=== PATIENT | female | born 1950 | race Caucasian/White ===

== ENCOUNTER 2017-02-23 10:50 | Inpatient (IN) | payer OTHER, MEDICAID, MEDICARE ==
--- NOTE | 2017-02-23 11:02 | ED Physician Chart ---
Chief Complaint/HPI - Patient Information Date Seen:: 02/23/17 Time Seen:: 10:51 Chief Complaint:: Hearing voices. History of Present Illness:: Brought in by ambulance with [place] [employer] officers. Pt has h/o schizophrenia. Pt states she has been hearing voices that tell her to kill herself. Pt has been put on 5150. Pt states she feels depressed. No H.I. or S. I. Pt has no specific bodily pain. Pt appears to be anxious and does not give consistent history. H & P are limited because pt is not fully cooperative. Allergies:: Haldol and geodon. Vitals:: see Nurse Note. Historian:: Patient, Other ([place] PD officer.) Family MD/PCP:: unknown LMP:: Postmenopausal Review:: Nurse's Note Reviewed Review of Systems - Review of Systems General/Constitutional: Other (Pt does not cooperate for ROS.) Past Medical History - Past Medical History Past Medical History: DM Family History: Other (Pt does not cooperate to provide reliable info on FHx.) Social History: Other (Pt does not cooperate to provide reliable info on SHx.) Surgical History: other (Pt does not cooperate to provide reliable info on Surgical Hx.) Psychiatricy History: Schizophrenia Medication: Reviewed Family Medical History - Family Member Mother History Unknown: Yes Physical Exam - Physical Examination General/Constitutional: Awake, Well-developed, well-nourished, Alert, No distress, Non-toxic appearing Other Gen/Cons comments:: Speaks clearly and breathes comfortably. Pt appears to be anxious initially, but pt is now calm and in no distress. Head: Atraumatic Eyes: Lids, conjuctiva normal, PERRL, EOMI Skin: Nl inspection, No rash, No skin lesions, No ecchymosis, Well hydrated, No lymphadenopathy ENMT: External ears, nose nl, Nasal exam nl, Oropharynx nl Neck: Nontender, Full ROM w/o pain, No JVD, No nuchal rigidity, No mass, No stridor Respiratory: Nl effort/Exclusion, Clear to Auscultation, No Wheeze/Rhonchi/Rales Cardio Vascular: RRR, No murmur, gallop, rubs GI: No tenderness/rebounding/guarding, No organomegaly, No hernia, Normal BS's, Nondistended, No mass/bruits, No McBurney tenderness Other GI comments:: Obese but soft. Extremities: No tenderness or effusion, Full ROM, normal strength in all extremities, No edema, Normal digits & nails Neuro/Psych: Alert/oriented (knows her name and that she is in hospital) Other Neuro/Psych comments:: spontaneous movements noticed in all 4 extremities. Pt does not cooperate for full neurological exam. Labs/Radiology/EKG Results - Lab Results Results: Laboratory Tests 02/23/17 02/23/17 02/23/17 11:20 11:20 11:20 WBC 11.9 H RBC 4.14 Hgb 11.3 L Hct 33.4 L MCV 80.7 L MCH 27.3 MCHC Differential 33.9 RDW 15.4 Plt Count 355 MPV 7.2 Neutrophils % 82.0 H Lymphocytes % 10.0 L Monocytes % 7.3 Eosinophils % 0.5 Basophils % 0.2 PT 9.8 INR 0.94 PTT (Actin FS) 23.9 L Sodium 132 L Potassium 4.1 Chloride 103 Carbon Dioxide 22.1 Anion Gap 11.0 BUN 17 Creatinine 0.7 Est GFR ( Amer) > 60.0 Est GFR (Non-Af Amer) > 60.0 BUN/Creatinine Ratio 24.3 Glucose 101 Calcium 9.2 Total Bilirubin 0.4 AST 14 ALT 16 Alkaline Phosphatase 75 Creatine Kinase 47 Troponin I Total Protein 6.5 Albumin 3.8 Globulin 2.7 Albumin/Globulin Ratio 1.4 Salicylates < 25.0 L Acetaminophen < 10.0 L Ethyl Alcohol < 10 02/23/17 11:20 WBC RBC Hgb Hct MCV MCH MCHC Differential RDW Plt Count MPV Neutrophils % Lymphocytes % Monocytes % Eosinophils % Basophils % PT INR PTT (Actin FS) Sodium Potassium Chloride Carbon Dioxide Anion Gap BUN Creatinine Est GFR ( Amer) Est GFR (Non-Af Amer) BUN/Creatinine Ratio Glucose Calcium Total Bilirubin AST ALT Alkaline Phosphatase Creatine Kinase Troponin I < 0.01 L Total Protein Albumin Globulin Albumin/Globulin Ratio Salicylates Acetaminophen Ethyl Alcohol - Radiology Results Results: PCR: Poor inspiration; otherwise, NAD. Official report is pending. - EKG Interpretations EKG Time:: 11:58 Rate & Rhythm: NSR with VR 99 Comments:: RBBB. No acute ischemic changes. ED Septic Shock - . Is Septic Shock (SBP<90, OR Lactate>4 mmol\L) present?: No Reassessment (Disposition) - Reassessment Reassessment:: 1545 Pt has been repeatedly evaluated. Pt became calm after Ativan was given earlier. Pt remains stable. Pt is medically stable. [facility] staff had contacted Dr. Estrada who accepted [facility] Pt's medical conditions are to be managed by in house physician Dr. Marshall, who will also follow on pending lab results. Reassessment Condition:: Improved - Diagnosis Diagnosis:: Schizophrenia with auditory hallucinations. Urinary tract infection. - Patient Disposition Admitted to:: [facility] Admitting Medical Physician:: Mark Marshall Admitting Psych Physician:: Moses Estrada Time:: 15:50 Condition at Disposition:: Stable, Improved ED Discharge Plan - Patient Disposition Admit/Discharge/Transfer: Other Care w/in this hosp Condition at Disposition: Stable
[2017-02-23 11:40] LABS: HEMOGLOBIN 11.3 gm/dL (11.7-16.1)
[2017-02-23 11:42] LABS: % BASOPHILS 0.2 % (0.0-2.0); MEAN CORPUSCULAR HGB CONC 33.9 pg (28.0-36.0); RED BLOOD COUNT 4.14 Mil/cmm (3.80-5.20)
[2017-02-23 11:44] LABS: INR 0.94 (0.5-1.4); PROTHROMBIN TIME (TEST) 9.8 SECONDS (9.5-11.5)
[2017-02-23 11:45] LABS: % EOSINOPHILS 0.5 % (0.0-5.0); % MONOCYTES 7.3 % (2.0-10.0); HEMATOCRIT 33.4 % (35.0-45.0); MEAN CELL VOLUME 80.7 fl (81-100); MEAN CORPUSCULAR HEMOGLOBIN 27.3 pg (27.0-31.0); MEAN PLATELET VOLUME 7.2 fl; NEUTROPHILE ABSOLUTE 9.7 Th/cmm (1.8-8.0); PLATELET COUNT 355 Th/cmm (150-400); RED CELL DISTRIBUTION WIDTH 15.4 % (11.5-20.0); WHITE BLOOD COUNT 11.9 Th/cmm (4.8-10.8)
[2017-02-23 11:48] LABS: ACETAMINOPHEN < 10.0 ug/mL (10.0-30.0); ALB/GLOB RATIO 1.4 (1.0-1.8); ALKALINE PHOSPHATASE 75 U/L (34-104); BILIRUBIN,TOTAL 0.4 mg/dL (0.3-1.0); BUN - UREA NITROGEN 17 mg/dL (7-25); BUN/CREATININE RATIO 24.3; CALCIUM SERUM 9.2 mg/dL (8.6-10.3); CARBON DIOXIDE 22.1 mEq/L (21.0-31.0); CHLORIDE 103 mEq/L (98-107); CREATININE - SERUM 0.7 mg/dL (0.6-1.2); GLUCOSE 101 mg/dL (70-105); POTASSIUM SERUM 4.1 mEq/L (3.5-5.1); SGOT 14 U/L (13-39); SGPT/ALT 16 U/L (7-52); SODIUM SERUM 132 mEq/L (136-145)
[2017-02-23 12:56] LABS: URINE COLOR YELLOW
[2017-02-23 12:57] LABS: URINE BILIRUBIN NEGATIVE (NEGATIVE); URINE BLOOD TRACE (NEGATIVE); URINE GLUCOSE (UA) NEGATIVE (NEGATIVE); URINE KETONE NEGATIVE (NEGATIVE); URINE PH 5.5; URINE PROTEIN TRACE mg/dL (NEGATIVE); URINE UROBILINOGEN 0.2 E.U./dL (0.2 - 1.0)
[2017-02-23 12:58] LABS: URINE RBC 0-2 /hpf (0-5)
[2017-02-23 12:59] LABS: URINE BACTERIA MANY /hpf (NONE SEEN); URINE EPITHELIAL CELLS OCCASIONAL /lpf (FEW)
[2017-02-23 13:16] LABS: AMPHETAMINE URINE NEGATIVE (NEGATIVE); BARBITURATES URINE NEGATIVE (NEGATIVE); METHADONE URINE NEGATIVE (NEGATIVE)
[2017-02-23] MEDS ORDERED: Sulfamethoxazole/TMP 800/160mg Tab PO ONE (13:40)
[2017-02-23] MEDS ORDERED: Sulfamethoxazole/TMP 800/160mg Tab ONE (13:54)
[2017-02-23] MEDS ORDERED: Magnesium Hydroxide (MOM) 30 mL UDC PO PRN ×2 (16:27→17:42)
[2017-02-23] MEDS ORDERED: Maalox 30 mL Cup PO PRN (16:27)
[2017-02-23 16:44] VITALS: BP 152/79
[2017-02-23] MEDS: Benztropine 1 MG TAB PO SCH (18:13)
[2017-02-23] MEDS ORDERED: Non-Formulary Item 1 EA (Trazodone Hcl [Trazodone Hcl] 200 MG) PO SCH (21:00)
[2017-02-23] MEDS: INSULIN ASPART SLIDING SCALE 100 UNITS/ML UNIT SUBQ SCH (21:00)
[2017-02-24] MEDS: INSULIN ASPART SLIDING SCALE 100 UNITS/ML UNIT SUBQ SCH ×4 (07:04→20:53)
[2017-02-24 08:00] LABS: ANION GAP 5.7 (7.0-16.0); CARBON DIOXIDE 25.4 mEq/L (21.0-31.0); POTASSIUM SERUM 4.1 mEq/L (3.5-5.1)
[2017-02-24] MEDS: Aspirin 81mg Chewable Tab PO SCH (08:18)
[2017-02-24] MEDS: Benztropine 1 MG TAB PO SCH ×2 (08:18→16:37)
[2017-02-24] MEDS: Multivitamin Tab PO SCH (08:18)
--- NOTE | 2017-02-24 08:26 | Diagnostic Imaging Report ---
CHEST X-RAY: AP view INDICATION: pain COMPARISON: None FINDINGS: Exam is limited due to body habitus. Mild Chronic lung changes are seen with areas of scarring. No focal consolidation or effusions. Heart size is at the upper limits of normal. Degenerative changes of the spine and shoulders are noted. IMPRESSION: Mild chronic lung changes with areas of scarring. No focal consolidation identified.
--- NOTE | 2017-02-24 13:09 | History & Physical ---
ADMIT DATE: 02/23/2017 PATIENT IDENTIFICATION: The patient is a 67-year-old female. CHIEF COMPLAINT: "I don't feel good." HISTORY OF PRESENT ILLNESS: A 67-year-old [place] female who has a substantial psychiatric and medical history, admitted by Dr. Estrada with legal status of 5150 after the patient was having suicidal thoughts to kill herself. The patient has now been admitted. PAST MEDICAL HISTORY: Remarkable for: 1. Psychotic disorder. 2. Diabetes. 3. Hyperlipidemia. 4. Hypertension. 5. DJD. MEDICATIONS: List has been reviewed and reconciled appropriately. ALLERGIES: THE PATIENT IS ALLERGIC TO GEODON AND HALDOL. SOCIAL HISTORY: The patient lives with her sister in [facility]. The patient does not smoke, does not drink. FAMILY MEDICAL HISTORY: Remarkable for hypertension and diabetes. REVIEW OF SYSTEMS: The patient stated that she cannot walk though the patient is able to get out of the bed without any difficulty. The patient currently denies any chest pain, shortness of breath, palpitation, dizziness, nausea, vomiting, diarrhea, dysuria, hematuria, hematochezia, melena. No history of any seizure or syncopal episode. No weight loss or weight gain. No history of any tingling, numbness. Obstetric and SERVICES MGR history, she is menopausal. She has 4 children. PHYSICAL EXAMINATION: GENERAL: The patient is alert, awake, lying in the bed without any acute distress. VITAL SIGNS: Temperature 97.8, pulse is 74, respiratory rate 18, blood pressure 134/70. SKIN: Warm to touch. HEENT: Normocephalic, atraumatic. Extraocular muscles are intact. Tongue was pink and coated. No oral lesion, no exudate. No sinus tenderness. External auditory canal and tympanic membranes are well visualized. Poor dentition noted. NECK: Supple, no JVD, no hepatojugular reflux. No lymphadenopathy, thyromegaly or carotid bruit. HEART: Both heart sounds are regular. Grade 2/6 systolic murmur noted. CHEST: Lung equal in expansion, no wheezing, no crackles. ABDOMEN: Soft. No guarding, no rigidity. Liver, spleen not palpable. No palpable mass. EXTREMITIES: No edema, no cyanosis, no clubbing. Peripheral pulses are +2. No calf tenderness noted. NEUROLOGIC: Alert, awake, oriented to time, place and person, 2-12 cranial nerves are intact. Power in upper and lower extremities, 5+. Sensation to touch is intact. Babinskis in both toes are going down. No cerebral sign. AVAILABLE DIAGNOSTIC DATA: Has been reviewed. CLINICAL IMPRESSION: 1. Diabetes. 2. Hypertension. 3. Hyperlipidemia. 4. Degenerative joint disease. 5. Psychotic disorder. 6. History of seizure disorder. 7. Fall risk. PLAN: 1. The patient will be resuming her home medicine as patient receiving. 2. Psych medication. 3. Psych followup. 4. Seizure medication. 5. Seizure precaution. 6. General nursing care. 7. The patient is medically stable to participate in activity per the [facility]. 8. Care plan has been reviewed and discussed with staff. 9. We will continue to follow this patient during her stay in the hospital. JOB# [id number]
[2017-02-25] MEDS: INSULIN ASPART SLIDING SCALE 100 UNITS/ML UNIT SUBQ SCH ×4 (06:43→20:43)
[2017-02-25] MEDS: Benztropine 1 MG TAB PO SCH ×2 (08:17→16:16)
[2017-02-25] MEDS: Multivitamin Tab PO SCH (08:17)
[2017-02-25] MEDS: Aspirin 81mg Chewable Tab PO SCH (08:17)
--- NOTE | 2017-02-25 13:00 | Psychosocial Evaluation ---
DATE OF SERVICE: 02/24/2017 IDENTIFYING DATA: The patient is a 67-year-old admitted on involuntary basis in view of her acute agitation and threat to kill herself. CHIEF COMPLAINT: "I don't know this anxiety is making me worse and the voices are becoming too much, I cannot deal with them." HISTORY OF PRESENT ILLNESS: This is one of multiple psychiatric hospitalizations for this patient who has been diagnosed to have schizoaffective disorder and was hospitalized on ____ in [facility] and [facility]. The patient is reported to have been recently hospitalized at [facility] and also at [facility] in [place]. The patient is reporting that the voices are becoming too much and she wants to end her life. The patient had a history of being on pain medications as well as on the benzodiazepines. The patient is insisting that she needs to have 1 mg twice a day of the Ativan, otherwise she is going to be having so much of anxiety. The patient is endorsing to command hallucinations, telling that she needs to run into the traffic. The patient is also stating that I should not be getting in touch with her sister because she feels that the sister is not of any help. Sleep and appetite prior to the hospitalization are reported to be poor. PAST PSYCHIATRIC HISTORY: Please refer to the above. MEDICAL HISTORY AND PHYSICAL EXAMINATION: Requested done by Dr. Hernandez. SUBSTANCE ABUSE HISTORY: None. PHYSICAL OR SEXUAL ABUSE HISTORY: None. LEGAL PROBLEMS: None at this time. STRENGTH AND ASSETS: The patient is motivated. MENTAL STATUS EXAMINATION: The patient is a 67-year-old, looking her stated age, superficially cooperative. Eye contact is poor. Mood is noted to be irritable. Affect is constricted. Insight and judgment at this time are noted to be very much impaired. Impulse control seems to be poor. Coping skills are also noted to be poor. The patient has been having difficult time to cope with the stress. The patient is currently on the Clozaril and is stating that it has been of some help. The patient is stating that SHE IS ALLERGIC TO HALDOL, ____ and ABILIFY. The patient has been taking almost up to 400 mg of the Clozaril and patient is on 300 mg of the trazodone at night time. Even with these medications, the patient is stating that she has been worried about the voices. The patient is not able to contract for safety. The patient is paranoid and responding to internal stimuli. The patient is alert and oriented x 3. Insight and judgment are very much impaired. Impulse control seems to be poor. DIAGNOSTIC IMPRESSION: Schizoaffective disorder. SECONDARY: None. MEDICAL DIAGNOSES: Diabetes mellitus, and as per Dr. Hernandez. IMMEDIATE TREATMENT PLAN: The patient is going to be observed on inpatient unit, provided with supportive psychotherapy. The patient is going to be closely monitored. Once stabilized, the patient is going to be discharged to [facility] to be followed up on an outpatient basis. ESTIMATED LENGTH OF STAY: 3-5 days. DISCHARGE CRITERIA: When she no longer a threat to self or others and be able to cope up with the stress. [facility]# [id number]
--- NOTE | 2017-02-25 18:52 | General Progress Note ---
Subjective - Review of Systems Subjective: PATIENT IS SEEN AND EXAMINED. FEELING OK. REMAIN AFEBRILE. ANXIOUS. DISCUSSED WITH STAFF RE; THEIR CONCERNS AND TREATMENT PLAN. Objective - Results Result Diagrams: 02/23/17 11:20 02/24/17 07:24 Recent Labs: Laboratory Last Values WBC 11.9 Th/cmm (4.8-10.8) H 02/23/17 11:20 RBC 4.14 Mil/cmm (3.80-5.20) 02/23/17 11:20 Hgb 11.3 gm/dL (11.7-16.1) L 02/23/17 11:20 Hct 33.4 % (35.0-45.0) L 02/23/17 11:20 MCV 80.7 fl (81-100) L 02/23/17 11:20 MCH 27.3 pg (27.0-31.0) 02/23/17 11:20 MCHC Differential 33.9 pg (28.0-36.0) 02/23/17 11:20 RDW 15.4 % (11.5-20.0) 02/23/17 11:20 Plt Count 355 Th/cmm (150-400) 02/23/17 11:20 MPV 7.2 fl 02/23/17 11:20 Neutrophils % 82.0 % (40.0-80.0) H 02/23/17 11:20 Lymphocytes % 10.0 % (20.0-50.0) L 02/23/17 11:20 Monocytes % 7.3 % (2.0-10.0) 02/23/17 11:20 Eosinophils % 0.5 % (0.0-5.0) 02/23/17 11:20 Basophils % 0.2 % (0.0-2.0) 02/23/17 11:20 PT 9.8 SECONDS (9.5-11.5) 02/23/17 11:20 INR 0.94 (0.5-1.4) 02/23/17 11:20 PTT (Actin FS) 23.9 SECONDS (26.0-38.0) L 02/23/17 11:20 Sodium 132 mEq/L (136-145) L 02/24/17 07:24 Potassium 4.1 mEq/L (3.5-5.1) 02/24/17 07:24 Chloride 105 mEq/L (98-107) 02/24/17 07:24 Carbon Dioxide 25.4 mEq/L (21.0-31.0) 02/24/17 07:24 Anion Gap 5.7 (7.0-16.0) L 02/24/17 07:24 BUN 17 mg/dL (7-25) 02/23/17 11:20 Creatinine 0.7 mg/dL (0.6-1.2) 02/23/17 11:20 Est GFR ( Amer) > 60.0 ml/min (>90) 02/23/17 11:20 Est GFR (Non-Af Amer) > 60.0 ml/min 02/23/17 11:20 BUN/Creatinine Ratio 24.3 02/23/17 11:20 Glucose 101 mg/dL (70-105) 02/23/17 11:20 POC Glucose 90 MG/DL (70 - 105) 02/25/17 16:46 Calcium 9.2 mg/dL (8.6-10.3) 02/23/17 11:20 Total Bilirubin 0.4 mg/dL (0.3-1.0) 02/23/17 11:20 AST 14 U/L (13-39) 02/23/17 11:20 ALT 16 U/L (7-52) 02/23/17 11:20 Alkaline Phosphatase 75 U/L (34-104) 02/23/17 11:20 Creatine Kinase 47 U/L (30-223) 02/23/17 11:20 Troponin I < 0.01 ng/mL (0.01-0.05) L 02/23/17 11:20 Total Protein 6.5 gm/dL (6.0-8.3) 02/23/17 11:20 Albumin 3.8 gm/dL (3.7-5.3) 02/23/17 11:20 Globulin 2.7 gm/dL 02/23/17 11:20 Albumin/Globulin Ratio 1.4 (1.0-1.8) 02/23/17 11:20 Triglycerides 271 mg/dL (<150) H 02/24/17 07:24 Cholesterol 202 mg/dL (<200) H 02/24/17 07:24 LDL Cholesterol Direct 136 mg/dL (75-193) 02/24/17 07:24 HDL Cholesterol 43 mg/dL (23-92) 02/24/17 07:24 TSH 0.19 uIU/ml (0.34-5.60) L 02/23/17 11:20 Urine Source CLEAN C 02/23/17 12:20 Urine Color YELLOW 02/23/17 12:20 Urine Clarity TURBID (CLEAR) H 02/23/17 12:20 Urine pH 5.5 02/23/17 12:20 Ur Specific Omer 1.015 (1.005-1.030) 02/23/17 12:20 Urine Protein TRACE mg/dL (NEGATIVE) 02/23/17 12:20 Urine Glucose (UA) NEGATIVE mg/dL (NEGATIVE) 02/23/17 12:20 Urine Ketones NEGATIVE mg/dL (NEGATIVE) 02/23/17 12:20 Urine Blood TRACE (NEGATIVE) 02/23/17 12:20 Urine Nitrate POSITIVE (NEGATIVE) H 02/23/17 12:20 Urine Bilirubin NEGATIVE (NEGATIVE) 02/23/17 12:20 Urine Urobilinogen 0.2 E.U./dL (0.2 - 1.0) 02/23/17 12:20 Ur Leukocyte Esterase NEGATIVE (NEGATIVE) 02/23/17 12:20 Urine RBC 0-2 /hpf (0-5) 02/23/17 12:20 Urine WBC 2-5 /hpf (0-5) 02/23/17 12:20 Ur Epithelial Cells OCCASIONAL /lpf (FEW) 02/23/17 12:20 Urine Bacteria MANY /hpf (NONE SEEN) 02/23/17 12:20 Salicylates < 25.0 mg/L (30.0-100.0) L 02/23/17 11:20 Urine Opiates Screen NEGATIVE (NEGATIVE) 02/23/17 12:20 Urine Methadone Screen NEGATIVE (NEGATIVE) 02/23/17 12:20 Acetaminophen < 10.0 ug/mL (10.0-30.0) L 02/23/17 11:20 Ur Barbiturates Screen NEGATIVE (NEGATIVE) 02/23/17 12:20 Ur Tricyclics Screen POSITIVE (NEGATIVE) H 02/23/17 12:20 Ur Phencyclidine Scrn NEGATIVE (NEGATIVE) 02/23/17 12:20 Amphetamines Screen NEGATIVE (NEGATIVE) 02/23/17 12:20 U Methamphetamines Scrn NEGATIVE (NEGATIVE) 02/23/17 12:20 U Benzodiazepines Scrn POSITIVE (NEGATIVE) H 02/23/17 12:20 U Cocaine Metab Screen NEGATIVE (NEGATIVE) 02/23/17 12:20 U Cannabinoids Screen NEGATIVE (NEGATIVE) 02/23/17 12:20 Ethyl Alcohol < 10 mg/dL (0-10) 02/23/17 11:20 RPR NONREACTIVE (NONREACTIVE) 02/24/17 07:24 - Physical Exam Vitals and I&O: Vital Signs Temp 98.2 F 02/25/17 15:44 Pulse 98 02/25/17 15:44 Resp 20 02/25/17 15:44 BP 144/84 02/25/17 15:44 Pulse Ox 100 02/25/17 15:44 Intake & Output 02/24/17 02/25/17 02/25/17 18:59 06:59 18:59 Intake Total 1800 1800 Balance 1800 1800 Weight (lbs) 73.482 kg Intake: Oral 1800 1800 Other: # Voids 4 2 4 # Bowel Movements 0 0 Active Medications: Current Medications Acetaminophen (Tylenol) 650 mg PO Q4HR PRN PRN Reason: pain/fever Stop: 04/24/17 16:26 Last Admin: 02/25/17 09:34 Dose: 650 mg Al Hydrox/Mg Hydrox/Simethicone (Maalox) 30 ml PO Q4HR PRN PRN Reason: GI DISTRESS Stop: 04/24/17 16:26 Aspirin (Aspirin Chewable) 81 mg PO DAILY GEMA Stop: 04/25/17 08:59 Last Admin: 02/25/17 08:17 Dose: 81 mg Benztropine Mesylate (Cogentin) 1 mg PO BID GEMA Stop: 04/24/17 16:59 Last Admin: 02/25/17 16:16 Dose: 1 mg Clozapine (Clozaril) 100 mg PO DAILY GEMA Stop: 04/25/17 08:59 Last Admin: 02/25/17 08:17 Dose: 100 mg Clozapine (Clozaril) 300 mg PO HS GEMA Stop: 04/24/17 20:59 Last Admin: 02/24/17 20:52 Dose: 300 mg Hydroxyzine Pamoate (Vistaril) 25 mg PO BID GEMA PRN Reason: Protocol Stop: 04/24/17 16:59 Last Admin: 02/25/17 16:16 Dose: 25 mg Insulin Aspart (Novolog Insulin Sliding Scale) 1 units SUBQ ACHS GEMA PRN Reason: Protocol Stop: 04/24/17 20:59 Last Admin: 02/25/17 16:54 Dose: Not Given Lorazepam (Ativan) 0.5 mg PO Q6HR PRN; Protocol PRN Reason: Anxiety Stop: 04/24/17 17:40 Last Admin: 02/25/17 16:16 Dose: 0.5 mg Magnesium Hydroxide (Milk Of Magnesia) 30 ml PO DAILY PRN PRN Reason: Constipation Stop: 04/24/17 17:41 Metformin HCl (Glucophage) 500 mg PO BID GEMA Stop: 04/24/17 16:59 Last Admin: 02/25/17 16:16 Dose: 500 mg Multivitamins/Vitamin C (Theragran) 1 tab PO DAILY GEMA Stop: 04/25/17 08:59 Last Admin: 02/25/17 08:17 Dose: 1 tab Trazodone HCl (Desyrel) 200 mg PO HS GEMA Stop: 04/24/17 20:59 Last Admin: 02/24/17 20:52 Dose: 200 mg Zolpidem Tartrate (Ambien) 5 mg PO HS PRN PRN Reason: Insomnia Stop: 04/24/17 16:26 General: Alert, Oriented x3, Cooperative HEENT: Atraumatic, PERRLA, EOMI, Mucous membr. moist/pink Neck: Supple, +2 carotid pulse wo bruit Cardiovascular: Regular rate, Normal S1, Normal S2 Lungs: Clear to auscultation Abdomen: Bowel sounds, Soft Extremities: Other (no edema,diffuse DJD changes.) Neurological: Normal gait, Strength at 5/5 X4 ext, Normal tone Assessment/Plan - Problem List Patient Problems: All Active Problems Diabetes (Acute) E11.9 History of seizure (Acute) Z87.898 Psychosis (Acute) F29 - Assessment Assessment: DIABETES. HTN SEIZURE HYPERLIPEDEMIA DJD PSYCH DISORDER FALL RISK DEBILITY - Plan Plan: MONITOR GLUCOSE AND VITALS MONITOR LAB SEIZURE MEDS SEIZURE PRECAUTIONS PSYCH MEDS PSYCH FOLLOW UP GENERAL NURSING CARE FALL PRECAUTIONS MEDICATION MANAGEMENT SYMPTOMS CONTROL DISCUSSED WITH STAFF. Nutritional Asmnt/Malnutr-PDOC - Dietary Evaluation Malnutrition Findings (Please click <Entered> for more info): Nutritional Asmnt/Malnutrition Start: 02/25/17 14: 20 Text: Status: Complete Freq: Document 02/25/17 14:20 GSUN (Rec: 02/25/17 14:36 [id number]) Nutritional Asmnt/Malnutrition Patient General Information Nutritional Screening Moderate Risk Screening Diagnosis 5150, schizoaffective disorder Pertinent Medical Hx/Surgical Hx DM, hyperlipidemia, HTN, DJD Subjective Information 67 year old female from home. Pt was awake and pleasant, however limited interview due to pt apepared to be focused on something else. RD explained CCHO diet while at facility, pt stated "yes, I drink juice when my sugar is low." Pt reported UBW 168lb. Pt denied GI problems. Pt stated she is crippled, when lunch arrived, observed pt sitting up by herself without difficulties, chewing/ swallowing without difficulties. Avg PO intake is 75%, meeting nutritional needs. Pt stated "I love food. " Current Diet Order/ Nutrition Support [id number] Pertinent Medications Maalox, Novolog, MOM, Glucophage, Theragran Pertinent Labs 02/23: Reviewed. 02/24: triglyceride 271H, cholesterol 202H Nutritional Hx/Data Height 1.63 m Height (Calculated Centimeters) 162.6 Current Weight (lbs) 73.482 kg Weight (Calculated Kilograms) 73.5 Weight (Calculated Grams) 93885.0 Usual body Weight (lbs) 168 [place]elly Body Weight 120 Weight Status Overweight GI Symptoms Food Allergies No Skin Integrity/Comment: Serjio 19. Skin intact. Current %PO Good (75-100%) Estimated Nutritional Goals Calories/Kcals/Kg IBW 120lb/54.5kg Kcals Calculated 5637-6990 (25-30kcal/kg) Protein g/kg: IBW Protein Calculated 55g (1g/kg) Fluid: ml 1363-1635ml (1ml/kcal) Nutritional Problem 1. Problem Problem Altered nutrition related laboratoyr values related to Etiology DM aeb Signs/Symptoms: H&P: DM, on DM medications, POC glucose 136H Intervention/Recommendation Comments 1. Continue on [id number] diet. Avg PO intake is adequate. 2. Recommend cardiac diet on top of [id number]. Pt with elevated triglycerides 271H and cholesterol 202H. Expected Outcomes/Goals Expected Outcomes/Goals 1. PO intake to meet at least 75% of estimated nutritional needs.
[2017-02-26 01:12] LABS: HEP B CORE IGM Negative (Negative); HEP C ANTIBODY <0.1 s/co ratio (0.0-0.9)
[2017-02-26] MEDS: INSULIN ASPART SLIDING SCALE 100 UNITS/ML UNIT SUBQ SCH ×4 (06:52→20:10)
[2017-02-26] MEDS: Multivitamin Tab PO SCH (09:03)
[2017-02-26] MEDS: Benztropine 1 MG TAB PO SCH ×2 (09:03→16:36)
[2017-02-26] MEDS: Aspirin 81mg Chewable Tab PO SCH (09:03)
--- NOTE | 2017-02-26 19:39 | Progress Notes ---
DATE: 02/25/2017 TIME PATIENT SEEN: 5:30 p.m. SUBJECTIVE: Staff was spoken to. The patient is interviewed. Mood is noted to be irritable. Affect is constricted. The patient is threatening to harm self. The patient is not able to contract for safety. The patient is trying to throw herself onto the floor. The patient needs to be medicated. The patient's coping skills are noted to be extremely poor. The patient has been asking for more and more of the Ativan. The patient is currently on 100 mg of the Clozaril in the morning and 300 mg at bedtime. No side effects to the medications are noted. ASSESSMENT: The patient is still grossly psychotic and impulsive. PLAN: To continue the patient with the supportive therapy and follow up. JOB# [id number]
--- NOTE | 2017-02-27 05:54 | Progress Notes ---
DATE: 02/26/2017 TIME PATIENT SEEN: 1:00 p.m. SUBJECTIVE: Staff was spoken to. The patient is interviewed. Mood is noted to be irritable. Affect is constricted. The patient continues to be irritable and angry, has paranoid delusions and is stating that the sister is abusing, she does not want me to get in touch with the sister. The patient has been self abusive. The patient is still insisting and hurting herself. The patient is not able to contract for safety. ASSESSMENT: The patient is still psychotic and not ready to be discharged to a lower level of care in view of her threats to harm self. PLAN: To continue the patient with the supportive therapy and follow up. [facility]# [id number]
[2017-02-27] MEDS: INSULIN ASPART SLIDING SCALE 100 UNITS/ML UNIT SUBQ SCH ×4 (06:32→21:46)
[2017-02-27] MEDS: Multivitamin Tab PO SCH (09:42)
[2017-02-27] MEDS: Aspirin 81mg Chewable Tab PO SCH (09:42)
[2017-02-27] MEDS: Benztropine 1 MG TAB PO SCH ×2 (09:42→17:17)
--- NOTE | 2017-02-27 13:46 | General Progress Note ---
Subjective - Review of Systems Subjective: PATIENT IS SEEN AND EXAMINED. FEELING OK. REMAIN AFEBRILE. ANXIOUS. DISCUSSED WITH STAFF RE; THEIR CONCERNS AND TREATMENT PLAN. Objective - Results Result Diagrams: 02/23/17 11:20 02/24/17 07:24 Recent Labs: Laboratory Last Values WBC 11.9 Th/cmm (4.8-10.8) H 02/23/17 11:20 RBC 4.14 Mil/cmm (3.80-5.20) 02/23/17 11:20 Hgb 11.3 gm/dL (11.7-16.1) L 02/23/17 11:20 Hct 33.4 % (35.0-45.0) L 02/23/17 11:20 MCV 80.7 fl (81-100) L 02/23/17 11:20 MCH 27.3 pg (27.0-31.0) 02/23/17 11:20 MCHC Differential 33.9 pg (28.0-36.0) 02/23/17 11:20 RDW 15.4 % (11.5-20.0) 02/23/17 11:20 Plt Count 355 Th/cmm (150-400) 02/23/17 11:20 MPV 7.2 fl 02/23/17 11:20 Neutrophils % 82.0 % (40.0-80.0) H 02/23/17 11:20 Lymphocytes % 10.0 % (20.0-50.0) L 02/23/17 11:20 Monocytes % 7.3 % (2.0-10.0) 02/23/17 11:20 Eosinophils % 0.5 % (0.0-5.0) 02/23/17 11:20 Basophils % 0.2 % (0.0-2.0) 02/23/17 11:20 PT 9.8 SECONDS (9.5-11.5) 02/23/17 11:20 INR 0.94 (0.5-1.4) 02/23/17 11:20 PTT (Actin FS) 23.9 SECONDS (26.0-38.0) L 02/23/17 11:20 Sodium 132 mEq/L (136-145) L 02/24/17 07:24 Potassium 4.1 mEq/L (3.5-5.1) 02/24/17 07:24 Chloride 105 mEq/L (98-107) 02/24/17 07:24 Carbon Dioxide 25.4 mEq/L (21.0-31.0) 02/24/17 07:24 Anion Gap 5.7 (7.0-16.0) L 02/24/17 07:24 BUN 17 mg/dL (7-25) 02/23/17 11:20 Creatinine 0.7 mg/dL (0.6-1.2) 02/23/17 11:20 Est GFR ( Amer) > 60.0 ml/min (>90) 02/23/17 11:20 Est GFR (Non-Af Amer) > 60.0 ml/min 02/23/17 11:20 BUN/Creatinine Ratio 24.3 02/23/17 11:20 Glucose 101 mg/dL (70-105) 02/23/17 11:20 POC Glucose 108 MG/DL (70 - 105) H 02/27/17 12:06 Calcium 9.2 mg/dL (8.6-10.3) 02/23/17 11:20 Total Bilirubin 0.4 mg/dL (0.3-1.0) 02/23/17 11:20 AST 14 U/L (13-39) 02/23/17 11:20 ALT 16 U/L (7-52) 02/23/17 11:20 Alkaline Phosphatase 75 U/L (34-104) 02/23/17 11:20 Creatine Kinase 47 U/L (30-223) 02/23/17 11:20 Troponin I < 0.01 ng/mL (0.01-0.05) L 02/23/17 11:20 Total Protein 6.5 gm/dL (6.0-8.3) 02/23/17 11:20 Albumin 3.8 gm/dL (3.7-5.3) 02/23/17 11:20 Globulin 2.7 gm/dL 02/23/17 11:20 Albumin/Globulin Ratio 1.4 (1.0-1.8) 02/23/17 11:20 Triglycerides 271 mg/dL (<150) H 02/24/17 07:24 Cholesterol 202 mg/dL (<200) H 02/24/17 07:24 LDL Cholesterol Direct 136 mg/dL (75-193) 02/24/17 07:24 HDL Cholesterol 43 mg/dL (23-92) 02/24/17 07:24 TSH 0.19 uIU/ml (0.34-5.60) L 02/23/17 11:20 Urine Source CLEAN C 02/23/17 12:20 Urine Color YELLOW 02/23/17 12:20 Urine Clarity TURBID (CLEAR) H 02/23/17 12:20 Urine pH 5.5 02/23/17 12:20 Ur Specific [place] 1.015 (1.005-1.030) 02/23/17 12:20 Urine Protein TRACE mg/dL (NEGATIVE) 02/23/17 12:20 Urine Glucose (UA) NEGATIVE mg/dL (NEGATIVE) 02/23/17 12:20 Urine Ketones NEGATIVE mg/dL (NEGATIVE) 02/23/17 12:20 Urine Blood TRACE (NEGATIVE) 02/23/17 12:20 Urine Nitrate POSITIVE (NEGATIVE) H 02/23/17 12:20 Urine Bilirubin NEGATIVE (NEGATIVE) 02/23/17 12:20 Urine Urobilinogen 0.2 E.U./dL (0.2 - 1.0) 02/23/17 12:20 Ur Leukocyte Esterase NEGATIVE (NEGATIVE) 02/23/17 12:20 Urine RBC 0-2 /hpf (0-5) 02/23/17 12:20 Urine WBC 2-5 /hpf (0-5) 02/23/17 12:20 Ur Epithelial Cells OCCASIONAL /lpf (FEW) 02/23/17 12:20 Urine Bacteria MANY /hpf (NONE SEEN) 02/23/17 12:20 Salicylates < 25.0 mg/L (30.0-100.0) L 02/23/17 11:20 Urine Opiates Screen NEGATIVE (NEGATIVE) 02/23/17 12:20 Urine Methadone Screen NEGATIVE (NEGATIVE) 02/23/17 12:20 Acetaminophen < 10.0 ug/mL (10.0-30.0) L 02/23/17 11:20 Ur Barbiturates Screen NEGATIVE (NEGATIVE) 02/23/17 12:20 Ur Tricyclics Screen POSITIVE (NEGATIVE) H 02/23/17 12:20 Ur Phencyclidine Scrn NEGATIVE (NEGATIVE) 02/23/17 12:20 Amphetamines Screen NEGATIVE (NEGATIVE) 02/23/17 12:20 U Methamphetamines Scrn NEGATIVE (NEGATIVE) 02/23/17 12:20 U Benzodiazepines Scrn POSITIVE (NEGATIVE) H 02/23/17 12:20 U Cocaine Metab Screen NEGATIVE (NEGATIVE) 02/23/17 12:20 U Cannabinoids Screen NEGATIVE (NEGATIVE) 02/23/17 12:20 Ethyl Alcohol < 10 mg/dL (0-10) 02/23/17 11:20 RPR NONREACTIVE (NONREACTIVE) 02/24/17 07:24 Hepatitis A IgM Ab Negative (Negative) 02/24/17 07:24 Hep Bs Antigen Negative (Negative) 02/24/17 07:24 Hep B Core IgM Ab Negative (Negative) 02/24/17 07:24 Hepatitis C Antibody <0.1 s/co ratio (0.0-0.9) 02/24/17 07:24 - Physical Exam Vitals and I&O: Vital Signs Temp 97.4 F 02/26/17 15:17 Pulse 94 02/26/17 20:00 Resp 19 02/26/17 20:00 BP 103/56 02/26/17 15:17 Pulse Ox 98 02/26/17 15:17 Intake & Output 02/26/17 02/27/17 02/27/17 18:59 06:59 18:59 Intake Total 1999 Balance 1999 Intake: Oral 1999 Other: # Voids 5 # Bowel Movements 1 Active Medications: Current Medications Acetaminophen (Tylenol) 650 mg PO Q4HR PRN PRN Reason: pain/fever Stop: 04/24/17 16:26 Last Admin: 02/25/17 09:34 Dose: 650 mg Al Hydrox/Mg Hydrox/Simethicone (Maalox) 30 ml PO Q4HR PRN PRN Reason: GI DISTRESS Stop: 04/24/17 16:26 Aspirin (Aspirin Chewable) 81 mg PO DAILY GEMA Stop: 04/25/17 08:59 Last Admin: 02/27/17 09:42 Dose: 81 mg Benztropine Mesylate (Cogentin) 1 mg PO BID GEAM Stop: 04/24/17 16:59 Last Admin: 02/27/17 09:42 Dose: 1 mg Clozapine (Clozaril) 100 mg PO DAILY GEMA Stop: 04/25/17 08:59 Last Admin: 02/27/17 09:42 Dose: 100 mg Clozapine (Clozaril) 300 mg PO HS GEMA Stop: 04/24/17 20:59 Last Admin: 02/26/17 20:09 Dose: 300 mg Hydroxyzine Pamoate (Vistaril) 25 mg PO BID GEMA PRN Reason: Protocol Stop: 04/24/17 16:59 Last Admin: 02/27/17 09:42 Dose: 25 mg Insulin Aspart (Novolog Insulin Sliding Scale) 1 units SUBQ ACHS GEMA PRN Reason: Protocol Stop: 04/24/17 20:59 Last Admin: 02/27/17 12:30 Dose: Not Given Lorazepam (Ativan) 0.5 mg PO Q6HR PRN; Protocol PRN Reason: Anxiety Stop: 04/24/17 17:40 Last Admin: 02/26/17 01:19 Dose: 0.5 mg Magnesium Hydroxide (Milk Of Magnesia) 30 ml PO DAILY PRN PRN Reason: Constipation Stop: 04/24/17 17:41 Metformin HCl (Glucophage) 500 mg PO BID GEMA Stop: 04/24/17 16:59 Last Admin: 02/27/17 09:42 Dose: 500 mg Multivitamins/Vitamin C (Theragran) 1 tab PO DAILY GEMA Stop: 04/25/17 08:59 Last Admin: 02/27/17 09:42 Dose: 1 tab Trazodone HCl (Desyrel) 200 mg PO HS GEMA Stop: 04/24/17 20:59 Last Admin: 02/26/17 20:08 Dose: 200 mg Zolpidem Tartrate (Ambien) 5 mg PO HS PRN PRN Reason: Insomnia Stop: 04/24/17 16:26 Last Admin: 02/26/17 01:19 Dose: 5 mg General: Alert, Cooperative HEENT: Atraumatic, PERRLA, EOMI Neck: Supple, JVD, Thyromegaly Cardiovascular: Regular rate, Normal S1, Normal S2 Lungs: Clear to auscultation Abdomen: Bowel sounds, Soft, Tender Extremities: Clubbing Assessment/Plan - Problem List Patient Problems: All Active Problems Diabetes (Acute) E11.9 History of seizure (Acute) Z87.898 Psychosis (Acute) F29 - Assessment Assessment: DIABETES. HTN SEIZURE HYPERLIPEDEMIA DJD PSYCH DISORDER FALL RISK DEBILITY - Plan Plan: MONITOR GLUCOSE AND VITALS MONITOR LAB SEIZURE MEDS SEIZURE PRECAUTIONS PSYCH MEDS PSYCH FOLLOW UP GENERAL NURSING CARE FALL PRECAUTIONS MEDICATION MANAGEMENT SYMPTOMS CONTROL DISCUSSED WITH STAFF. Nutritional Asmnt/Malnutr-PDOC - Dietary Evaluation Malnutrition Findings (Please click <Entered> for more info): Nutritional Asmnt/Malnutrition Start: 02/25/17 14: 20 Text: Status: Complete Freq: Document 02/25/17 14:20 GSUN (Rec: 02/25/17 14:36 GSUN [email or web address]) Nutritional Asmnt/Malnutrition Patient General Information Nutritional Screening Moderate Risk Screening Diagnosis 5150, schizoaffective disorder Pertinent Medical Hx/Surgical Hx DM, hyperlipidemia, HTN, DJD Subjective Information 67 year old female from home. Pt was awake and pleasant, however limited interview due to pt apepared to be focused on something else. RD explained [facility] diet while at facility, pt stated "yes, I drink juice when my sugar is low." Pt reported UBW 168lb. Pt denied GI problems. Pt stated she is crippled, when lunch arrived, observed pt sitting up by herself without difficulties, chewing/ swallowing without difficulties. Avg PO intake is 75%, meeting nutritional needs. Pt stated "I love food. " Current Diet Order/ Nutrition Support [id number] Pertinent Medications Maalox, Novolog, MOM, Glucophage, Theragran Pertinent Labs 02/23: Reviewed. 02/24: triglyceride 271H, cholesterol 202H Nutritional Hx/Data Height 1.63 m Height (Calculated Centimeters) 162.6 Current Weight (lbs) 73.482 kg Weight (Calculated Kilograms) 73.5 Weight (Calculated Grams) 87189.0 Usual body Weight (lbs) 168 [place] Body Weight 120 Weight Status Overweight GI Symptoms Food Allergies No Skin Integrity/Comment: Serjio 19. Skin intact. Current %PO Good (75-100%) Estimated Nutritional Goals Calories/Kcals/Kg IBW 120lb/54.5kg Kcals Calculated 2824-8148 (25-30kcal/kg) Protein g/kg: IBW Protein Calculated 55g (1g/kg) Fluid: ml 1363-1635ml (1ml/kcal) Nutritional Problem 1. Problem Problem Altered nutrition related laboratoyr values related to Etiology DM aeb Signs/Symptoms: H&P: DM, on DM medications, POC glucose 136H Intervention/Recommendation Comments 1. Continue on [id number] diet. Avg PO intake is adequate. 2. Recommend cardiac diet on top of [id number]. Pt with elevated triglycerides 271H and cholesterol 202H. Expected Outcomes/Goals Expected Outcomes/Goals 1. PO intake to meet at least 75% of estimated nutritional needs.
--- NOTE | 2017-02-28 03:48 | Progress Notes ---
DATE: 02/27/2017 PSYCHIATRIC PROGRESS NOTE TIME PATIENT SEEN: 11:15 a.m. SUBJECTIVE: Staff was spoken to. The patient is interviewed. Mood is noted to be irritable. Affect is constricted. The patient is stating that I should not contact her sister, the patient's sister; however, has been calling and stating that she can have the patient back whenever she is stable. The patient at this time is very impulsive, screaming and yelling and states that she need the medications, more so the Ativan, Klonopin and Xanax. The patient is currently on Clozaril and is able to tolerate the medication. The patient is actively responding to internal stimuli. PLAN: To encourage the patient to verbalize the concerns rather than to act out. If the patient continues to be like this plan is to increase the dose on the Clozaril gradually. JOB# [id number]
[2017-02-28] MEDS: INSULIN ASPART SLIDING SCALE 100 UNITS/ML UNIT SUBQ SCH ×4 (06:37→20:30)
[2017-02-28] MEDS: Aspirin 81mg Chewable Tab PO SCH (08:50)
[2017-02-28] MEDS: Multivitamin Tab PO SCH (08:50)
[2017-02-28] MEDS: Benztropine 1 MG TAB PO SCH ×2 (08:50→16:44)
[2017-02-28] MEDS ORDERED: Haloperidol Lactate 5 mg/mL 1mL Vial IM ONE (10:55)
[2017-02-28] MEDS ORDERED: Haloperidol Lactate 5 mg/mL 1mL Vial ONE (10:56)
--- NOTE | 2017-03-01 02:36 | Progress Notes ---
DATE: 02/28/2017 TIME PATIENT SEEN: 9:45 a.m. SUBJECTIVE: Staff was spoken to. The patient is interviewed. Mood is irritable. Affect is constricted. The patient's coping skills are noted to be very poor. The patient is screaming and yelling. The patient is stating that she is sick, she does not want anything to do with her sister and she wants to hurt herself. The patient has been throwing a temper tantrum and hitting her head. The patient has to be given a dose of Emergency dose of Zyprexa and Benadryl to contain her behavior, the patient has been pushing for more and more of the benzodiazepines. The patient is not ready to be discharged to a lower level of care yet. JOB# [id number]
[2017-03-01] MEDS: INSULIN ASPART SLIDING SCALE 100 UNITS/ML UNIT SUBQ SCH ×4 (06:41→20:49)
[2017-03-01] MEDS: Aspirin 81mg Chewable Tab PO SCH (08:46)
[2017-03-01] MEDS: Benztropine 1 MG TAB PO SCH ×2 (08:47→17:06)
[2017-03-01] MEDS: Multivitamin Tab PO SCH (09:00)
--- NOTE | 2017-03-02 01:23 | Progress Notes ---
DATE: 03/01/2017 PSYCHIATRIC PROGRESS NOTE TIME PATIENT SEEN: 10:15 a.m. SUBJECTIVE: Staff was spoken to. The patient is interviewed. Mood is noted to be irritable. Affect is constricted. Insight and judgment are noted to be impaired. Impulse control is noted to be poor. Coping skills are noted to be very poor. The patient is screaming and yelling. The patient at this time is hard to be redirected. No side effects to the medications are noted. The patient is throwing herself whenever we are trying to come up with a plan with the discharge and the patient is insisting that I should not be contacting her sister. The patient has been having difficult time to comply with the treatment. The patient is currently on Clozaril, but we are getting a message that the patient has not been enrolled into the registry and hence the patient is going to be placed on Zyprexa until the Clozaril issue can be resolved. The patient at this time is grossly psychotic and is having a difficult time to comply with the treatment. The patient is not ready to be discharged because of the psychosis and grave disability. JOB# [id number]
[2017-03-02] MEDS: INSULIN ASPART SLIDING SCALE 100 UNITS/ML UNIT SUBQ SCH ×4 (06:59→20:59)
[2017-03-02] MEDS: Multivitamin Tab PO SCH (09:50)
[2017-03-02] MEDS: Aspirin 81mg Chewable Tab PO SCH (09:51)
[2017-03-02] MEDS: Benztropine 1 MG TAB PO SCH ×2 (09:51→16:06)
--- NOTE | 2017-03-03 02:17 | Progress Notes ---
DATE: 03/02/2017 TIME PATIENT SEEN: 08:15 a.m. SUBJECTIVE: Staff was spoken to. The patient is interviewed. Mood is noted to be irritable. Affect is constricted. The patient is still insisting that she is not getting her medications. The patient is still focused on her Ativan. Whenever she does not get her way, she screams, yells and throws a fit. The patient is informed that possibly she is going to be discharged tomorrow and she does not like it. She does not want to be there with her sister and the patient has no place to return to. ASSESSMENT: The patient is still psychotic. PLAN: To continue the patient with Clozaril and follow the patient up. JOB# [id number]
[2017-03-03] MEDS: INSULIN ASPART SLIDING SCALE 100 UNITS/ML UNIT SUBQ SCH ×2 (06:41→12:32)
[2017-03-03 08:53] LABS: % BASOPHILS 0.4 % (0.0-2.0); % EOSINOPHILS 1.3 % (0.0-5.0); % LYMPHOCYTES 17.2 % (20.0-50.0); % MONOCYTES 7.7 % (2.0-10.0); % NEUTROPHILS 73.4 % (40.0-80.0); HEMATOCRIT 34.1 % (35.0-45.0); HEMOGLOBIN 11.5 gm/dL (11.7-16.1); MEAN CELL VOLUME 81.3 fl (81-100); MEAN CORPUSCULAR HEMOGLOBIN 27.5 pg (27.0-31.0); MEAN CORPUSCULAR HGB CONC 33.8 pg (28.0-36.0); MEAN PLATELET VOLUME 6.5 fl; NEUTROPHILE ABSOLUTE 8.2 Th/cmm (1.8-8.0); RED CELL DISTRIBUTION WIDTH 14.7 % (11.5-20.0)
[2017-03-03 08:56] LABS: PLATELET COUNT 459 Th/cmm (150-400)
[2017-03-03] MEDS: Aspirin 81mg Chewable Tab PO SCH (08:56)
[2017-03-03] MEDS: Benztropine 1 MG TAB PO SCH (08:56)
[2017-03-03] MEDS: Multivitamin Tab PO SCH (08:56)
--- NOTE | 2017-03-04 06:20 | Progress Notes ---
DATE: 03/03/2017 PSYCHIATRIC PROGRESS NOTE TIME PATIENT SEEN: . SUBJECTIVE: Staff was spoken to. The patient is interviewed. Mood is noted to be anxious. Affect is appropriate. The patient has paranoid delusions, but denies any command hallucinations. The patient is not throwing herself onto the floor today. The patient has been made very clear that she needs to be discharged and can be followed up on an outpatient basis. The patient is willing to go to her sister. ASSESSMENT: The patient is still psychotic. PLAN: To continue the patient with supportive therapy and follow the patient up on an outpatient basis. JOB# [id number]
== END 2017-03-03 15:15 | disposition home or self-care (01) | DRG 885 ==
LOC: ER 10:50 → EDBD 15:16 → GERO 15:16
PROVIDERS: ADMIT Psychiatry & Neurology Psychiatry; ATTEND Psychiatry & Neurology Psychiatry
PROC: GZHZZZZ Group Psychotherapy (ICD-10-PCS; principal; 2017-02-23)
DX: F25.9 Schizoaffective disorder, unspecified (principal); E11.9 Type 2 diabetes mellitus without complications; N39.0 Urinary tract infection, site not specified; F29 Unspecified psychosis not due to a substance or known physiological condition; E78.5 Hyperlipidemia, unspecified; M19.90 Unspecified osteoarthritis, unspecified site; Z88.8 Allergy status to other drugs, medicaments and biological substances; Z91.81 History of falling
CPT/HCPCS: 36415-UA; 71010-TC; 80051-TC; 80053-TC; 80061-TC; 80074-90; 80320-TC; 80329-TC; 81001-TC; 82550-TC; 82948-90; 84443-TC; 84484-TC; 85025-TC; 85610-TC; 86592-TC; 93005; A4216; G0410; J1200; J1630; J1815; J2060; Q0177; Z7610

== ENCOUNTER 2017-06-27 18:43 | Inpatient (IN) | payer MEDICARE, MEDICAID ==
[2017-06-27 19:21] LABS: % BASOPHILS 0.8 % (0.0-2.0); % EOSINOPHILS 1.1 % (0.0-5.0); % LYMPHOCYTES 22.4 % (20.0-50.0); % MONOCYTES 7.8 % (2.0-10.0); % NEUTROPHILS 67.9 % (40.0-80.0); HEMATOCRIT 35.1 % (35.0-45.0); HEMOGLOBIN 11.6 gm/dL (11.7-16.1); MEAN CELL VOLUME 80.4 fl (81-100); MEAN CORPUSCULAR HEMOGLOBIN 26.5 pg (27.0-31.0); MEAN CORPUSCULAR HGB CONC 32.9 pg (28.0-36.0); MEAN PLATELET VOLUME 6.8 fl; NEUTROPHILE ABSOLUTE 7.9 Th/cmm (1.8-8.0); PLATELET COUNT 408 Th/cmm (150-400); RED BLOOD COUNT 4.36 Mil/cmm (3.80-5.20); RED CELL DISTRIBUTION WIDTH 14.4 % (11.5-20.0)
[2017-06-27 19:23] LABS: WHITE BLOOD COUNT 11.6 Th/cmm (4.8-10.8)
[2017-06-27] MEDS ORDERED: Haloperidol Lactate 5 mg/mL 1mL Vial IVP ONE (19:35)
[2017-06-27 19:40] LABS: ALB/GLOB RATIO 1.2 (1.0-1.8); ALKALINE PHOSPHATASE 80 U/L (34-104); ANION GAP 10.7 (7.0-16.0); BILIRUBIN,TOTAL 0.4 mg/dL (0.3-1.0); BUN - UREA NITROGEN 12 mg/dL (7-25); CALCIUM SERUM 9.4 mg/dL (8.6-10.3); CARBON DIOXIDE 22.3 mEq/L (21.0-31.0); CHLORIDE 102 mEq/L (98-107); CREATININE - SERUM 0.6 mg/dL (0.6-1.2); GLUCOSE 162 mg/dL (70-105); SGOT 13 U/L (13-39); SGPT/ALT 11 U/L (7-52); SODIUM SERUM 132 mEq/L (136-145)
[2017-06-27] MEDS ORDERED: Haloperidol Lactate 5 mg/mL 1mL Vial ONE (19:43)
[2017-06-27] MEDS ORDERED: Potassium Chloride Elixir 20 mEq /15 mL UDC PO ONE ×2 (19:46→23:41)
[2017-06-27] MEDS ORDERED: Potassium Chloride Elixir 20 mEq /15 mL UDC ONE (19:48)
[2017-06-27 20:05] LABS: INR 0.96 (0.5-1.4)
--- NOTE | 2017-06-27 21:18 | ED Physician Chart ---
Chief Complaint/HPI - Patient Information Date Seen:: 06/20/17 Time Seen:: 19:40 Chief Complaint:: SUICIDAL IDEATION Allergies:: Allergies Allergy/AdvReac Type Severity Reaction Status Date / Time haloperidol [From Haldol] Allergy Verified 03/18/17 12:55 ziprasidone [From Geodon] Allergy Verified 03/18/17 12:55 Vitals:: Vital Signs - 8 hr 06/27/17 06/27/17 19:26 20:29 Temp 99.0 F HR 111 86 RR 18 21 BP 137/73 122/76 O2 Sat % 96 96 Historian:: Patient, Medical Records Review:: Nurse's Note Reviewed, Old Chart Reviewed Review of Systems - Review of Systems General/Constitutional: No fever, No chills, No weight loss, No weakness, No diaphoresis, No edema, No loss of appetite, Other (THE PATIENT IS NOT COOPERATIVE TO GIVE A REVIEW OF SYSTEMS.) Skin: No skin lesions, No rash, No bruising Head: No headache, No light-headedness Eyes: No loss of vision, No pain, No diplopia ENT: No earache, No nasal drainage, No sore throat, No tinnitus Neck: No neck pain, No swelling, No thyromegaly, No stiffness, No mass noted Cardio Vascular: No chest pain, No palpitations, No PND, No orthopnea, No edema Pulmonary: No SOB, No cough, No sputum, No wheezing GI: No nausea, No vomiting, No diarrhea, No pain, No melena, No hematochezia, No constipation, No hematemesis G/U: No dysuria, No frequency, No hematuria Musculoskeletal: No bone or joint pain, No back pain, No muscle pain Endocrine: No polyuria, No polydipsia Psychiatric: No prior psych history, No depression, No anxiety, No suicidal ideation Hematopoietic: No bruising, No lymphadenopathy Allergic/Immuno: No urticaria, No angioedema Neurological: No syncope, No focal symptoms, No weakness, No paresthesia, No headache, No seizure, No dizziness, No confusion, No vertigo Past Medical History - Past Medical History Obtainable: Yes Past Medical History: Thyroid disorder, Dementia Family History: None Social History: Non Smoker, No Alcohol, No Drug Use, Care Facility Surgical History: None Psychiatricy History: Schizophrenia, Bipolar Family Medical History - Family Member Mother History Unknown: Yes Physical Exam - Physical Examination General/Constitutional: Awake, Well-developed, well-nourished, Alert, No distress, GCS 15, Non-toxic appearing, Ambulatory Other Gen/Cons comments:: COMBATIVE AND UNCOOPERATIVE SCREAMING THAT SHE WANTS TO . Head: Atraumatic Eyes: Lids, conjuctiva normal, PERRL, EOMI Skin: Nl inspection, No rash, No skin lesions, No ecchymosis, Well hydrated, No lymphadenopathy ENMT: External ears, nose nl, Nasal exam nl, Lips, teeth, gums nl Neck: Nontender, Full ROM w/o pain, No JVD, No nuchal rigidity, No bruit, No mass, No stridor Respiratory: Nl effort/Exclusion, Clear to Auscultation, No Wheeze/Rhonchi/Rales Cardio Vascular: RRR, No murmur, gallop, rubs, NL S1 S2 GI: No tenderness/rebounding/guarding, No organomegaly, No hernia, Normal BS's, Nondistended, No mass/bruits, No McBurney tenderness : No CVA tenderness Extremities: No tenderness or effusion, Full ROM, normal strength in all extremities, No edema, Normal digits & nails Neuro/Psych: Alert/oriented, DTR's symmetric, Normal sensory exam, Normal motor strength, Judgement/insight normal, Mood normal, Normal gait, No focal deficits Misc: normal gait, Normal back, No paraspinal tenderness Labs/Radiology/EKG Results - Lab Results Results: Laboratory Tests 06/27/17 06/27/17 06/27/17 19:12 19:12 19:12 WBC 11.6 H D RBC 4.36 Hgb 11.6 L Hct 35.1 MCV 80.4 L MCH 26.5 L MCHC Differential 32.9 RDW 14.4 Plt Count 408 H MPV 6.8 Neutrophils % 67.9 Lymphocytes % 22.4 Monocytes % 7.8 Eosinophils % 1.1 Basophils % 0.8 PT 10.0 INR 0.96 Sodium 132 L Potassium 3.0 L Chloride 102 Carbon Dioxide 22.3 Anion Gap 10.7 BUN 12 Creatinine 0.6 Est GFR ( Amer) > 60.0 Est GFR (Non-Af Amer) > 60.0 BUN/Creatinine Ratio 20.0 Glucose 162 H Calcium 9.4 Total Bilirubin 0.4 AST 13 ALT 11 Alkaline Phosphatase 80 Troponin I Total Protein 6.8 Albumin 3.7 Globulin 3.1 Albumin/Globulin Ratio 1.2 TSH 06/27/17 06/27/17 19:12 19:12 WBC RBC Hgb Hct MCV MCH MCHC Differential RDW Plt Count MPV Neutrophils % Lymphocytes % Monocytes % Eosinophils % Basophils % PT INR Sodium Potassium Chloride Carbon Dioxide Anion Gap BUN Creatinine Est GFR ( Amer) Est GFR (Non-Af Amer) BUN/Creatinine Ratio Glucose Calcium Total Bilirubin AST ALT Alkaline Phosphatase Troponin I < 0.01 L Total Protein Albumin Globulin Albumin/Globulin Ratio TSH 0.07 L - Radiology Results Results: CHEST X-RAY = NAD - EKG Interpretations EKG Time:: 19:05 Rate & Rhythm: RATE =104 SINUS [place]: LEFT AXIS Assessment - Assessment General Assessment: THE PATIENT WAS GIVEN IV ATIVAN,HALDOL AND SOLUMEDROL WHICH CONTROL BEHAVIOR. ELECTROLYTE IMBALANCE LOW TSH SUICIDAL IDEATION ED Septic Shock - . Is Septic Shock (SBP<90, OR Lactate>4 mmol\L) present?: No - <6hrs of presentation: Vital Signs: Vital Signs - 8 hr 06/27/17 06/27/17 19:26 20:29 Temp 99.0 F HR 111 86 RR 18 21 BP 137/73 122/76 O2 Sat % 96 96 Reassessment (Disposition) - Reassessment Reassessment Condition:: Improved - Diagnosis Diagnosis:: SUICIDAL IDEATION ELECTROLYTE IMBALANCE LOW TSH - Patient Disposition Discharge/Transfer:: Acute Care w/in this hosp Admitting Medical Physician:: Katerine Quinn Condition at Disposition:: Improved ED Discharge Plan - Patient Disposition Admit/Discharge/Transfer: Acute Care w/in this hosp Condition at Disposition: Improved
[2017-06-27] MEDS ORDERED: cefTRIAXone 1 GM in Sodium Chloride 0.9% 50 ML IV ONE (23:41)
[2017-06-27 23:53] VITALS: BP 131/78
[2017-06-28] MEDS: Sodium Chloride 0.9% 1,000 ML IV SCH ×2 (00:47→14:37)
[2017-06-28 07:29] LABS: % BASOPHILS 0.2 % (0.0-2.0); % EOSINOPHILS 0.1 % (0.0-5.0); % LYMPHOCYTES 9.8 % (20.0-50.0); % MONOCYTES 2.1 % (2.0-10.0); % NEUTROPHILS 87.8 % (40.0-80.0); HEMATOCRIT 35.7 % (35.0-45.0); HEMOGLOBIN 11.8 gm/dL (11.7-16.1); MEAN CELL VOLUME 79.6 fl (81-100); MEAN CORPUSCULAR HEMOGLOBIN 26.3 pg (27.0-31.0); MEAN PLATELET VOLUME 7.9 fl; NEUTROPHILE ABSOLUTE 9.9 Th/cmm (1.8-8.0); PLATELET COUNT 419 Th/cmm (150-400); RED BLOOD COUNT 4.48 Mil/cmm (3.80-5.20); RED CELL DISTRIBUTION WIDTH 14.6 % (11.5-20.0); WHITE BLOOD COUNT 11.2 Th/cmm (4.8-10.8)
[2017-06-28 07:45] LABS: ANION GAP 9.9 (7.0-16.0); BUN - UREA NITROGEN 11 mg/dL (7-25); CALCIUM SERUM 9.8 mg/dL (8.6-10.3); CARBON DIOXIDE 23.9 mEq/L (21.0-31.0); CHLORIDE 102 mEq/L (98-107); CHOLESTEROL 226 mg/dL (<200); CREATININE - SERUM 0.5 mg/dL (0.6-1.2); GLUCOSE 209 mg/dL (70-105); POTASSIUM SERUM 3.8 mEq/L (3.5-5.1); SODIUM SERUM 132 mEq/L (136-145); TRIGLYCERIDES 96 mg/dL (<150)
[2017-06-28 08:46] LABS: URINE BILIRUBIN NEGATIVE (NEGATIVE); URINE BLOOD SMALL (NEGATIVE); URINE GLUCOSE (UA) >=1000 mg/dL (NEGATIVE); URINE KETONE NEGATIVE (NEGATIVE); URINE PH 6.5 (4.6 - 8.0); URINE PROTEIN NEGATIVE (NEGATIVE); URINE UROBILINOGEN 0.2 E.U./dL (0.2 - 1.0)
[2017-06-28 08:53] LABS: URINE BACTERIA OCCASIONAL /hpf (NONE SEEN); URINE COLOR YELLOW; URINE EPITHELIAL CELLS MODERATE /lpf (FEW); URINE WBC 0-2 /hpf (0-5)
--- NOTE | 2017-06-28 08:54 | Diagnostic Imaging Report ---
Portable chest x-ray Time: 1925 History: Congestion Allowing for portable technique the heart size is normal. No focal pulmonary parenchymal processes. No hilar or mediastinal abnormalities. Impression: No acute abnormalities.
[2017-06-28] MEDS ORDERED: Non-Formulary Item 1 EA (Cranberry Fruit Concentrate [Cranberry] 450 MG) PO SCH (09:00)
--- NOTE | 2017-06-28 13:08 | Consultation ---
DATE OF CONSULTATION: 06/28/2017 AGE: 67. SEX: Female. PHYSICIAN: Dr. Quinn. COOK COLD MEAT: Dr. Meneses. TYPE OF THE REPORT: Psychiatric consult. REASON FOR THE CONSULT: "I hear voices ." HISTORY OF PRESENT ILLNESS: The patient has history of schizophrenia. The patient said that she has been hearing voices telling her to kill herself and the patient has been bothered by the voices. She has been feeling hopeless and helpless. The patient also has been interacting minimally with peers and with others. The patient has been taking Clozaril and Ativan. She said that she has not been taking the medications and the voices have been bothering her and she has been more agitated and more irritable. The patient is living in [facility]. The patient said that she has 4 children. She has been very disturbed with the voices . PAST PSYCHIATRIC HISTORY: The patient has history of multiple psychiatric hospitalizations for treatment of what seems to be schizophrenia. PAST MEDICAL HISTORY: As per Dr. Quinn. SOCIAL HISTORY: The patient lives in [facility]. No known alcohol or drug use. MENTAL STATUS EXAM: The patient appears older than her stated age. Anxious. Agitated. Irritable mood. Thought process is circumstantial with flight of ideas. The patient is alert and oriented to time, place, person, and situation. Intact immediate, recent and remote memories. Fair insight and judgment. ASSESSMENT: PRIMARY DIAGNOSIS: Chronic paranoid schizophrenia with acute exacerbation. TREATMENT PLAN: We will restart the Clozaril and Ativan p.r.n. Also, the patient to admit to Geropsych Unit, when medically stable. Thanks to Dr. Quinn and we will follow up with you. JOB# [id number]
[2017-06-28] MEDS: cefTRIAXone 1 GM in 0.9% NS 50 ML IV SCH (21:08)
--- NOTE | 2017-06-28 23:23 | Admit Criteria Form ---
Admit Criteria Forms - Admit Criteria Diagnosis: PSYCHIATRIC DISORDERS (Place 'X' for any and all applicable criteria): Ongoing inpatient care may be needed for 1 or more of the following(1)(2)(3)(4)( 6)(7)(8): [X ]I. Danger to self or others not manageable at lower level of care. [ ]II. Grave disability (eg, inability to perform self care necessary at lower level of care) [ ]III. Agitation or inappropriate behavior interfering with care for primary condition (eg, attempting to discontinue lines or drains prematurely, unable to cooperate with respiratory care) [ ]IV. Severe disability or disorder indicated by ALL of the following: [ ]a) Severe behavioral health disorder-related symptoms or condition indicated by 1 or more of the following: [ ]i) Severe problem with cognition, memory, judgment, or impulse control [ ]ii) Severe clinical manifestations (eg, hallucinations, delusions, other acute psychotic symptoms, sammy, extreme agitation or anxiety) [ ]b) Patient management at lower level of care is not feasible until acute intervention or modification is initiated. Extended stay beyond goal length of stay for the primary condition may be needed until ALLof the following are present(1)(2)(3)(4)7)98)(23): [ ]a) Danger to self or others is absent or manageable at lower level of care [ ]b) Behavior crisis management, including physical or chemical restraints, is required and is not available at a lower level of care. [ ]c) Behavioral symptoms (e.g., agitation, somnolence, inappropriate behavior) are present, and are not manageable at a lower level of care. [ ]d) Patient cannot understand follow-up treatment and crisis plan. [ ]e) Provider and supports are sufficiently available at lower level of care. [ ]f) Patient can participate (e.g., verify absence of plan for harm) and is in needed of monitoring. The original [facility] content created by [facility] has been revised. The portions of the content which have been revised are identified through the use of italic text or in bold, and [facility] has neither reviewed nor approved the modified material. All other unmodified content is copyright [facility]. Please see references footnoted in the original [facility] edition 2017 Admit Criteria Met?: Yes
[2017-06-29] MEDS: Sodium Chloride 0.9% 1,000 ML IV SCH ×3 (04:14→16:19)
--- NOTE | 2017-06-29 11:32 | Progress Notes ---
DATE: 06/29/2017 SUBJECTIVE: The patient is screaming and yelling "help me the voices are bad." The patient is still complaining of increased hallucinations and of loud voices. The patient said that the voices are bothering her and that the voices are loud. She also is still very anxious and very tense and shaky. The patient also is fearful. The patient is already taking Clozaril at a dose of 300 mg every day, but she is still actively hallucinating and actively psychotic and looks like Clozaril is not helping her enough with her psychosis. ASSESSMENT: The patient is still severely psychotic. TREATMENT PLAN: We will add Seroquel in a dose of 100 mg twice a day. Also, we will continue working on her psychosis. Also, the patient is a candidate for Geropsych when bed is available in order to monitor and adjust her medications. At the same time, we will continue working on her irritability and we will continue to follow up. JOB# [id number]
[2017-06-29] MEDS ORDERED: VTE Chemical Prophylaxis Screen/Admission MC PRN (13:46)
--- NOTE | 2017-06-29 15:59 | History & Physical ---
ADMIT DATE: 06/29/2017 IDENTIFICATION: The patient is very well known to me. The patient is from [facility] as well as from the ____. This patient known to have underlying psychosis. Apparently, she was very confused and hearing voices, and the patient was sent to the Emergency Room for Geropsychiatric consultation, seen here in consultation and the patient was found to have medical issues including electrolyte imbalance, so this patient was admitted initially to the medical castillo. The patient is taking Clozaril and Ativan and the patient has a history of multiple psychiatric problem and the patient has suicidal ideation. REVIEW OF SYSTEMS: Essentially was negative. PAST MEDICAL HISTORY: As enumerated above, history of thyroid disorder, history of dementia, history of schizophrenia, bipolar. PHYSICAL EXAMINATION: HEAD: Normal. ENT: Normal. NECK: Supple, ____. LUNGS: Clear. CARDIOVASCULAR SYSTEM: S1, S2 heard. ABDOMEN: Soft. Bowel sounds are heard. CENTRAL NERVOUS SYSTEM: Grossly normal. DIAGNOSES: Electrolyte imbalance, thyroid disorder, history of suicidal ideation, history of underlying bipolar and schizophrenia. PLAN: I will admit the patient and will have Dr. Tena see the patient and we will also have professor of environmental studies see the patient. JOB# [id number]
--- NOTE | 2017-06-29 16:14 | Infectious Disease Prog Note ---
Infectious Disease Subjective - Review of Systems Service Date: 06/29/17 Subjective: cc uti depression hpi- pt on 1:1 observation ros no fevr o/e vss chaest claer abd soft ext no edema dx uti plan rocephin Infectious Disease Objective - Results Result Diagrams: 06/28/17 06:14 06/28/17 06:14 Recent Labs: Laboratory Last Values WBC 11.2 Th/cmm (4.8-10.8) H 06/28/17 06:14 RBC 4.48 Mil/cmm (3.80-5.20) 06/28/17 06:14 Hgb 11.8 gm/dL (11.7-16.1) 06/28/17 06:14 Hct 35.7 % (35.0-45.0) 06/28/17 06:14 MCV 79.6 fl (81-100) L 06/28/17 06:14 MCH 26.3 pg (27.0-31.0) L 06/28/17 06:14 MCHC Differential 33.0 pg (28.0-36.0) 06/28/17 06:14 RDW 14.6 % (11.5-20.0) 06/28/17 06:14 Plt Count 419 Th/cmm (150-400) H 06/28/17 06:14 MPV 7.9 fl 06/28/17 06:14 Neutrophils % 87.8 % (40.0-80.0) H 06/28/17 06:14 Lymphocytes % 9.8 % (20.0-50.0) L 06/28/17 06:14 Monocytes % 2.1 % (2.0-10.0) 06/28/17 06:14 Eosinophils % 0.1 % (0.0-5.0) 06/28/17 06:14 Basophils % 0.2 % (0.0-2.0) 06/28/17 06:14 PT 10.0 SECONDS (9.5-11.5) 06/27/17 19:12 INR 0.96 (0.5-1.4) 06/27/17 19:12 Sodium 132 mEq/L (136-145) L 06/28/17 06:14 Potassium 3.8 mEq/L (3.5-5.1) 06/28/17 06:14 Chloride 102 mEq/L (98-107) 06/28/17 06:14 Carbon Dioxide 23.9 mEq/L (21.0-31.0) 06/28/17 06:14 Anion Gap 9.9 (7.0-16.0) 06/28/17 06:14 BUN 11 mg/dL (7-25) 06/28/17 06:14 Creatinine 0.5 mg/dL (0.6-1.2) L 06/28/17 06:14 Est GFR ( Amer) > 60.0 ml/min (>90) 06/28/17 06:14 Est GFR (Non-Af Amer) > 60.0 ml/min 06/28/17 06:14 BUN/Creatinine Ratio 22.0 06/28/17 06:14 Glucose 209 mg/dL (70-105) H 06/28/17 06:14 Hemoglobin A1c % 5.8 % (4.0-6.0) 06/28/17 07:48 Calcium 9.8 mg/dL (8.6-10.3) 06/28/17 06:14 Total Bilirubin 0.4 mg/dL (0.3-1.0) 06/27/17 19:12 AST 13 U/L (13-39) 06/27/17 19:12 ALT 11 U/L (7-52) 06/27/17 19:12 Alkaline Phosphatase 80 U/L (34-104) 06/27/17 19:12 Troponin I < 0.01 ng/mL (0.01-0.05) L 06/27/17 19:12 Total Protein 6.8 gm/dL (6.0-8.3) 06/27/17 19:12 Albumin 3.7 gm/dL (3.7-5.3) 06/27/17 19:12 Globulin 3.1 gm/dL 06/27/17 19:12 Albumin/Globulin Ratio 1.2 (1.0-1.8) 06/27/17 19:12 Triglycerides 96 mg/dL (<150) 06/28/17 06:14 Cholesterol 226 mg/dL (<200) H 06/28/17 06:14 LDL Cholesterol Direct 181 mg/dL (75-193) 06/28/17 06:14 HDL Cholesterol 45 mg/dL (23-92) 06/28/17 06:14 TSH 0.08 uIU/ml (0.34-5.60) L 06/28/17 06:14 Urine Source CLEAN C 06/28/17 08:33 Urine Color YELLOW 06/28/17 08:33 Urine Clarity SLIGHT CLOUDY (CLEAR) 06/28/17 08:33 Urine pH 6.5 (4.6 - 8.0) 06/28/17 08:33 Ur Specific [place] 1.015 (1.005-1.030) 06/28/17 08:33 Urine Protein NEGATIVE mg/dL (NEGATIVE) 06/28/17 08:33 Urine Glucose (UA) >=1000 mg/dL (NEGATIVE) H 06/28/17 08:33 Urine Ketones NEGATIVE mg/dL (NEGATIVE) 06/28/17 08:33 Urine Blood SMALL (NEGATIVE) H 06/28/17 08:33 Urine Nitrate NEGATIVE (NEGATIVE) 06/28/17 08:33 Urine Bilirubin NEGATIVE (NEGATIVE) 06/28/17 08:33 Urine Urobilinogen 0.2 E.U./dL (0.2 - 1.0) 06/28/17 08:33 Ur Leukocyte Esterase NEGATIVE (NEGATIVE) 06/28/17 08:33 Urine RBC 5-10 /hpf (0-5) H 06/28/17 08:33 Urine WBC 0-2 /hpf (0-5) 06/28/17 08:33 Ur Epithelial Cells MODERATE /lpf (FEW) 06/28/17 08:33 Urine Bacteria OCCASIONAL /hpf (NONE SEEN) 06/28/17 08:33 RPR NONREACTIVE (NONREACTIVE) 06/27/17 19:12 - Physical Exam Vitals and I&O: Vital Signs Temp 98.2 F 06/29/17 12:00 Pulse 102 06/29/17 12:00 Resp 18 06/29/17 12:00 BP 107/56 06/29/17 12:00 Pulse Ox 96 06/29/17 12:00 Intake & Output 06/28/17 06/29/17 06/29/17 18:59 06:59 18:59 Intake Total 1000 1050 278.333 Balance 1000 1050 278.333 Weight (lbs) 73.437 kg 73.028 kg Intake: Intake, IV Amount 1000 1050 278.333 Sodium Chloride 0.9% 1, 1000 1000 278.333 000 ml @ 100 mls/hr IV . Q10H GEMA Rx#:[id number] cefTRIAXone 1 gm In 50 Sodium Chloride 0.9% 50 ml @ 100 mls/hr IV Q24HR GEMA Rx#:[id number] Other: # Voids 1 Active Medications: Current Medications Clonazepam (Klonopin) 1 mg PO BID GEMA PRN Reason: Protocol Stop: 08/28/17 16:59 Clozapine (Clozaril) 300 mg PO HS GEMA PRN Reason: Protocol Stop: 08/27/17 20:59 Last Admin: 06/28/17 21:12 Dose: 300 mg Sodium Chloride (Nacl 0.9%) 1,000 mls @ 100 mls/hr IV .Q10H GEMA Stop: 08/26/17 23:40 Last Admin: 06/29/17 07:01 Dose: 100 mls/hr Ceftriaxone Sodium 1 gm/ (Sodium Chloride) 50 mls @ 100 mls/hr IV Q24HR GEMA Stop: 08/27/17 20:59 Last Infusion: 06/29/17 02:34 Dose: Infused Lorazepam (Ativan) 1 mg PO Q4HR PRN; Protocol PRN Reason: Anxiety Stop: 08/27/17 12:12 Last Admin: 06/29/17 15:06 Dose: 1 mg Miscellaneous (Vte Chemical Prophylaxis Screen/ Admission) 1 ea MC PRN PRN PRN Reason: PROTOCOL Stop: 08/28/17 13:45 Mupirocin (Bactroban Oint) 1 appl NS BID GEMA Stop: 07/04/17 09:01 Quetiapine Fumarate (Seroquel) 100 mg PO BID GEMA PRN Reason: Protocol Stop: 08/28/17 16:59 Zolpidem Tartrate (Ambien) 5 mg PO HS GEMA Stop: 08/27/17 20:59 Last Admin: 06/28/17 21:10 Dose: 5 mg - Procedures Procedures: Procedures Procedure Code Date GROUP PSYCHOTHERAPY GZHZZZZ 02/23/17 Infectious Disease Assmt/Plan - Problem List Patient Problems: All Active Problems ELEVATED WBC WITH AGITATION (Acute) Diabetes (Acute) E11.9 History of seizure (Acute) Z87.898 Psychosis (Acute) F29 Nutritional Asmnt/Malnutr-PDOC - Dietary Evaluation Malnutrition Findings (Please click <Entered> for more info): Nutritional Asmnt/Malnutrition Start: 06/28/17 11: 37 Text: Status: Complete Freq: Document 06/28/17 11:37 MARTINA (Rec: 06/28/17 11:41 MARTINA ANAND- FNS1) Nutritional Asmnt/Malnutrition Patient General Information Nutritional Screening High Risk Screening Diagnosis suicidal ideation Pertinent Medical Hx/Surgical Hx schizophrenia, bipolar, thyroid d/o, dementia Subjective Information Pt sitting up in bed at time of visit and very confused to answer RD questions Current Diet Order/ Nutrition Support Low sodium Patient / S.O Can't verbalize diet edu Pertinent Medications NS @100ml/hr (2400ml/day) Pertinent Labs Na 132, K 3.8, Cl 102, CO2 23. 9, BUN 11, Cr 0.5, Ca 9.8 Nutritional Hx/Data Height 1.63 m Height (Calculated Centimeters) 162.6 Current Weight (lbs) 71.214 kg Weight (Calculated Kilograms) 71.2 Weight (Calculated Grams) 83113.0 Recent Weight Change No Weight Status Overweight GI Symptoms GI Symptoms None Food Allergies No Cultural/Ethnic/Gnosticism Belief unknown Usual diet at home unknown Skin Integrity/Comment: meron score 20 Current %PO Good (75-100%) Estimated Nutritional Goals BEE in Kcals: Using Current wt Calories/Kcals/Kg 25-30kcals/kg Kcals Calculated 1775-2130kcals/day Protein: Using Current wt Protein g/kg+/kg Protein Calculated 71g/kg Fluid: ml 1775-2130ml/day (1ml/kcal) Nutritional Problem 1. Problem Problem No nutrition diagnosis at this time. Intervention/Recommendation Comments Recommend continuing Mechanical soft chopped diet. Expected Outcomes/Goals Expected Outcomes/Goals PO intake >75%
--- NOTE | 2017-06-29 19:56 | Consultation ---
DATE OF CONSULTATION: 06/28/2017 PRIMARY PHYSICIAN: Kai Barclay M.D. HISTORY OF PRESENT ILLNESS: This 67-year-old female was brought to the Emergency Room with complaint of depression and suicidal ideation. The patient's workup shows UTI. Infectious consultation was called. The patient started Rocephin, discussed with the staff. Also psychiatric consultation with Dr. Meneses was called. The patient complains of generalized body aches and increased frequency of the urine. UA has rbc's. Urine culture was ordered. The patient has been ____ for last two days. PAST MEDICAL HISTORY: Type 2 diabetes, depression. SOCIAL HISTORY: Nonsmoker. ALLERGIES: HALDOL and GEODON. REVIEW OF SYSTEMS: A 14-point review of systems negative except above. PHYSICAL EXAMINATION: GENERAL: The patient is alert, awake, well-nourished female. VITAL SIGNS: Temperature 99, pulse 111, respirations 18, and blood pressure 137/73. HEENT: Mild pallor, no icterus or plaque. NECK: Supple. LUNGS: Breath sounds bilateral vesicular. CARDIOVASCULAR: S1, S2. ABDOMEN: Soft. Bowel sounds present. EXTREMITIES: No thyroid. No cervical lymph nodes. UA shows 5-10 rbc's. Chest x-ray reviewed, clear lung owens. White count is 11,000, hemoglobin is 11 grams, and platelets 408,000. Potassium is low 3. DIAGNOSES: Urinary tract infection. Rocephin, hypokalemia supplement, RPR pending, also MRSA screening ordered. Rest of the care as ordered in CPOE. Also, the patient was put on 1:[address] Quinn for this consultation. JOB# [id number]
[2017-06-29] MEDS: cefTRIAXone 1 GM in 0.9% NS 50 ML IV SCH (21:18)
[2017-06-30] MEDS: Sodium Chloride 0.9% 1,000 ML IV SCH (06:22)
[2017-06-30] MEDS: INSULIN ASPART SLIDING SCALE 100 UNITS/ML UNIT SUBQ SCH ×2 (07:06→11:13)
[2017-06-30 07:15] LABS: % BASOPHILS 0.2 % (0.0-2.0); % EOSINOPHILS 2.6 % (0.0-5.0); % LYMPHOCYTES 35.7 % (20.0-50.0); % MONOCYTES 9.3 % (2.0-10.0); % NEUTROPHILS 52.2 % (40.0-80.0); HEMATOCRIT 36.9 % (35.0-45.0); HEMOGLOBIN 12.3 gm/dL (11.7-16.1); MEAN CELL VOLUME 80.2 fl (81-100); MEAN CORPUSCULAR HEMOGLOBIN 26.6 pg (27.0-31.0); MEAN CORPUSCULAR HGB CONC 33.2 pg (28.0-36.0); MEAN PLATELET VOLUME 7.3 fl; NEUTROPHILE ABSOLUTE 5.8 Th/cmm (1.8-8.0); PLATELET COUNT 412 Th/cmm (150-400); RED BLOOD COUNT 4.61 Mil/cmm (3.80-5.20); RED CELL DISTRIBUTION WIDTH 14.9 % (11.5-20.0); WHITE BLOOD COUNT 11.1 Th/cmm (4.8-10.8)
[2017-06-30 07:29] LABS: ALB/GLOB RATIO 1.1 (1.0-1.8); ALKALINE PHOSPHATASE 70 U/L (34-104); ANION GAP 7.5 (7.0-16.0); BILIRUBIN,TOTAL 0.3 mg/dL (0.3-1.0); BUN - UREA NITROGEN 15 mg/dL (7-25); CALCIUM SERUM 9.2 mg/dL (8.6-10.3); CARBON DIOXIDE 26.7 mEq/L (21.0-31.0); CHLORIDE 107 mEq/L (98-107); CREATININE - SERUM 0.6 mg/dL (0.6-1.2); GLUCOSE 90 mg/dL (70-105); POTASSIUM SERUM 4.2 mEq/L (3.5-5.1); SGOT 8 U/L (13-39); SGPT/ALT 9 U/L (7-52); SODIUM SERUM 137 mEq/L (136-145)
--- NOTE | 2017-06-30 12:14 | Diagnostic Imaging Report ---
Thyroid ultrasound HISTORY: Thyroid nodules Prior exams are not available for comparison. The right lobe of the thyroid gland measures 4.7 x 2.0 x 2.0 cm. An approximate 2.7 x 2.0 x 2.1 cm heterogeneous solid nodule is noted in the mid/lower pole the right lobe. A smaller (0.9 cm) heterogeneous nodule is noted in the upper pole of the right lobe. The left lobe of thyroid gland measures 3.2 x 1.2 x 1.0 cm. There is an approximate 1.4 x 0.8 x 0.9 cm heterogeneous solid nodule in the lower pole. Additional subcentimeter nodules are noted in the mid and upper pole. IMPRESSION: 1. Multiple bilateral predominantly solid thyroid nodules. The multiplicity suggests changes associated with a multinodular goiter. As a minimum, a follow-up ultrasound exam in 4 months recommended for monitoring. It should be noted that the histology of an individual thyroid nodule cannot be definitely determined sonographically.
--- NOTE | 2017-06-30 12:55 | Diagnostic Imaging Report ---
Bilateral lower extremity Doppler venous ultrasound exam HISTORY: Pain/swelling Sonographic sector images were obtained through the deep venous systems of both legs. Associated Doppler data was obtained. The exam demonstrates patency of the common femoral, superficial femoral, popliteal, and posterior tibial veins bilaterally. Specifically, no thrombus is seen. There are normal compressibility and augmentation responses. IMPRESSION: Negative exam for deep vein thrombophlebitis.
--- NOTE | 2017-06-30 12:56 | Diagnostic Imaging Report ---
Bilateral lower extremity Doppler arterial ultrasound exam HISTORY: Pain, peripheral vascular disease Sonographic sector images were obtained through the arterial systems of both legs. Associated Doppler data was obtained. The exam of the right leg demonstrates triphasic waveforms of the common femoral, superficial femoral, popliteal, anterior tibial, posterior tibial, and dorsalis pedis arteries. Mild focal plaque is noted within the distal portion of the right superficial femoral artery. Maintenance of normal velocities throughout the arterial system. The ankle-brachial index is normal (1.12). The exam of the left leg demonstrates triphasic waveforms throughout the arterial system. Mild focal plaque noted within the distal superficial femoral artery. Velocities are normal. The left ankle-brachial index is normal (1.01). IMPRESSION: 1. Evidence of mild atherosclerotic changes within the distal superficial femoral arteries bilaterally. No significant narrowing or stenosis.
[2017-06-30 15:46] LABS: T4 TOTAL 8.65 ug/dl (6.09-12.23)
[2017-06-30 15:53] LABS: T3 (TRIIDOTHYRONNE) 0.78 ng/mL (0.87-1.78)
--- NOTE | 2017-06-30 16:34 | Infectious Disease Prog Note ---
Infectious Disease Subjective - Review of Systems Service Date: 06/30/17 Subjective: cc uti depression hpi- pt on 1:1 observation schedule for geropsyche transfer d/w pmd ros no fevr o/e vss felice claer abd soft ext no edema dx uti plan rocephin Infectious Disease Objective - Results Result Diagrams: 06/30/17 06:35 06/30/17 06:35 Recent Labs: Laboratory Last Values WBC 11.1 Th/cmm (4.8-10.8) H 06/30/17 06:35 RBC 4.61 Mil/cmm (3.80-5.20) 06/30/17 06:35 Hgb 12.3 gm/dL (11.7-16.1) 06/30/17 06:35 Hct 36.9 % (35.0-45.0) 06/30/17 06:35 MCV 80.2 fl (81-100) L 06/30/17 06:35 MCH 26.6 pg (27.0-31.0) L 06/30/17 06:35 MCHC Differential 33.2 pg (28.0-36.0) 06/30/17 06:35 RDW 14.9 % (11.5-20.0) 06/30/17 06:35 Plt Count 412 Th/cmm (150-400) H 06/30/17 06:35 MPV 7.3 fl 06/30/17 06:35 Neutrophils % 52.2 % (40.0-80.0) 06/30/17 06:35 Lymphocytes % 35.7 % (20.0-50.0) 06/30/17 06:35 Monocytes % 9.3 % (2.0-10.0) 06/30/17 06:35 Eosinophils % 2.6 % (0.0-5.0) 06/30/17 06:35 Basophils % 0.2 % (0.0-2.0) 06/30/17 06:35 ESR 19 mm/hr (0-30) 06/30/17 06:35 PT 10.0 SECONDS (9.5-11.5) 06/27/17 19:12 INR 0.96 (0.5-1.4) 06/27/17 19:12 Sodium 137 mEq/L (136-145) 06/30/17 06:35 Potassium 4.2 mEq/L (3.5-5.1) 06/30/17 06:35 Chloride 107 mEq/L (98-107) 06/30/17 06:35 Carbon Dioxide 26.7 mEq/L (21.0-31.0) 06/30/17 06:35 Anion Gap 7.5 (7.0-16.0) 06/30/17 06:35 BUN 15 mg/dL (7-25) 06/30/17 06:35 Creatinine 0.6 mg/dL (0.6-1.2) 06/30/17 06:35 Est GFR ( Amer) > 60.0 ml/min (>90) 06/30/17 06:35 Est GFR (Non-Af Amer) > 60.0 ml/min 06/30/17 06:35 BUN/Creatinine Ratio 25.0 06/30/17 06:35 Glucose 90 mg/dL (70-105) 06/30/17 06:35 POC Glucose 87 MG/DL (70 - 105) 06/30/17 06:20 Hemoglobin A1c % 5.8 % (4.0-6.0) 06/28/17 07:48 Calcium 9.2 mg/dL (8.6-10.3) 06/30/17 06:35 Total Bilirubin 0.3 mg/dL (0.3-1.0) 06/30/17 06:35 AST 8 U/L (13-39) L 06/30/17 06:35 ALT 9 U/L (7-52) 06/30/17 06:35 Alkaline Phosphatase 70 U/L (34-104) 06/30/17 06:35 Creatine Kinase 31 U/L (30-223) 06/29/17 14:54 Troponin I < 0.01 ng/mL (0.01-0.05) L 06/27/17 19:12 Total Protein 6.2 gm/dL (6.0-8.3) 06/30/17 06:35 Albumin 3.3 gm/dL (3.7-5.3) L 06/30/17 06:35 Globulin 2.9 gm/dL 06/30/17 06:35 Albumin/Globulin Ratio 1.1 (1.0-1.8) 06/30/17 06:35 Triglycerides 96 mg/dL (<150) 06/28/17 06:14 Cholesterol 226 mg/dL (<200) H 06/28/17 06:14 LDL Cholesterol Direct 181 mg/dL (75-193) 06/28/17 06:14 HDL Cholesterol 45 mg/dL (23-92) 06/28/17 06:14 Thyroxine (T4) 8.65 ug/dl (6.09-12.23) 06/29/17 14:54 Reverse T3 0.78 ng/mL (0.87-1.78) L 06/29/17 14:54 TSH 0.08 uIU/ml (0.34-5.60) L 06/28/17 06:14 Urine Source CLEAN C 06/28/17 08:33 Urine Color YELLOW 06/28/17 08:33 Urine Clarity SLIGHT CLOUDY (CLEAR) 06/28/17 08:33 Urine pH 6.5 (4.6 - 8.0) 06/28/17 08:33 Ur Specific [place] 1.015 (1.005-1.030) 06/28/17 08:33 Urine Protein NEGATIVE mg/dL (NEGATIVE) 06/28/17 08:33 Urine Glucose (UA) >=1000 mg/dL (NEGATIVE) H 06/28/17 08:33 Urine Ketones NEGATIVE mg/dL (NEGATIVE) 06/28/17 08:33 Urine Blood SMALL (NEGATIVE) H 06/28/17 08:33 Urine Nitrate NEGATIVE (NEGATIVE) 06/28/17 08:33 Urine Bilirubin NEGATIVE (NEGATIVE) 06/28/17 08:33 Urine Urobilinogen 0.2 E.U./dL (0.2 - 1.0) 06/28/17 08:33 Ur Leukocyte Esterase NEGATIVE (NEGATIVE) 06/28/17 08:33 Urine RBC 5-10 /hpf (0-5) H 06/28/17 08:33 Urine WBC 0-2 /hpf (0-5) 06/28/17 08:33 Ur Epithelial Cells MODERATE /lpf (FEW) 06/28/17 08:33 Urine Bacteria OCCASIONAL /hpf (NONE SEEN) 06/28/17 08:33 RPR NONREACTIVE (NONREACTIVE) 06/27/17 19:12 - Physical Exam Vitals and I&O: Vital Signs Temp 98.1 F 06/30/17 14:16 Pulse 75 06/30/17 14:16 Resp 18 06/30/17 14:16 BP 125/71 06/30/17 14:16 Pulse Ox 98 06/30/17 14:16 Intake & Output 06/29/17 06/30/17 06/30/17 18:59 06:59 18:59 Intake Total 6801.907 3374 Balance 8788.841 1311 Weight (lbs) 73.028 kg 72.665 kg Intake: Intake, IV Amount 3668.642 6822 Sodium Chloride 0.9% 1, 8572.471 4501 000 ml @ 100 mls/hr IV . Q10H GEMA Rx#:[id number] cefTRIAXone 1 gm In 50 Sodium Chloride 0.9% 50 ml @ 100 mls/hr IV Q24HR GEMA Rx#:[id number] Oral 100 - Procedures Procedures: Procedures Procedure Code Date GROUP PSYCHOTHERAPY GZHZZZZ 02/23/17 Infectious Disease Assmt/Plan - Problem List Patient Problems: All Active Problems Diabetes (Acute) E11.9 ELEVATED WBC WITH AGITATION (Acute) History of seizure (Acute) Z87.898 Psychosis (Acute) F29 Nutritional Asmnt/Malnutr-PDOC - Dietary Evaluation Malnutrition Findings (Please click <Entered> for more info): Nutritional Asmnt/Malnutrition Start: 06/28/17 11: 37 Text: Status: Complete Freq: Document 06/28/17 11:37 MARTINA (Rec: 06/28/17 11:41 MARTINA ANAND- FNS1) Nutritional Asmnt/Malnutrition Patient General Information Nutritional Screening High Risk Screening Diagnosis suicidal ideation Pertinent Medical Hx/Surgical Hx schizophrenia, bipolar, thyroid d/o, dementia Subjective Information Pt sitting up in bed at time of visit and very confused to answer RD questions Current Diet Order/ Nutrition Support Low sodium Patient / S.O Can't verbalize diet edu Pertinent Medications NS @100ml/hr (2400ml/day) Pertinent Labs Na 132, K 3.8, Cl 102, CO2 23. 9, BUN 11, Cr 0.5, Ca 9.8 Nutritional Hx/Data Height 1.63 m Height (Calculated Centimeters) 162.6 Current Weight (lbs) 71.214 kg Weight (Calculated Kilograms) 71.2 Weight (Calculated Grams) 71006.0 Recent Weight Change No Weight Status Overweight GI Symptoms GI Symptoms None Food Allergies No Cultural/Ethnic/Islam Belief unknown Usual diet at home unknown Skin Integrity/Comment: meron score 20 Current %PO Good (75-100%) Estimated Nutritional Goals BEE in Kcals: Using Current wt Calories/Kcals/Kg 25-30kcals/kg Kcals Calculated 1775-2130kcals/day Protein: Using Current wt Protein g/kg+/kg Protein Calculated 71g/kg Fluid: ml 1775-2130ml/day (1ml/kcal) Nutritional Problem 1. Problem Problem No nutrition diagnosis at this time. Intervention/Recommendation Comments Recommend continuing Mechanical soft chopped diet. Expected Outcomes/Goals Expected Outcomes/Goals PO intake >75%
--- NOTE | 2017-06-30 21:09 | Progress Notes ---
DATE: 06/30/2017 HISTORY OF PRESENT ILLNESS: This is a 67-year-old female with history of schizophrenia, hearing voices, still with psychological distress, turmoil. Staff noted she remains irritable, violent, aggressive, still symptomatic and not safe for a lower level of care at this time. PAST PSYCHIATRIC HISTORY: Multiple admissions. SOCIAL HISTORY: Noted. MENTAL STATUS EXAMINATION: Stated age, anxious, irritable, restless, still experiencing psychotic symptoms, not shravan for safety. PROVISIONAL DIAGNOSIS: Schizophrenia. RECOMMENDATIONS AND PLAN: Continue medications as set forth by Dr. Meneses. We will transfer her to Geropsych Unit. We are currently pending a bed today. JOB# [id number]
[2017-07-01 02:15] LABS: T3 FREE 2.7 pg/mL (2.0-4.4); T4 FREE 1.35 ng/dL (0.82-1.77)
[2017-07-01 15:11] LABS: CORTISOL AM 13.5 ug/dL (6.2-19.4)
== END 2017-06-30 15:42 | DRG 871 ==
LOC: ER 18:43 → MSI 21:20
PROVIDERS: ADMIT Internal Medicine; ATTEND Internal Medicine
DX: A41.9 Sepsis, unspecified organism (principal); G93.41 Metabolic encephalopathy; R45.851 Suicidal ideations; F03.90 Unspecified dementia, unspecified severity, without behavioral disturbance, psychotic disturbance, mood disturbance, and anxiety; E87.8 Other disorders of electrolyte and fluid balance, not elsewhere classified; N39.0 Urinary tract infection, site not specified; F20.0 Paranoid schizophrenia; F31.9 Bipolar disorder, unspecified; E87.6 Hypokalemia; E11.9 Type 2 diabetes mellitus without complications; E07.9 Disorder of thyroid, unspecified; Z88.8 Allergy status to other drugs, medicaments and biological substances; R65.11 Systemic inflammatory response syndrome (SIRS) of non-infectious origin with acute organ dysfunction
CPT/HCPCS: 36415-UA; 71010-TC; 76536-TC; 80048-TC; 80053-TC; 80061-TC; 81001-TC; 82533-90; 82550-TC; 82948-90; 83036-90; 84146-90; 84436-TC; 84439-90; 84443-TC; 84479-90; 84479-TC; 84484-TC; 85025-TC; 85610-TC; 85652-TC; 86376-90; 86592-TC; 87070; 87086-90; 93005; 93925-TC; 93970-TC-50; 96374; 96375; J0696; J1630; J1815; J2060; J2930; J7030; Z7610

== ENCOUNTER 2017-06-30 15:43 | Inpatient (IN) | payer MEDICARE, MEDICAID ==
[2017-06-30 17:08] VITALS: BP 108/70
[2017-06-30] MEDS: INSULIN ASPART SLIDING SCALE 100 UNITS/ML UNIT SUBQ SCH (20:33)
[2017-07-01] MEDS: INSULIN ASPART SLIDING SCALE 100 UNITS/ML UNIT SUBQ SCH ×4 (06:31→20:51)
--- NOTE | 2017-07-01 11:32 | History & Physical ---
ADMIT DATE: 06/30/2017 IDENTIFYING INFORMATION: The patient is a 67-year-old female. CHIEF COMPLAINT: "I feel shitty." HISTORY OF PRESENT ILLNESS: The patient was transferred from the medical floor to the service of Dr. Meneses. She was admitted on a voluntary basis on the 02/24/2017. She threatened to kill herself. She said that her anxiety is getting worse, becoming too much. She has multiple prior hospitalizations. When I talked to her, she said that the voices tell her to eat her shit. The patient has a history of being hospitalized at [facility] before, also [facility] in [place]. She feels paranoid towards her sister. Her sleep and appetite is poor. PAST PSYCHIATRIC HISTORY: Multiple prior admissions to different facilities. MEDICATIONS: Prior to admission are Clozaril 300 mg at bedtime and she is also on Seroquel 100 mg twice a day. MEDICAL HISTORY: As per Dr. Hernandez. ALLERGIES: The patient is allergic to GEODON and HALDOL. FAMILY AND SOCIAL HISTORY: The patient has no legal problem. No history of abuse, otherwise, noncontributory. MENTAL STATUS EXAMINATION: The patient is appropriately dressed, not very well groomed. She was in bed. She kept saying I am shitty, I am hearing voices telling me to eat my shit. She denies that the voices to harm herself, but she feels like she does not to live anymore. She denies any intent to harm anyone. She has not been sleeping or eating well, unable to participate in a meaningful conversation and tell me more information about her family. She kept telling me I feel shitty. Her long- and short-term memory is intact. She denies any specific plan to harm herself today. Her insight and judgment is impaired. IMPRESSION: AXIS I: Schizoaffective disorder. MEDICAL DIAGNOSES: Diabetes mellitus. Her assets, she wants to get help; negative, poor coping skills. INITIAL TREATMENT PLAN: I will be increasing the Seroquel to 150 mg twice a day. Continue with the Clozaril 300. We will do group therapy, milieu therapy and individual therapy. ESTIMATED LENGTH OF STAY: 3-7 days. DISCHARGE CRITERIA: Decreasing psychosis, agitation and no longer suicidal after discharge to outpatient treatment. JOB# [id number]
--- NOTE | 2017-07-01 12:09 | History and Physical ---
History of Present Illness - HPI Chief Complaint: agitation HPI: THIS IS A 67 YEAR OLD FEMALE WHO IS A HALF-WAY RESIDENT WHO IS ADMITTED TO THE GEROPSYCH UNIT DUE TO INCREASE IN AGITATION IN THE HALF-WAY. PATIENT HAS A PAST MEDICAL HISTORY OF SEIZURE, DEMENTIA, AND HYPERLIPIDEMIA Vital Signs: Last Vital Signs Temp 98.3 F 07/01/17 06:50 Pulse 95 07/01/17 06:50 Resp 19 07/01/17 06:50 BP 107/73 07/01/17 06:50 Pulse Ox 98 07/01/17 06:50 Past Medical History Cardiovascular: Report: No Pertinent Hx Pulmonary: Report: No Pertinent Hx INTERNET SECURITY SPECIALIST: Report: No Pertinent Hx GI: Report: No Pertinent Hx Psych: Report: Depression, Psychosis Musculoskeletal: Report: No Pertinent Hx Rheumatologic: Report: No pertinent Hx Infectious Disease: Report: No Pertinent Hx Renal/: Report: No Pertinent Hx Endocrine: Report: No Pertinent Hx Dermatology: Report: No Pertinent Hx - Past Surgical History Past Surgical History: No pertinent Hx Family Medical History - Family Member Mother History Unknown: Yes Ethnicity: Unknown Social History Smoke: No Alcohol: None Drugs: None Lives: Retirement - Medications Home Medications: Home Medication Medication Instructions Recorded Type Cranberry Fruit Concentrate 450 mg PO DAILY 06/27/17 History [Cranberry] Lorazepam [Ativan] 0.5 mg PO Q6H PRN 06/27/17 History Zolpidem Tartrate [Ambien] 5 mg PO HS 06/27/17 History cloZAPine [Clozaril] 300 mg PO HS 06/27/17 History Insulin Aspart Sliding Scale 0 units SUBQ ACHS unit 06/30/17 Rx [NovoLOG INSULIN SLIDING SCALE] Lorazepam [Ativan] 1 mg PO Q4HR PRN tab 06/30/17 Rx Mupirocin Oint [Mupirocin*] 1 appl NS BID appl 06/30/17 Rx QUEtiapine Fumarate [SEROquel] 100 mg PO BID tab 06/30/17 Rx Zolpidem Tartrate [Ambien] 5 mg PO HS tab 06/30/17 Rx clonazePAM [klonoPIN] 1 mg PO BID tab 06/30/17 Rx - Allergies Allergies/Adverse Reactions: Allergies Allergy/AdvReac Type Severity Reaction Status Date / Time haloperidol [From Haldol] Allergy Verified 03/18/17 12:55 ziprasidone [From Geodon] Allergy Verified 03/18/17 12:55 Review of Systems - Review of Systems Constitutional: Denies: Fever Eyes: Denies: No Significant ENT: Report: No Significant Respiratory: Report: No Significant Cardiovascular: Report: No Significant Gastrointestinal: Report: No Significant Genitourinary: Report: No Significant Musculoskeletal: Report: No Significant Neurological: Report: No Significant Physical Exam - Physical Exam HEENT: Report: Ears Nose Throat within normal limits Neck: Report: Within normal limits Cardiovascular Systems: Report: +s1/s2 noted, Regular, Rate and Rhythm Respiratory: Report: Breath Sounds are within normal limits Abdomen: Report: Non-tender to palpation Back: Report: Inspection of back is within normal limits. Extremities: Report: Non-tender to palpation. Skin: Report: Color of skin is within normal limits Neuro/Psych: Report: Mood affect is within normal limits - Lab Results All Lab Results last 24 hours: Laboratory Last Values POC Glucose 107 MG/DL (70 - 105) H 06/30/17 20:23 Laboratory Results - last 24 hr 06/30/17 20:23 POC Glucose 107 H - Assessment Assessment: psychosis dementia agitation seizure hyperlipidemia - Plan Plan: seizure precautions low fat diet continue current tx
[2017-07-02] MEDS: INSULIN ASPART SLIDING SCALE 100 UNITS/ML UNIT SUBQ SCH ×4 (06:53→20:00)
--- NOTE | 2017-07-02 14:47 | General Progress Note ---
Subjective - Review of Systems Events since last encounter: patient still agitated irritable , confused Objective - Results Recent Labs: Laboratory Last Values POC Glucose 82 MG/DL (70 - 105) 07/02/17 12:06 - Physical Exam Vitals and I&O: Vital Signs Temp 98.3 F 07/02/17 05:24 Pulse 82 07/02/17 05:24 Resp 20 07/02/17 05:24 BP 101/51 07/02/17 05:24 Pulse Ox 93 07/02/17 05:24 Intake & Output 07/01/17 07/02/17 07/02/17 18:59 06:59 18:59 Intake Total 2200 120 Balance 2200 120 Weight (lbs) 72.847 kg Intake: Oral 2200 120 Other: # Voids 4 2 # Bowel Movements 0 0 Active Medications: Current Medications Clonazepam (Klonopin) 1 mg PO BID GEMA PRN Reason: Protocol Stop: 08/30/17 08:59 Last Admin: 07/02/17 09:21 Dose: 1 mg Clozapine (Clozaril) 300 mg PO HS GEMA PRN Reason: Protocol Stop: 08/29/17 20:59 Last Admin: 07/01/17 20:51 Dose: 300 mg Insulin Aspart (Novolog Insulin Sliding Scale) 3 - 12 units SUBQ ACHS GEMA PRN Reason: Protocol Stop: 08/29/17 20:59 Last Admin: 07/02/17 12:29 Dose: Not Given Lorazepam (Ativan) 1 mg PO Q4HR PRN; Protocol PRN Reason: Anxiety Stop: 08/29/17 17:14 Last Admin: 07/02/17 12:28 Dose: 1 mg Mupirocin (Bactroban Oint) 1 appl NS BID GEMA Stop: 07/05/17 08:59 Last Admin: 07/01/17 16:57 Dose: Not Given Quetiapine Fumarate (Seroquel) 150 mg PO BID GEMA PRN Reason: Protocol Stop: 08/30/17 10:59 Last Admin: 07/02/17 09:21 Dose: 150 mg Zolpidem Tartrate (Ambien) 5 mg PO HS GEMA Stop: 08/29/17 20:59 Last Admin: 07/01/17 20:51 Dose: 5 mg General: No acute distress HEENT: Atraumatic Neck: no Thyromegaly Cardiovascular: Regular rate, Normal S1, Normal S2 - Procedures Procedures: Procedures Procedure Code Date GROUP PSYCHOTHERAPY GZHZZZZ 02/23/17 Assessment/Plan - Problem List Patient Problems: All Active Problems Diabetes (Acute) E11.9 ELEVATED WBC WITH AGITATION (Acute) History of seizure (Acute) Z87.898 Psychosis (Acute) F29 - Assessment Assessment: psychosis dementia agitation seizure hyperlipidemia - Plan Plan: seizure precautions low fat diet continue current tx Nutritional Asmnt/Malnutr-PDOC - Dietary Evaluation Malnutrition Findings (Please click <Entered> for more info): Nutritional Asmnt/Malnutrition Start: 07/02/17 11: 43 Text: Status: Complete Freq: Document 07/02/17 11:43 GSUN (Rec: 07/02/17 11:56 GSUN [id number]) Nutritional Asmnt/Malnutrition Patient General Information Nutritional Screening Moderate Risk Screening Diagnosis Schizoaffective disorder Pertinent Medical Hx/Surgical Hx Seizure, dementia, hyperlipidemia, depression, psychosis, DM Subjective Information 67 year old female from SNF. Pt was awake but very anxious during visit, able to answer basic questions. Pt kept saying she can not drink or eat because the voices will kill her. RD explained importance of nutrition and assured pt that nursing staff will be around during meal time to provide safe environment. Pt appeared more calm and asked about lunch. Observed empty milk carton at bedside. Avg PO intake 100% of meals yesterday. ACT ENGLISH TUTOR stated pt has good appetite. Pt is not suitable for DM education at this time. No muscle fat wasting noted. Current Diet Order/ Nutrition Support [id number] Pertinent Medications Novolog, Seroquel Pertinent Labs POC glucose 107-146 since adm Nutritional Hx/Data Height 1.63 m Height (Calculated Centimeters) 162.6 Current Weight (lbs) 72.847 kg Weight (Calculated Kilograms) 72.8 Weight (Calculated Grams) 58301.9 [place] Body Weight 120 Weight Status Overweight GI Symptoms Food Allergies No Skin Integrity/Comment: Serjio 17. Skin intact. Current %PO Good (75-100%) Estimated Nutritional Goals Calories/Kcals/Kg IBW 120lb/54.5kg Kcals Calculated 1363-1635kcal (26-30kcal/kg) Protein Calculated 55g (1g/kg) Fluid: ml 1363-1635ml (1ml/kcal) Nutritional Problem 1. Problem Problem Altered nutrition related laboratory values related to Etiology DM aeb Signs/Symptoms: H&P, elevated glucose, pt is on Novolog Intervention/Recommendation Comments 1. Continue with current diet order. Avg PO intake is adequate. 2. Nursing staff to provide supervision during meals and reassure pt of a safe meal environment. Pt mentioned the voice will kill her if pt eats /drinks. Expected Outcomes/Goals Expected Outcomes/Goals 1. PO intake continue to meet at least 75% of estimated nutritional needs.
--- NOTE | 2017-07-03 05:21 | Progress Notes ---
DATE: 07/02/2017 SUBJECTIVE: Chart reviewed and the patient interviewed. Also discussed the patient's condition with the staff and reviewed records and labs. The patient is still actively hallucinating and actively psychotic. The patient is complaining of "the voices are too loud and very bad." She is still complaining of hallucinations and irritability. The patient also is still suspicious and is still paranoid. Otherwise, the patient is compliant with taking medications, and the patient denies any side effects of medications n.p.o. ASSESSMENT: The patient is still psychotic. TREATMENT PLAN: Continue monitoring her behavior and her condition closely. Also, continue working on adjusting psychotropic medications and follow up. JOB# [id number]
[2017-07-03] MEDS: INSULIN ASPART SLIDING SCALE 100 UNITS/ML UNIT SUBQ SCH ×4 (06:45→21:01)
--- NOTE | 2017-07-03 10:29 | General Progress Note ---
Subjective - Review of Systems Events since last encounter: patient chart reviewed no significant change Objective - Results Recent Labs: Laboratory Last Values POC Glucose 112 MG/DL (70 - 105) H 07/03/17 05:58 - Physical Exam Vitals and I&O: Vital Signs Temp 97.8 F 07/03/17 07:01 Pulse 75 07/03/17 07:01 Resp 18 07/03/17 07:01 BP 109/70 07/03/17 07:01 Pulse Ox 96 07/03/17 07:01 Intake & Output 07/02/17 07/03/17 07/03/17 18:59 06:59 18:59 Intake Total 900 120 Balance 900 120 Weight (lbs) 72.847 kg Intake: Oral 900 120 Other: # Voids 3 3 # Bowel Movements 0 Active Medications: Current Medications Clonazepam (Klonopin) 1 mg PO BID GEMA PRN Reason: Protocol Stop: 08/30/17 08:59 Last Admin: 07/03/17 08:19 Dose: 1 mg Clozapine (Clozaril) 300 mg PO HS GEMA PRN Reason: Protocol Stop: 08/29/17 20:59 Last Admin: 07/02/17 20:00 Dose: 300 mg Insulin Aspart (Novolog Insulin Sliding Scale) 3 - 12 units SUBQ ACHS GEMA PRN Reason: Protocol Stop: 08/29/17 20:59 Last Admin: 07/03/17 06:45 Dose: Not Given Lorazepam (Ativan) 1 mg PO Q4HR PRN; Protocol PRN Reason: Anxiety Stop: 08/29/17 17:14 Last Admin: 07/03/17 08:19 Dose: 1 mg Mupirocin (Bactroban Oint) 1 appl NS BID GEMA Stop: 07/05/17 08:59 Last Admin: 07/03/17 08:19 Dose: 1 appl Quetiapine Fumarate (Seroquel) 150 mg PO BID GEMA PRN Reason: Protocol Stop: 08/30/17 10:59 Last Admin: 07/03/17 08:19 Dose: 150 mg Zolpidem Tartrate (Ambien) 5 mg PO HS GEMA Stop: 08/29/17 20:59 Last Admin: 07/02/17 20:00 Dose: 5 mg General: No acute distress HEENT: Atraumatic Neck: no Thyromegaly Cardiovascular: Regular rate, Normal S1, Normal S2 - Procedures Procedures: Procedures Procedure Code Date GROUP PSYCHOTHERAPY GZHZZZZ 02/23/17 Assessment/Plan - Problem List Patient Problems: All Active Problems Diabetes (Acute) E11.9 ELEVATED WBC WITH AGITATION (Acute) History of seizure (Acute) Z87.898 Psychosis (Acute) F29 - Assessment Assessment: psychosis dementia agitation seizure hyperlipidemia - Plan Plan: seizure precautions low fat diet continue current tx Nutritional Asmnt/Malnutr-PDOC - Dietary Evaluation Malnutrition Findings (Please click <Entered> for more info): Nutritional Asmnt/Malnutrition Start: 07/02/17 11: 43 Text: Status: Complete Freq: Document 07/02/17 11:43 GSUN (Rec: 07/02/17 11:56 GSUN [id number]) Nutritional Asmnt/Malnutrition Patient General Information Nutritional Screening Moderate Risk Screening Diagnosis Schizoaffective disorder Pertinent Medical Hx/Surgical Hx Seizure, dementia, hyperlipidemia, depression, psychosis, DM Subjective Information 67 year old female from SNF. Pt was awake but very anxious during visit, able to answer basic questions. Pt kept saying she can not drink or eat because the voices will kill her. RD explained importance of nutrition and assured pt that nursing staff will be around during meal time to provide safe environment. Pt appeared more calm and asked about lunch. Observed empty milk carton at bedside. Avg PO intake 100% of meals yesterday. FILM PRINTER stated pt has good appetite. Pt is not suitable for DM education at this time. No muscle fat wasting noted. Current Diet Order/ Nutrition Support [id number] Pertinent Medications Novolog, Seroquel Pertinent Labs POC glucose 107-146 since adm Nutritional Hx/Data Height 1.63 m Height (Calculated Centimeters) 162.6 Current Weight (lbs) 72.847 kg Weight (Calculated Kilograms) 72.8 Weight (Calculated Grams) 02027.9 [place] Body Weight 120 Weight Status Overweight GI Symptoms Food Allergies No Skin Integrity/Comment: Serjio 17. Skin intact. Current %PO Good (75-100%) Estimated Nutritional Goals Calories/Kcals/Kg IBW 120lb/54.5kg Kcals Calculated 1363-1635kcal (26-30kcal/kg) Protein Calculated 55g (1g/kg) Fluid: ml 1363-1635ml (1ml/kcal) Nutritional Problem 1. Problem Problem Altered nutrition related laboratory values related to Etiology DM aeb Signs/Symptoms: H&P, elevated glucose, pt is on Novolog Intervention/Recommendation Comments 1. Continue with current diet order. Avg PO intake is adequate. 2. Nursing staff to provide supervision during meals and reassure pt of a safe meal environment. Pt mentioned the voice will kill her if pt eats /drinks. Expected Outcomes/Goals Expected Outcomes/Goals 1. PO intake continue to meet at least 75% of estimated nutritional needs.
--- NOTE | 2017-07-04 07:39 | Progress Notes ---
DATE: 07/03/2017 Case was discussed with staff of the patient, reviewed records. This is a well-known case to me. I have seen her before covering for Dr. Meneses. The patient continues to report feeling depressed, wanting to harm herself. No specific plan. Hear voices at times telling her to harm herself, but she denies that she has any plan to harm herself at this point. She is in the group room, participating. She has been compliant with the medication with no side effects. No sedation, no nausea. I will be increasing her Seroquel dose to 175 mg twice a day and so far no side effects, no sedation, no nausea, no extrapyramidal symptoms. She is also on Clozaril 300 mg at bedtime, clonazepam, and we will continue to work with the patient in group therapy, milieu therapy, and adjust medications as needed. JOB# [id number]
--- NOTE | 2017-07-04 13:20 | General Progress Note ---
Subjective - Review of Systems Events since last encounter: patient continues to feel depressed no other complaints Objective - Results Recent Labs: Laboratory Last Values POC Glucose 87 MG/DL (70 - 105) 07/03/17 16:38 - Physical Exam Vitals and I&O: Vital Signs Temp 98.2 F 07/03/17 14:00 Pulse 91 07/03/17 14:00 Resp 20 07/03/17 14:00 BP 105/65 07/03/17 14:00 Pulse Ox 97 07/03/17 14:00 Intake & Output 07/03/17 07/04/17 07/04/17 18:59 06:59 18:59 Intake Total 1120 Balance 1120 Intake: Oral 1120 Other: # Voids 4 # Bowel Movements 1 Active Medications: Current Medications Clonazepam (Klonopin) 1 mg PO BID GEMA PRN Reason: Protocol Stop: 08/30/17 08:59 Last Admin: 07/04/17 09:19 Dose: 1 mg Clozapine (Clozaril) 300 mg PO HS GEMA PRN Reason: Protocol Stop: 08/29/17 20:59 Last Admin: 07/03/17 20:59 Dose: 300 mg Insulin Aspart (Novolog Insulin Sliding Scale) 3 - 12 units SUBQ ACHS GEMA PRN Reason: Protocol Stop: 08/29/17 20:59 Last Admin: 07/03/17 21:01 Dose: Not Given Lorazepam (Ativan) 1 mg PO Q4HR PRN; Protocol PRN Reason: Anxiety Stop: 08/29/17 17:14 Last Admin: 07/03/17 16:50 Dose: 1 mg Mupirocin (Bactroban Oint) 1 appl NS BID GEMA Stop: 07/05/17 08:59 Last Admin: 07/03/17 16:50 Dose: 1 appl Quetiapine Fumarate (Seroquel) 200 mg PO BID GEMA Stop: 09/02/17 12:23 Zolpidem Tartrate (Ambien) 5 mg PO HS GEMA Stop: 08/29/17 20:59 Last Admin: 07/03/17 20:59 Dose: 5 mg General: No acute distress HEENT: Atraumatic Neck: no Thyromegaly Cardiovascular: Regular rate, Normal S1, Normal S2 - Procedures Procedures: Procedures Procedure Code Date GROUP PSYCHOTHERAPY GZHZZZZ 02/23/17 Assessment/Plan - Problem List Patient Problems: All Active Problems Diabetes (Acute) E11.9 ELEVATED WBC WITH AGITATION (Acute) History of seizure (Acute) Z87.898 Psychosis (Acute) F29 - Assessment Assessment: psychosis dementia agitation seizure hyperlipidemia - Plan Plan: seizure precautions low fat diet continue current tx Nutritional Asmnt/Malnutr-PDOC - Dietary Evaluation Malnutrition Findings (Please click <Entered> for more info): Nutritional Asmnt/Malnutrition Start: 07/02/17 11: 43 Text: Status: Complete Freq: Document 07/02/17 11:43 GSUN (Rec: 07/02/17 11:56 GSUN [id number]) Nutritional Asmnt/Malnutrition Patient General Information Nutritional Screening Moderate Risk Screening Diagnosis Schizoaffective disorder Pertinent Medical Hx/Surgical Hx Seizure, dementia, hyperlipidemia, depression, psychosis, DM Subjective Information 67 year old female from SNF. Pt was awake but very anxious during visit, able to answer basic questions. Pt kept saying she can not drink or eat because the voices will kill her. RD explained importance of nutrition and assured pt that nursing staff will be around during meal time to provide safe environment. Pt appeared more calm and asked about lunch. Observed empty milk carton at bedside. Avg PO intake 100% of meals yesterday. INSTALLERS MECHANICAL stated pt has good appetite. Pt is not suitable for DM education at this time. No muscle fat wasting noted. Current Diet Order/ Nutrition Support [id number] Pertinent Medications Novolog, Seroquel Pertinent Labs POC glucose 107-146 since adm Nutritional Hx/Data Height 1.63 m Height (Calculated Centimeters) 162.6 Current Weight (lbs) 72.847 kg Weight (Calculated Kilograms) 72.8 Weight (Calculated Grams) 79551.9 [place] Body Weight 120 Weight Status Overweight GI Symptoms Food Allergies No Skin Integrity/Comment: Serjio 17. Skin intact. Current %PO Good (75-100%) Estimated Nutritional Goals Calories/Kcals/Kg IBW 120lb/54.5kg Kcals Calculated 1363-1635kcal (26-30kcal/kg) Protein Calculated 55g (1g/kg) Fluid: ml 1363-1635ml (1ml/kcal) Nutritional Problem 1. Problem Problem Altered nutrition related laboratory values related to Etiology DM aeb Signs/Symptoms: H&P, elevated glucose, pt is on Novolog Intervention/Recommendation Comments 1. Continue with current diet order. Avg PO intake is adequate. 2. Nursing staff to provide supervision during meals and reassure pt of a safe meal environment. Pt mentioned the voice will kill her if pt eats /drinks. Expected Outcomes/Goals Expected Outcomes/Goals 1. PO intake continue to meet at least 75% of estimated nutritional needs.
[2017-07-04] MEDS: INSULIN ASPART SLIDING SCALE 100 UNITS/ML UNIT SUBQ SCH ×4 (16:48→21:34)
--- NOTE | 2017-07-05 05:39 | Progress Notes ---
DATE: 07/04/2017 Case was discussed with staff of the patient, reviewed records. The patient continues to report hearing voices, sometimes telling her to harm herself, but she does not want to harm herself and she wants to get help. She wants her medication increased and she is on Clozaril 300 mg at bedtime and Seroquel 175 mg twice a day. I will be increasing the Seroquel to 200 mg twice a day and so far no side effects, no sedation, no nausea and no extrapyramidal symptoms. I will continue to work with the patient in group therapy, milieu therapy and adjust medications as needed. JOB# [id number]
[2017-07-05] MEDS: INSULIN ASPART SLIDING SCALE 100 UNITS/ML UNIT SUBQ SCH ×4 (06:43→21:21)
--- NOTE | 2017-07-05 10:34 | Progress Notes ---
DATE: 07/05/2017 SUBJECTIVE: The patient was seen in her room lying in the bed. The patient is asleep, but easily arousable. No shortness of breath. No signs of distress. Otherwise, the patient appears to be comfortable. OBJECTIVE: VITAL SIGNS: Temperature 98.3, heart rate 94, blood pressure 101/60, respirations of 18, 98% on room air. HEENT: Head is atraumatic and normocephalic. Eyes: Bilateral conjunctivae are clear. Bilateral pupils are equally round and reactive. NECK: Supple. No JVD. CARDIOVASCULAR: S1 and S2, without murmur. PULMONARY: Clear to auscultation. GASTROINTESTINAL: Soft and nontender without guarding. MUSCULOSKELETAL: No edema, no clubbing, no cyanosis noted. ASSESSMENT: 1. Psychosis. 2. Diabetes mellitus. 3. Anxiety. 4. Insomnia. PLAN: We will continue to keep the patient in inpatient Psychiatric Unit. We will follow up the patient's condition with the psychiatrist. Treatment plans were discussed the patient's nurse. Treatment plans were also discussed with Dr. Quinn. JOB# [id number]
--- NOTE | 2017-07-06 02:30 | Progress Notes ---
DATE: 07/05/2017 Case was discussed with staff of the patient, reviewed records. The patient reported that the voices are fading away. She is not hearing voices today. She seems to be better, though she stays in her bed. She is still unpredictable, impulsive. She is able to promise us that she would not harm herself at least while she is here. She tolerates the increasing of Seroquel, no side effects. She is also on ____ 300 mg at bedtime and Seroquel 200 mg twice a day with no side effects, no sedation, no nausea, and no extrapyramidal symptoms. We will continue to work with the patient in group therapy, milieu therapy, adjust the medication as needed. JOB# [id number]
[2017-07-06] MEDS: INSULIN ASPART SLIDING SCALE 100 UNITS/ML UNIT SUBQ SCH ×4 (06:41→20:22)
--- NOTE | 2017-07-06 11:24 | General Progress Note ---
Subjective - Review of Systems Service Date: 07/06/17 Events since last encounter: patient with no distress denies hearing voices today Objective - Results Recent Labs: Laboratory Last Values POC Glucose 87 MG/DL (70 - 105) 07/03/17 16:38 - Physical Exam Vitals and I&O: Vital Signs Temp 97.4 F 07/06/17 06:41 Pulse 82 07/06/17 06:41 Resp 20 07/06/17 06:41 BP 109/67 07/06/17 06:41 Pulse Ox 98 07/06/17 06:41 Intake & Output 07/05/17 07/06/17 07/06/17 18:59 06:59 18:59 Intake Total 2400 120 Balance 2400 120 Intake: Oral 2400 120 Other: # Voids 5 3 # Bowel Movements 0 Active Medications: Current Medications Clonazepam (Klonopin) 1 mg PO BID GEMA PRN Reason: Protocol Stop: 08/30/17 08:59 Last Admin: 07/06/17 09:19 Dose: 1 mg Clozapine (Clozaril) 300 mg PO HS GEMA PRN Reason: Protocol Stop: 08/29/17 20:59 Last Admin: 07/05/17 21:20 Dose: 300 mg Insulin Aspart (Novolog Insulin Sliding Scale) 3 - 12 units SUBQ ACHS GEMA PRN Reason: Protocol Stop: 08/29/17 20:59 Last Admin: 07/06/17 06:41 Dose: Not Given Lorazepam (Ativan) 1 mg PO Q4HR PRN; Protocol PRN Reason: Anxiety Stop: 08/29/17 17:14 Last Admin: 07/04/17 13:46 Dose: 1 mg Quetiapine Fumarate (Seroquel) 200 mg PO BID GEMA Stop: 09/03/17 08:59 Last Admin: 07/06/17 09:19 Dose: 200 mg Zolpidem Tartrate (Ambien) 5 mg PO HS GEMA Stop: 08/29/17 20:59 Last Admin: 07/05/17 21:20 Dose: 5 mg General: No acute distress HEENT: Atraumatic Neck: no Thyromegaly Cardiovascular: Regular rate, Normal S1, Normal S2 - Procedures Procedures: Procedures Procedure Code Date GROUP PSYCHOTHERAPY GZHZZZZ 02/23/17 Assessment/Plan - Problem List Patient Problems: All Active Problems Diabetes (Acute) E11.9 ELEVATED WBC WITH AGITATION (Acute) History of seizure (Acute) Z87.898 Psychosis (Acute) F29 - Assessment Assessment: psychosis dementia agitation seizure hyperlipidemia - Plan Plan: seizure precautions low fat diet continue current tx Nutritional Asmnt/Malnutr-PDOC - Dietary Evaluation Malnutrition Findings (Please click <Entered> for more info): Nutritional Asmnt/Malnutrition Start: 07/02/17 11: 43 Text: Status: Complete Freq: Document 07/02/17 11:43 GSUN (Rec: 07/02/17 11:56 GSUN [email or web address]) Nutritional Asmnt/Malnutrition Patient General Information Nutritional Screening Moderate Risk Screening Diagnosis Schizoaffective disorder Pertinent Medical Hx/Surgical Hx Seizure, dementia, hyperlipidemia, depression, psychosis, DM Subjective Information 67 year old female from SNF. Pt was awake but very anxious during visit, able to answer basic questions. Pt kept saying she can not drink or eat because the voices will kill her. RD explained importance of nutrition and assured pt that nursing staff will be around during meal time to provide safe environment. Pt appeared more calm and asked about lunch. Observed empty milk carton at bedside. Avg PO intake 100% of meals yesterday. SHAFT HEADMAN stated pt has good appetite. Pt is not suitable for DM education at this time. No muscle fat wasting noted. Current Diet Order/ Nutrition Support [id number] Pertinent Medications Novolog, Seroquel Pertinent Labs POC glucose 107-146 since adm Nutritional Hx/Data Height 1.63 m Height (Calculated Centimeters) 162.6 Current Weight (lbs) 72.847 kg Weight (Calculated Kilograms) 72.8 Weight (Calculated Grams) 75166.9 [place] Body Weight 120 Weight Status Overweight GI Symptoms Food Allergies No Skin Integrity/Comment: Serjio 17. Skin intact. Current %PO Good (75-100%) Estimated Nutritional Goals Calories/Kcals/Kg IBW 120lb/54.5kg Kcals Calculated 1363-1635kcal (26-30kcal/kg) Protein Calculated 55g (1g/kg) Fluid: ml 1363-1635ml (1ml/kcal) Nutritional Problem 1. Problem Problem Altered nutrition related laboratory values related to Etiology DM aeb Signs/Symptoms: H&P, elevated glucose, pt is on Novolog Intervention/Recommendation Comments 1. Continue with current diet order. Avg PO intake is adequate. 2. Nursing staff to provide supervision during meals and reassure pt of a safe meal environment. Pt mentioned the voice will kill her if pt eats /drinks. Expected Outcomes/Goals Expected Outcomes/Goals 1. PO intake continue to meet at least 75% of estimated nutritional needs.
--- NOTE | 2017-07-06 23:38 | Progress Notes ---
DATE: 07/06/2017 Case was discussed with staff of the patient. The patient said the voices are not as prominent. She reports though at times it did tell her in the past to harm herself, but she would not act on it. She is sleeping better, eating better. No side effects from the medication, no sedation, no nausea, no extrapyramidal symptoms. We will continue to work with the patient in group therapy, milieu therapy, adjust medication as needed. JOB# [id number]
[2017-07-07] MEDS: INSULIN ASPART SLIDING SCALE 100 UNITS/ML UNIT SUBQ SCH ×4 (06:33→20:29)
--- NOTE | 2017-07-07 12:59 | General Progress Note ---
Subjective - Review of Systems Events since last encounter: patient anxious admitted for hearing voices telling her to hurt herself no distress Objective - Results Recent Labs: Laboratory Last Values POC Glucose 78 MG/DL (70 - 105) 07/07/17 12:01 - Physical Exam Vitals and I&O: Vital Signs Temp 98.2 F 07/07/17 06:44 Pulse 89 07/07/17 06:44 Resp 20 07/07/17 06:44 BP 105/74 07/07/17 06:44 Pulse Ox 97 07/07/17 06:44 Intake & Output 07/06/17 07/07/17 07/07/17 18:59 06:59 18:59 Intake Total 60 Balance 60 Intake: Oral 60 Other: # Voids 3 # Bowel Movements 0 Active Medications: Current Medications Clonazepam (Klonopin) 1 mg PO BID GEMA PRN Reason: Protocol Stop: 08/30/17 08:59 Last Admin: 07/07/17 08:36 Dose: 1 mg Clozapine (Clozaril) 300 mg PO HS GEMA PRN Reason: Protocol Stop: 08/29/17 20:59 Last Admin: 07/06/17 20:22 Dose: 300 mg Insulin Aspart (Novolog Insulin Sliding Scale) 3 - 12 units SUBQ ACHS GEMA PRN Reason: Protocol Stop: 08/29/17 20:59 Last Admin: 07/07/17 06:33 Dose: Not Given Lorazepam (Ativan) 1 mg PO Q4HR PRN; Protocol PRN Reason: Anxiety Stop: 08/29/17 17:14 Last Admin: 07/04/17 13:46 Dose: 1 mg Quetiapine Fumarate (Seroquel) 200 mg PO BID GEMA Stop: 09/03/17 08:59 Last Admin: 07/07/17 08:36 Dose: 200 mg Zolpidem Tartrate (Ambien) 5 mg PO HS GEMA Stop: 08/29/17 20:59 Last Admin: 07/06/17 20:22 Dose: 5 mg General: No acute distress HEENT: Atraumatic Neck: no Thyromegaly Cardiovascular: Regular rate, Normal S1, Normal S2 - Procedures Procedures: Procedures Procedure Code Date GROUP PSYCHOTHERAPY GZHZZZZ 02/23/17 Assessment/Plan - Problem List Patient Problems: All Active Problems Diabetes (Acute) E11.9 ELEVATED WBC WITH AGITATION (Acute) History of seizure (Acute) Z87.898 Psychosis (Acute) F29 - Assessment Assessment: psychosis dementia agitation seizure hyperlipidemia - Plan Plan: seizure precautions low fat diet continue current tx Nutritional Asmnt/Malnutr-PDOC - Dietary Evaluation Malnutrition Findings (Please click <Entered> for more info): Nutritional Asmnt/Malnutrition Start: 07/02/17 11: 43 Text: Status: Complete Freq: Document 07/02/17 11:43 GSUN (Rec: 07/02/17 11:56 GSUN [email or web address]) Nutritional Asmnt/Malnutrition Patient General Information Nutritional Screening Moderate Risk Screening Diagnosis Schizoaffective disorder Pertinent Medical Hx/Surgical Hx Seizure, dementia, hyperlipidemia, depression, psychosis, DM Subjective Information 67 year old female from SNF. Pt was awake but very anxious during visit, able to answer basic questions. Pt kept saying she can not drink or eat because the voices will kill her. RD explained importance of nutrition and assured pt that nursing staff will be around during meal time to provide safe environment. Pt appeared more calm and asked about lunch. Observed empty milk carton at bedside. Avg PO intake 100% of meals yesterday. SIGNAL INSPECTOR stated pt has good appetite. Pt is not suitable for DM education at this time. No muscle fat wasting noted. Current Diet Order/ Nutrition Support [id number] Pertinent Medications Novolog, Seroquel Pertinent Labs POC glucose 107-146 since adm Nutritional Hx/Data Height 1.63 m Height (Calculated Centimeters) 162.6 Current Weight (lbs) 72.847 kg Weight (Calculated Kilograms) 72.8 Weight (Calculated Grams) 03325.9 [place] Body Weight 120 Weight Status Overweight GI Symptoms Food Allergies No Skin Integrity/Comment: Serjio 17. Skin intact. Current %PO Good (75-100%) Estimated Nutritional Goals Calories/Kcals/Kg IBW 120lb/54.5kg Kcals Calculated 1363-1635kcal (26-30kcal/kg) Protein Calculated 55g (1g/kg) Fluid: ml 1363-1635ml (1ml/kcal) Nutritional Problem 1. Problem Problem Altered nutrition related laboratory values related to Etiology DM aeb Signs/Symptoms: H&P, elevated glucose, pt is on Novolog Intervention/Recommendation Comments 1. Continue with current diet order. Avg PO intake is adequate. 2. Nursing staff to provide supervision during meals and reassure pt of a safe meal environment. Pt mentioned the voice will kill her if pt eats /drinks. Expected Outcomes/Goals Expected Outcomes/Goals 1. PO intake continue to meet at least 75% of estimated nutritional needs.
--- NOTE | 2017-07-08 02:03 | Progress Notes ---
DATE: 07/07/2017 Case was discussed with staff and patient. The patient was out of her bed today. She was in the dining room, feeding herself. She reports she is feeling better, sleeping better, and eating better. She denies any current intent to harm herself or anyone. Denies any auditory or visual hallucinations and reports that hallucinations are gone. She is not hearing them anymore, sleeping better, and eating better. No side effects with the medication, no sedation, no nausea. At this point, the patient seems to be starting to show progress in going to activities, no side effects to the medication, no sedation, no nausea, no extrapyramidal symptoms. Her prolactin level was within normal range. TSH, T4 and T3 was within normal range. We will continue with the patient in group therapy, milieu therapy, and adjust medication as needed. JOB# [id number]
[2017-07-08] MEDS: INSULIN ASPART SLIDING SCALE 100 UNITS/ML UNIT SUBQ SCH ×4 (06:50→21:11)
--- NOTE | 2017-07-08 15:24 | General Progress Note ---
Subjective - Review of Systems Events since last encounter: patient continues to feel anxious Objective - Results Recent Labs: Laboratory Last Values POC Glucose 101 MG/DL (70 - 105) 07/08/17 06:30 - Physical Exam Vitals and I&O: Vital Signs Temp 98.2 F 07/08/17 14:54 Pulse 96 07/08/17 14:54 Resp 20 07/08/17 14:54 BP 103/59 07/08/17 14:54 Pulse Ox 95 07/08/17 14:54 Intake & Output 07/07/17 07/08/17 07/08/17 18:59 06:59 18:59 Intake Total 1300 360 Balance 1300 360 Intake: Oral 1300 360 Other: # Voids 5 2 # Bowel Movements 1 0 Active Medications: Current Medications Clonazepam (Klonopin) 1 mg PO BID GEMA PRN Reason: Protocol Stop: 08/30/17 08:59 Last Admin: 07/08/17 08:43 Dose: 1 mg Clozapine (Clozaril) 300 mg PO HS GEMA PRN Reason: Protocol Stop: 08/29/17 20:59 Last Admin: 07/07/17 20:27 Dose: 300 mg Insulin Aspart (Novolog Insulin Sliding Scale) 3 - 12 units SUBQ ACHS GEMA PRN Reason: Protocol Stop: 08/29/17 20:59 Last Admin: 07/07/17 20:29 Dose: Not Given Quetiapine Fumarate (Seroquel) 200 mg PO BID GEMA Stop: 09/03/17 08:59 Last Admin: 07/08/17 08:44 Dose: 200 mg Zolpidem Tartrate (Ambien) 5 mg PO HS GEMA Stop: 08/29/17 20:59 Last Admin: 07/07/17 20:27 Dose: 5 mg General: No acute distress HEENT: Atraumatic Neck: no Thyromegaly Cardiovascular: Regular rate, Normal S1, Normal S2 - Procedures Procedures: Procedures Procedure Code Date GROUP PSYCHOTHERAPY GZHZZZZ 02/23/17 Assessment/Plan - Problem List Patient Problems: All Active Problems Diabetes (Acute) E11.9 ELEVATED WBC WITH AGITATION (Acute) History of seizure (Acute) Z87.898 Psychosis (Acute) F29 - Assessment Assessment: psychosis dementia agitation seizure hyperlipidemia - Plan Plan: seizure precautions low fat diet continue current tx Nutritional Asmnt/Malnutr-PDOC - Dietary Evaluation Malnutrition Findings (Please click <Entered> for more info): Nutritional Asmnt/Malnutrition Start: 07/02/17 11: 43 Text: Status: Complete Freq: Document 07/02/17 11:43 YUE (Rec: 07/02/17 11:56 [id number] [id number]) Nutritional Asmnt/Malnutrition Patient General Information Nutritional Screening Moderate Risk Screening Diagnosis Schizoaffective disorder Pertinent Medical Hx/Surgical Hx Seizure, dementia, hyperlipidemia, depression, psychosis, DM Subjective Information 67 year old female from SNF. Pt was awake but very anxious during visit, able to answer basic questions. Pt kept saying she can not drink or eat because the voices will kill her. RD explained importance of nutrition and assured pt that nursing staff will be around during meal time to provide safe environment. Pt appeared more calm and asked about lunch. Observed empty milk carton at bedside. Avg PO intake 100% of meals yesterday. RANGELAND MANAGEMENT SPECIALIST stated pt has good appetite. Pt is not suitable for DM education at this time. No muscle fat wasting noted. Current Diet Order/ Nutrition Support [id number] Pertinent Medications Novolog, Seroquel Pertinent Labs POC glucose 107-146 since adm Nutritional Hx/Data Height 1.63 m Height (Calculated Centimeters) 162.6 Current Weight (lbs) 72.847 kg Weight (Calculated Kilograms) 72.8 Weight (Calculated Grams) 44219.9 [place] Body Weight 120 Weight Status Overweight GI Symptoms Food Allergies No Skin Integrity/Comment: Serjio 17. Skin intact. Current %PO Good (75-100%) Estimated Nutritional Goals Calories/Kcals/Kg IBW 120lb/54.5kg Kcals Calculated 1363-1635kcal (26-30kcal/kg) Protein Calculated 55g (1g/kg) Fluid: ml 1363-1635ml (1ml/kcal) Nutritional Problem 1. Problem Problem Altered nutrition related laboratory values related to Etiology DM aeb Signs/Symptoms: H&P, elevated glucose, pt is on Novolog Intervention/Recommendation Comments 1. Continue with current diet order. Avg PO intake is adequate. 2. Nursing staff to provide supervision during meals and reassure pt of a safe meal environment. Pt mentioned the voice will kill her if pt eats /drinks. Expected Outcomes/Goals Expected Outcomes/Goals 1. PO intake continue to meet at least 75% of estimated nutritional needs.
--- NOTE | 2017-07-09 00:32 | Progress Notes ---
DATE: 07/08/2017 Case was discussed with staff of the patient, reviewed records. The patient seems to be showing progress. She is no longer hearing voices telling her to harm herself. She is out of the room more, interacting more with other patients and staff. She seems to be showing progress, sleeping better and eating better. No side effects with the medication, no sedation, no nausea, no extrapyramidal symptoms. Tolerates the increase in Seroquel and she seems to be showing a lot of progress. At this point, we are working on discharge plan. We will continue to work with the patient in group therapy, milieu therapy, and adjust medications as needed. JOB# [id number]
[2017-07-09] MEDS: INSULIN ASPART SLIDING SCALE 100 UNITS/ML UNIT SUBQ SCH ×4 (06:41→21:01)
--- NOTE | 2017-07-09 15:03 | General Progress Note ---
Subjective - Review of Systems Events since last encounter: patient continues to be anxious but doing better Objective - Results Recent Labs: Laboratory Last Values POC Glucose 101 MG/DL (70 - 105) 07/09/17 06:17 - Physical Exam Vitals and I&O: Vital Signs Temp 97.9 F 07/09/17 06:37 Pulse 85 07/09/17 06:37 Resp 19 07/09/17 08:00 BP 107/79 07/09/17 06:37 Pulse Ox 97 07/09/17 06:37 Intake & Output 07/08/17 07/09/17 07/09/17 18:59 06:59 18:59 Intake Total 900 120 Balance 900 120 Intake: Oral 900 120 Other: # Voids 3 3 # Bowel Movements 1 0 Active Medications: Current Medications Clonazepam (Klonopin) 1 mg PO BID GEMA PRN Reason: Protocol Stop: 08/30/17 08:59 Last Admin: 07/09/17 08:56 Dose: 1 mg Clozapine (Clozaril) 300 mg PO HS GEMA PRN Reason: Protocol Stop: 08/29/17 20:59 Last Admin: 07/08/17 21:09 Dose: 300 mg Insulin Aspart (Novolog Insulin Sliding Scale) 3 - 12 units SUBQ ACHS GEMA PRN Reason: Protocol Stop: 08/29/17 20:59 Last Admin: 07/09/17 12:21 Dose: Not Given Quetiapine Fumarate (Seroquel) 200 mg PO BID GEMA Stop: 09/03/17 08:59 Last Admin: 07/09/17 08:56 Dose: 200 mg Zolpidem Tartrate (Ambien) 5 mg PO HS GEMA Stop: 08/29/17 20:59 Last Admin: 07/08/17 21:09 Dose: 5 mg General: No acute distress HEENT: Atraumatic Neck: no Thyromegaly Cardiovascular: Regular rate, Normal S1, Normal S2 - Procedures Procedures: Procedures Procedure Code Date GROUP PSYCHOTHERAPY GZHZZZZ 02/23/17 Assessment/Plan - Problem List Patient Problems: All Active Problems Diabetes (Acute) E11.9 ELEVATED WBC WITH AGITATION (Acute) History of seizure (Acute) Z87.898 Psychosis (Acute) F29 - Assessment Assessment: psychosis dementia agitation seizure hyperlipidemia - Plan Plan: seizure precautions low fat diet continue current tx Nutritional Asmnt/Malnutr-PDOC - Dietary Evaluation Malnutrition Findings (Please click <Entered> for more info): Nutritional Asmnt/Malnutrition Start: 07/02/17 11: 43 Text: Status: Complete Freq: Document 07/02/17 11:43 YUE (Rec: 07/02/17 11:56 [id number] [id number]) Nutritional Asmnt/Malnutrition Patient General Information Nutritional Screening Moderate Risk Screening Diagnosis Schizoaffective disorder Pertinent Medical Hx/Surgical Hx Seizure, dementia, hyperlipidemia, depression, psychosis, DM Subjective Information 67 year old female from SNF. Pt was awake but very anxious during visit, able to answer basic questions. Pt kept saying she can not drink or eat because the voices will kill her. RD explained importance of nutrition and assured pt that nursing staff will be around during meal time to provide safe environment. Pt appeared more calm and asked about lunch. Observed empty milk carton at bedside. Avg PO intake 100% of meals yesterday. APPEALS REPRESENTATIVE stated pt has good appetite. Pt is not suitable for DM education at this time. No muscle fat wasting noted. Current Diet Order/ Nutrition Support [id number] Pertinent Medications Novolog, Seroquel Pertinent Labs POC glucose 107-146 since adm Nutritional Hx/Data Height 1.63 m Height (Calculated Centimeters) 162.6 Current Weight (lbs) 72.847 kg Weight (Calculated Kilograms) 72.8 Weight (Calculated Grams) 09231.9 [place] Body Weight 120 Weight Status Overweight GI Symptoms Food Allergies No Skin Integrity/Comment: Serjio 17. Skin intact. Current %PO Good (75-100%) Estimated Nutritional Goals Calories/Kcals/Kg IBW 120lb/54.5kg Kcals Calculated 1363-1635kcal (26-30kcal/kg) Protein Calculated 55g (1g/kg) Fluid: ml 1363-1635ml (1ml/kcal) Nutritional Problem 1. Problem Problem Altered nutrition related laboratory values related to Etiology DM aeb Signs/Symptoms: H&P, elevated glucose, pt is on Novolog Intervention/Recommendation Comments 1. Continue with current diet order. Avg PO intake is adequate. 2. Nursing staff to provide supervision during meals and reassure pt of a safe meal environment. Pt mentioned the voice will kill her if pt eats /drinks. Expected Outcomes/Goals Expected Outcomes/Goals 1. PO intake continue to meet at least 75% of estimated nutritional needs.
[2017-07-10] MEDS: INSULIN ASPART SLIDING SCALE 100 UNITS/ML UNIT SUBQ SCH ×4 (06:42→21:10)
--- NOTE | 2017-07-10 09:26 | General Progress Note ---
Subjective - Review of Systems Events since last encounter: patient with no acute distress anxious Objective - Results Recent Labs: Laboratory Last Values POC Glucose 104 MG/DL (70 - 105) 07/10/17 05:57 - Physical Exam Vitals and I&O: Vital Signs Temp 98.4 F 07/10/17 06:19 Pulse 88 07/10/17 06:19 Resp 19 07/10/17 06:19 BP 94/64 07/10/17 06:19 Pulse Ox 98 07/10/17 06:19 Intake & Output 07/09/17 07/10/17 07/10/17 18:59 06:59 18:59 Intake Total 1200 120 Balance 1200 120 Intake: Oral 1200 120 Other: # Voids 3 # Bowel Movements 1 0 Active Medications: Current Medications Clonazepam (Klonopin) 1 mg PO BID GEMA PRN Reason: Protocol Stop: 08/30/17 08:59 Last Admin: 07/10/17 08:40 Dose: 1 mg Clozapine (Clozaril) 300 mg PO HS GEMA PRN Reason: Protocol Stop: 08/29/17 20:59 Last Admin: 07/09/17 21:00 Dose: 300 mg Insulin Aspart (Novolog Insulin Sliding Scale) 3 - 12 units SUBQ ACHS GEMA PRN Reason: Protocol Stop: 08/29/17 20:59 Last Admin: 07/10/17 06:42 Dose: Not Given Lorazepam (Ativan) 1 mg PO Q4HR PRN; Protocol PRN Reason: Anxiety Stop: 08/29/17 17:14 Last Admin: 07/04/17 13:46 Dose: 1 mg Quetiapine Fumarate (Seroquel) 200 mg PO BID GEMA Stop: 09/03/17 08:59 Last Admin: 07/10/17 08:40 Dose: 200 mg Zolpidem Tartrate (Ambien) 5 mg PO HS GEMA Stop: 08/29/17 20:59 Last Admin: 07/09/17 21:00 Dose: 5 mg General: No acute distress HEENT: Atraumatic Neck: no Thyromegaly Cardiovascular: Regular rate, Normal S1, Normal S2 - Procedures Procedures: Procedures Procedure Code Date GROUP PSYCHOTHERAPY GZHZZZZ 02/23/17 Assessment/Plan - Problem List Patient Problems: All Active Problems Diabetes (Acute) E11.9 ELEVATED WBC WITH AGITATION (Acute) History of seizure (Acute) Z87.898 Psychosis (Acute) F29 - Assessment Assessment: psychosis dementia agitation seizure hyperlipidemia - Plan Plan: seizure precautions low fat diet continue current tx Nutritional Asmnt/Malnutr-PDOC - Dietary Evaluation Malnutrition Findings (Please click <Entered> for more info): Nutritional Asmnt/Malnutrition Start: 07/02/17 11: 43 Text: Status: Complete Freq: Document 07/02/17 11:43 GSUN (Rec: 07/02/17 11:56 GSUN [id number]) Nutritional Asmnt/Malnutrition Patient General Information Nutritional Screening Moderate Risk Screening Diagnosis Schizoaffective disorder Pertinent Medical Hx/Surgical Hx Seizure, dementia, hyperlipidemia, depression, psychosis, DM Subjective Information 67 year old female from SNF. Pt was awake but very anxious during visit, able to answer basic questions. Pt kept saying she can not drink or eat because the voices will kill her. RD explained importance of nutrition and assured pt that nursing staff will be around during meal time to provide safe environment. Pt appeared more calm and asked about lunch. Observed empty milk carton at bedside. Avg PO intake 100% of meals yesterday. CLIENT RELATIONS REPRESENTATIVE stated pt has good appetite. Pt is not suitable for DM education at this time. No muscle fat wasting noted. Current Diet Order/ Nutrition Support [id number] Pertinent Medications Novolog, Seroquel Pertinent Labs POC glucose 107-146 since adm Nutritional Hx/Data Height 1.63 m Height (Calculated Centimeters) 162.6 Current Weight (lbs) 72.847 kg Weight (Calculated Kilograms) 72.8 Weight (Calculated Grams) 71509.9 [place] Body Weight 120 Weight Status Overweight GI Symptoms Food Allergies No Skin Integrity/Comment: Serjio 17. Skin intact. Current %PO Good (75-100%) Estimated Nutritional Goals Calories/Kcals/Kg IBW 120lb/54.5kg Kcals Calculated 1363-1635kcal (26-30kcal/kg) Protein Calculated 55g (1g/kg) Fluid: ml 1363-1635ml (1ml/kcal) Nutritional Problem 1. Problem Problem Altered nutrition related laboratory values related to Etiology DM aeb Signs/Symptoms: H&P, elevated glucose, pt is on Novolog Intervention/Recommendation Comments 1. Continue with current diet order. Avg PO intake is adequate. 2. Nursing staff to provide supervision during meals and reassure pt of a safe meal environment. Pt mentioned the voice will kill her if pt eats /drinks. Expected Outcomes/Goals Expected Outcomes/Goals 1. PO intake continue to meet at least 75% of estimated nutritional needs.
--- NOTE | 2017-07-11 02:16 | Progress Notes ---
DATE: 07/10/2017 Case was discussed with staff of the patient. The staff reported, the patient has been isolating suspicious; however, when I talked to her, she was very appropriate. She is sleeping better, eating better. She denies that she is hearing voices at all. She denies any current intent to harm herself or anybody. She is compliant with the medication with no side effects, no sedation, no nausea, no extrapyramidal symptoms. I will be increasing the Seroquel to help improve her suspicious behavior and we will continue to work with the patient in group therapy, milieu therapy, and adjust the medication as needed. JOB# [id number]
[2017-07-11] MEDS: INSULIN ASPART SLIDING SCALE 100 UNITS/ML UNIT SUBQ SCH ×4 (06:45→20:41)
--- NOTE | 2017-07-11 08:50 | General Progress Note ---
Subjective - Review of Systems Events since last encounter: patient awake alert no distress improving Objective - Results Recent Labs: Laboratory Last Values POC Glucose 116 MG/DL (70 - 105) H 07/11/17 06:39 - Physical Exam Vitals and I&O: Vital Signs Temp 97.8 F 07/11/17 06:36 Pulse 85 07/11/17 06:36 Resp 18 07/11/17 06:36 BP 108/61 07/11/17 06:36 Pulse Ox 96 07/11/17 06:36 Intake & Output 07/10/17 07/11/17 07/11/17 18:59 06:59 18:59 Intake Total 120 Balance 120 Intake: Oral 120 Other: # Voids 3 Active Medications: Current Medications Clonazepam (Klonopin) 1 mg PO BID GEMA PRN Reason: Protocol Stop: 08/30/17 08:59 Last Admin: 07/10/17 16:19 Dose: 1 mg Clozapine (Clozaril) 300 mg PO HS GEMA PRN Reason: Protocol Stop: 08/29/17 20:59 Last Admin: 07/10/17 21:10 Dose: 300 mg Insulin Aspart (Novolog Insulin Sliding Scale) 3 - 12 units SUBQ ACHS GEMA PRN Reason: Protocol Stop: 08/29/17 20:59 Last Admin: 07/11/17 06:45 Dose: Not Given Lorazepam (Ativan) 1 mg PO Q4HR PRN; Protocol PRN Reason: Anxiety Stop: 08/29/17 17:14 Last Admin: 07/04/17 13:46 Dose: 1 mg Quetiapine Fumarate 200 mg/ (Quetiapine Fumarate 50 mg) 250 mg PO BID GEMA Stop: 09/08/17 16:59 Last Admin: 07/10/17 16:22 Dose: 250 mg Zolpidem Tartrate (Ambien) 5 mg PO HS GEMA Stop: 08/29/17 20:59 Last Admin: 07/10/17 21:10 Dose: 5 mg General: No acute distress HEENT: Atraumatic Neck: no Thyromegaly Cardiovascular: Regular rate, Normal S1, Normal S2 - Procedures Procedures: Procedures Procedure Code Date GROUP PSYCHOTHERAPY GZHZZZZ 02/23/17 Assessment/Plan - Problem List Patient Problems: All Active Problems Diabetes (Acute) E11.9 ELEVATED WBC WITH AGITATION (Acute) History of seizure (Acute) Z87.898 Psychosis (Acute) F29 - Assessment Assessment: psychosis dementia agitation seizure hyperlipidemia - Plan Plan: seizure precautions low fat diet continue current tx Nutritional Asmnt/Malnutr-PDOC - Dietary Evaluation Malnutrition Findings (Please click <Entered> for more info): Nutritional Asmnt/Malnutrition Start: 07/02/17 11: 43 Text: Status: Complete Freq: Document 07/02/17 11:43 GSUN (Rec: 07/02/17 11:56 GSUN [email or web address]) Nutritional Asmnt/Malnutrition Patient General Information Nutritional Screening Moderate Risk Screening Diagnosis Schizoaffective disorder Pertinent Medical Hx/Surgical Hx Seizure, dementia, hyperlipidemia, depression, psychosis, DM Subjective Information 67 year old female from SNF. Pt was awake but very anxious during visit, able to answer basic questions. Pt kept saying she can not drink or eat because the voices will kill her. RD explained importance of nutrition and assured pt that nursing staff will be around during meal time to provide safe environment. Pt appeared more calm and asked about lunch. Observed empty milk carton at bedside. Avg PO intake 100% of meals yesterday. OPERATING ROOM REGISTERED NURSE stated pt has good appetite. Pt is not suitable for DM education at this time. No muscle fat wasting noted. Current Diet Order/ Nutrition Support [id number] Pertinent Medications Novolog, Seroquel Pertinent Labs POC glucose 107-146 since adm Nutritional Hx/Data Height 1.63 m Height (Calculated Centimeters) 162.6 Current Weight (lbs) 72.847 kg Weight (Calculated Kilograms) 72.8 Weight (Calculated Grams) 77651.9 [place] Body Weight 120 Weight Status Overweight GI Symptoms Food Allergies No Skin Integrity/Comment: Serjio 17. Skin intact. Current %PO Good (75-100%) Estimated Nutritional Goals Calories/Kcals/Kg IBW 120lb/54.5kg Kcals Calculated 1363-1635kcal (26-30kcal/kg) Protein Calculated 55g (1g/kg) Fluid: ml 1363-1635ml (1ml/kcal) Nutritional Problem 1. Problem Problem Altered nutrition related laboratory values related to Etiology DM aeb Signs/Symptoms: H&P, elevated glucose, pt is on Novolog Intervention/Recommendation Comments 1. Continue with current diet order. Avg PO intake is adequate. 2. Nursing staff to provide supervision during meals and reassure pt of a safe meal environment. Pt mentioned the voice will kill her if pt eats /drinks. Expected Outcomes/Goals Expected Outcomes/Goals 1. PO intake continue to meet at least 75% of estimated nutritional needs.
--- NOTE | 2017-07-12 03:10 | Progress Notes ---
DATE: 07/11/[address] Meneses. Case was discussed with staff of the patient, reviewed records. The patient continues to isolate in bed. She reports she has been a little bit sleepy; however, she is sleeping well. She is eating well. She is able to socialize more. She denies that she is hearing voices telling her to harm himself anymore. However, she still reported as being suspicious by the staff what she denied to me; however, by watching her to make sure she is stable prior to discharge and will continue the patient in group therapy, milieu therapy, adjust medication as needed. JOB# [id number]
[2017-07-12] MEDS: INSULIN ASPART SLIDING SCALE 100 UNITS/ML UNIT SUBQ SCH ×4 (06:52→20:35)
--- NOTE | 2017-07-12 08:57 | Progress Notes ---
DATE: 07/12/2017 SUBJECTIVE: The patient was seen, chart reviewed, discussed with staff. The patient is currently in the hospital, attesting to voices, worsening voices, command voices telling her to eat feces, history of multiple hospitalizations. The patient is asking for more medication. Dr. Oleary has been seeing the patient over the past few days since her admission and is noting that she remains isolative, suspicious. On [id number], the patient is still attesting to voices and is despairing with psychological distress . ASSESSMENT: The patient remains symptomatic, currently on Clozaril, still with voices, but noting that voices are dissipating. PLAN: We will continue to monitor. Given recent dose adjustments by Dr. Oleary, we will continue at current dose. JOB# [id number]
[2017-07-12] MEDS ORDERED: Magnesium Hydroxide (MOM) 30 mL UDC PO PRN (16:49)
--- NOTE | 2017-07-12 20:17 | Progress Notes ---
DATE: 07/12/2017 SUBJECTIVE: The patient was seen in her room, lying in the bed. The patient is asleep, but is arousable. The patient appears to be comfortable. No shortness of breath. No signs of distress. OBJECTIVE: VITAL SIGNS: Temperature 98, heart rate 75, respirations of 18, saturation is 97, blood pressure 113/76. HEENT: Head is atraumatic and normocephalic. Eyes: Bilateral conjunctivae are clear. Bilateral pupils are equally round and reactive. NECK: Supple. No JVD. CARDIOVASCULAR: S1 and S2, without murmur. PULMONARY: Clear to auscultation. GASTROINTESTINAL: Soft and nontender without guarding. Positive bowel sounds. MUSCULOSKELETAL: No edema. No clubbing. No cyanosis noted. ASSESSMENT: 1.Psychosis. 2.Insomnia. 3.Anxiety. 4.Diabetes mellitus. PLAN: We will continue to keep the patient inpatient in Psychiatric Unit. We will follow up the patient's condition with the psychiatrist. Treatment plans were discussed with Dr. Quinn. Treatment plans were discussed with patient's nurse. JOB# [id number]
[2017-07-13] MEDS: INSULIN ASPART SLIDING SCALE 100 UNITS/ML UNIT SUBQ SCH ×3 (07:09→20:38)
--- NOTE | 2017-07-13 10:14 | Progress Notes ---
DATE: 07/13/2017 SUBJECTIVE: The patient was seen, chart reviewed, discussed with staff. The patient is currently in the hospital, voices __ongoing___, psychotic, patient not amenable to interview with me this morning, states she is upset, noted to be irritable, still endorsing voices, still noting that the voices are ongoing; however, she is noting some improvements stating that the voices are dissipating and decreasing. She is currently on Seroquel ASSESSMENT: The patient remains symptomatic, still psychotic, still with voices, suicidal ideations dissipating. She seems to be tolerating the medication well. PLAN: We will cross-taper medications, lower Seroquel today. We will increase Clozaril to 325 mg at nighttime. The patient does seem to be responding well to current treatment regimen as set forth by Dr. Meneses and Dr. Oleary. [facility]# [id number] MARSHA
--- NOTE | 2017-07-13 12:16 | General Progress Note ---
Subjective - Review of Systems Events since last encounter: patient awake alert no distress Objective - Results Recent Labs: Laboratory Last Values POC Glucose 63 MG/DL (70 - 105) L 07/13/17 11:56 - Physical Exam Vitals and I&O: Vital Signs Temp 98.6 F 07/12/17 20:17 Pulse 81 07/13/17 11:27 Resp 19 07/13/17 11:27 BP 112/68 07/12/17 20:17 Pulse Ox 99 07/12/17 20:17 Intake & Output 07/12/17 07/13/17 07/13/17 18:59 06:59 18:59 Intake Total 1200 240 Balance 1200 240 Intake: Oral 1200 240 Other: # Voids 4 1 # Bowel Movements 1 Active Medications: Current Medications Clonazepam (Klonopin) 1 mg PO BID GEMA PRN Reason: Protocol Stop: 08/30/17 08:59 Last Admin: 07/13/17 09:16 Dose: 1 mg Clozapine 300 mg/ Clozapine 25 (mg) 325 mg PO HS [facility] Stop: 09/11/17 20:59 Insulin Aspart (Novolog Insulin Sliding Scale) 3 - 12 units SUBQ ACHS GEMA PRN Reason: Protocol Stop: 08/29/17 20:59 Last Admin: 07/13/17 12:11 Dose: Not Given Lorazepam (Ativan) 1 mg PO Q4HR PRN; Protocol PRN Reason: Anxiety Stop: 08/29/17 17:14 Last Admin: 07/04/17 13:46 Dose: 1 mg Magnesium Hydroxide (Milk Of Magnesia) 30 ml PO DAILY PRN PRN Reason: Constipation Stop: 09/10/17 16:48 Quetiapine Fumarate 200 mg/ (Quetiapine Fumarate 25 mg) 225 mg PO BID [facility] Stop: 09/11/17 08:59 Last Admin: 07/13/17 09:16 Dose: 225 mg Zolpidem Tartrate (Ambien) 5 mg PO HS [facility] Stop: 08/29/17 20:59 Last Admin: 07/12/17 20:58 Dose: 5 mg General: No acute distress HEENT: Atraumatic Neck: no Thyromegaly Cardiovascular: Regular rate, Normal S1, Normal S2 - Procedures Procedures: Procedures Procedure Code Date GROUP PSYCHOTHERAPY GZHZZZZ 02/23/17 Assessment/Plan - Problem List Patient Problems: All Active Problems Diabetes (Acute) E11.9 ELEVATED WBC WITH AGITATION (Acute) History of seizure (Acute) Z87.898 Psychosis (Acute) F29 - Assessment Assessment: psychosis dementia agitation seizure hyperlipidemia - Plan Plan: seizure precautions low fat diet continue current tx Nutritional Asmnt/Malnutr-PDOC - Dietary Evaluation Malnutrition Findings (Please click <Entered> for more info): Nutritional Asmnt/Malnutrition Start: 07/02/17 11: 43 Text: Status: Complete Freq: Document 07/02/17 11:43 GSUN (Rec: 07/02/17 11:56 GSUN [id number]) Nutritional Asmnt/Malnutrition Patient General Information Nutritional Screening Moderate Risk Screening Diagnosis Schizoaffective disorder Pertinent Medical Hx/Surgical Hx Seizure, dementia, hyperlipidemia, depression, psychosis, DM Subjective Information 67 year old female from SNF. Pt was awake but very anxious during visit, able to answer basic questions. Pt kept saying she can not drink or eat because the voices will kill her. RD explained importance of nutrition and assured pt that nursing staff will be around during meal time to provide safe environment. Pt appeared more calm and asked about lunch. Observed empty milk carton at bedside. Avg PO intake 100% of meals yesterday. [employer] stated pt has good appetite. Pt is not suitable for DM education at this time. No muscle fat wasting noted. Current Diet Order/ Nutrition Support [id number] Pertinent Medications Novolog, Seroquel Pertinent Labs POC glucose 107-146 since adm Nutritional Hx/Data Height 1.63 m Height (Calculated Centimeters) 162.6 Current Weight (lbs) 72.847 kg Weight (Calculated Kilograms) 72.8 Weight (Calculated Grams) 17836.9 [place] Body Weight 120 Weight Status Overweight GI Symptoms Food Allergies No Skin Integrity/Comment: Serjio 17. Skin intact. Current %PO Good (75-100%) Estimated Nutritional Goals Calories/Kcals/Kg IBW 120lb/54.5kg Kcals Calculated 1363-1635kcal (26-30kcal/kg) Protein Calculated 55g (1g/kg) Fluid: ml 1363-1635ml (1ml/kcal) Nutritional Problem 1. Problem Problem Altered nutrition related laboratory values related to Etiology DM aeb Signs/Symptoms: H&P, elevated glucose, pt is on Novolog Intervention/Recommendation Comments 1. Continue with current diet order. Avg PO intake is adequate. 2. Nursing staff to provide supervision during meals and reassure pt of a safe meal environment. Pt mentioned the voice will kill her if pt eats /drinks. Expected Outcomes/Goals Expected Outcomes/Goals 1. PO intake continue to meet at least 75% of estimated nutritional needs.
[2017-07-13] MEDS: cloZAPine 300 MG, cloZAPine 25 MG PO SCH (20:38)
[2017-07-14] MEDS: INSULIN ASPART SLIDING SCALE 100 UNITS/ML UNIT SUBQ SCH ×4 (06:12→20:12)
--- NOTE | 2017-07-14 08:27 | General Progress Note ---
Subjective - Review of Systems Events since last encounter: patient awake alert no acute distress Objective - Results Recent Labs: Laboratory Last Values POC Glucose 98 MG/DL (70 - 105) 07/14/17 05:46 - Physical Exam Vitals and I&O: Vital Signs Temp 98.3 F 07/14/17 06:25 Pulse 82 07/14/17 06:25 Resp 20 07/14/17 06:25 BP 102/71 07/14/17 06:25 Pulse Ox 97 07/14/17 06:25 Intake & Output 07/13/17 07/14/17 07/14/17 18:59 06:59 18:59 Intake Total 1200 240 Balance 1200 240 Intake: Oral 1200 240 Other: # Voids 4 2 # Bowel Movements 1 0 Active Medications: Current Medications Clonazepam (Klonopin) 1 mg PO BID GEMA PRN Reason: Protocol Stop: 08/30/17 08:59 Last Admin: 07/13/17 16:30 Dose: 1 mg Clozapine 300 mg/ Clozapine 25 (mg) 325 mg PO HS GEMA Stop: 09/11/17 20:59 Last Admin: 07/13/17 20:38 Dose: 325 mg Insulin Aspart (Novolog Insulin Sliding Scale) 3 - 12 units SUBQ ACHS GEMA PRN Reason: Protocol Stop: 08/29/17 20:59 Last Admin: 07/13/17 20:38 Dose: Not Given Lorazepam (Ativan) 1 mg PO Q4HR PRN; Protocol PRN Reason: Anxiety Stop: 08/29/17 17:14 Last Admin: 07/04/17 13:46 Dose: 1 mg Magnesium Hydroxide (Milk Of Magnesia) 30 ml PO DAILY PRN PRN Reason: Constipation Stop: 09/10/17 16:48 Last Admin: 07/13/17 16:34 Dose: 30 ml Quetiapine Fumarate 200 mg/ (Quetiapine Fumarate 25 mg) 225 mg PO BID GEMA Stop: 09/11/17 08:59 Last Admin: 07/13/17 16:30 Dose: 225 mg Zolpidem Tartrate (Ambien) 5 mg PO HS GEMA Stop: 08/29/17 20:59 Last Admin: 07/13/17 20:38 Dose: 5 mg General: No acute distress HEENT: Atraumatic Neck: no Thyromegaly Cardiovascular: Regular rate, Normal S1, Normal S2 - Procedures Procedures: Procedures Procedure Code Date GROUP PSYCHOTHERAPY GZHZZZZ 02/23/17 Assessment/Plan - Problem List Patient Problems: All Active Problems Diabetes (Acute) E11.9 ELEVATED WBC WITH AGITATION (Acute) History of seizure (Acute) Z87.898 Psychosis (Acute) F29 - Assessment Assessment: psychosis dementia agitation seizure hyperlipidemia - Plan Plan: seizure precautions low fat diet continue current tx Nutritional Asmnt/Malnutr-PDOC - Dietary Evaluation Malnutrition Findings (Please click <Entered> for more info): Nutritional Asmnt/Malnutrition Start: 07/02/17 11: 43 Text: Status: Complete Freq: Document 07/02/17 11:43 GSUN (Rec: 07/02/17 11:56 GSUN [email or web address]) Nutritional Asmnt/Malnutrition Patient General Information Nutritional Screening Moderate Risk Screening Diagnosis Schizoaffective disorder Pertinent Medical Hx/Surgical Hx Seizure, dementia, hyperlipidemia, depression, psychosis, DM Subjective Information 67 year old female from SNF. Pt was awake but very anxious during visit, able to answer basic questions. Pt kept saying she can not drink or eat because the voices will kill her. RD explained importance of nutrition and assured pt that nursing staff will be around during meal time to provide safe environment. Pt appeared more calm and asked about lunch. Observed empty milk carton at bedside. Avg PO intake 100% of meals yesterday. AUDIOLOGY ASSISTANT stated pt has good appetite. Pt is not suitable for DM education at this time. No muscle fat wasting noted. Current Diet Order/ Nutrition Support [id number] Pertinent Medications Novolog, Seroquel Pertinent Labs POC glucose 107-146 since adm Nutritional Hx/Data Height 1.63 m Height (Calculated Centimeters) 162.6 Current Weight (lbs) 72.847 kg Weight (Calculated Kilograms) 72.8 Weight (Calculated Grams) 77957.9 [place] Body Weight 120 Weight Status Overweight GI Symptoms Food Allergies No Skin Integrity/Comment: Serjio 17. Skin intact. Current %PO Good (75-100%) Estimated Nutritional Goals Calories/Kcals/Kg IBW 120lb/54.5kg Kcals Calculated 1363-1635kcal (26-30kcal/kg) Protein Calculated 55g (1g/kg) Fluid: ml 1363-1635ml (1ml/kcal) Nutritional Problem 1. Problem Problem Altered nutrition related laboratory values related to Etiology DM aeb Signs/Symptoms: H&P, elevated glucose, pt is on Novolog Intervention/Recommendation Comments 1. Continue with current diet order. Avg PO intake is adequate. 2. Nursing staff to provide supervision during meals and reassure pt of a safe meal environment. Pt mentioned the voice will kill her if pt eats /drinks. Expected Outcomes/Goals Expected Outcomes/Goals 1. PO intake continue to meet at least 75% of estimated nutritional needs.
--- NOTE | 2017-07-14 14:29 | Progress Notes ---
DATE: 07/14/[address] Meneses. SUBJECTIVE: The patient was seen and evaluated. The patient's chart reviewed. Today nursing staff reporting the patient although being med compliant, she has been very intrusive, very guarded, mostly in her room isolating. On [id number] evaluation, the patient observed to be still disorganized, guarded, minimizing, withdrawn and disengaged. MENTAL STATUS EXAMINATION: Still observed to be disorganized, disengaged, poor insight, judgment and impulse control. ASSESSMENT AND PLAN: The patient is a 67-year-old female with a history of chronic paranoid schizophrenia who is tolerating recent increase of ____ to 325 mg p.o. at bedtime and also Klonopin was augmented in the current regimen to target the patient's severe anxiety. On top of the ____, she is also on Seroquel, a total ____, is unclear which medication is being cross titrated at this time. We will allow the primary psychiatrist treatment plan to continue ____. She is observed to not have any side effects, no over sedation. No complications. We will continue monitoring and evaluating for any cardiac or abnormalities or side effects. JOB# [id number]
[2017-07-14] MEDS: cloZAPine 300 MG, cloZAPine 25 MG PO SCH (20:13)
[2017-07-15] MEDS: INSULIN ASPART SLIDING SCALE 100 UNITS/ML UNIT SUBQ SCH ×3 (06:34→18:14)
--- NOTE | 2017-07-15 09:52 | General Progress Note ---
Subjective - Review of Systems Service Date: 07/15/17 Subjective: awake, alert, nad Objective - Results Recent Labs: Laboratory Last Values POC Glucose 101 MG/DL (70 - 105) 07/15/17 05:52 - Physical Exam Vitals and I&O: Vital Signs Temp 98.4 F 07/15/17 06:32 Pulse 97 07/15/17 06:32 Resp 18 07/15/17 06:32 BP 95/58 07/15/17 06:32 Pulse Ox 98 07/15/17 06:32 Intake & Output 07/14/17 07/15/17 07/15/17 18:59 06:59 18:59 Intake Total 2800 180 Balance 2800 180 Intake: Oral 2800 180 Other: # Voids 5 2 # Bowel Movements 0 0 Active Medications: Current Medications Clonazepam (Klonopin) 1 mg PO BID GEMA PRN Reason: Protocol Stop: 08/30/17 08:59 Last Admin: 07/15/17 08:30 Dose: 1 mg Clozapine 300 mg/ Clozapine 25 (mg) 325 mg PO HS [facility] Stop: 09/11/17 20:59 Last Admin: 07/14/17 20:13 Dose: 325 mg Insulin Aspart (Novolog Insulin Sliding Scale) 3 - 12 units SUBQ ACHS GEMA PRN Reason: Protocol Stop: 08/29/17 20:59 Last Admin: 07/15/17 06:34 Dose: Not Given Lorazepam (Ativan) 1 mg PO Q4HR PRN; Protocol PRN Reason: Anxiety Stop: 08/29/17 17:14 Last Admin: 07/04/17 13:46 Dose: 1 mg Magnesium Hydroxide (Milk Of Magnesia) 30 ml PO DAILY PRN PRN Reason: Constipation Stop: 09/10/17 16:48 Last Admin: 07/13/17 16:34 Dose: 30 ml Quetiapine Fumarate 200 mg/ (Quetiapine Fumarate 25 mg) 225 mg PO BID GEMA Stop: 09/11/17 08:59 Last Admin: 07/15/17 08:30 Dose: 225 mg Zolpidem Tartrate (Ambien) 5 mg PO HS GEMA Stop: 08/29/17 20:59 Last Admin: 07/14/17 20:13 Dose: 5 mg General: No acute distress HEENT: Atraumatic Neck: no Thyromegaly Cardiovascular: Regular rate, Normal S1, Normal S2 - Procedures Procedures: Procedures Procedure Code Date GROUP PSYCHOTHERAPY GZHZZZZ 02/23/17 Assessment/Plan - Problem List Patient Problems: All Active Problems Diabetes (Acute) E11.9 ELEVATED WBC WITH AGITATION (Acute) History of seizure (Acute) Z87.898 Psychosis (Acute) F29 - Assessment Assessment: psychosis dementia agitation seizure hyperlipidemia - Plan Plan: seizure precautions low fat diet continue current tx Nutritional Asmnt/Malnutr-PDOC - Dietary Evaluation Malnutrition Findings (Please click <Entered> for more info): Nutritional Asmnt/Malnutrition Start: 07/02/17 11: 43 Text: Status: Complete Freq: Document 07/02/17 11:43 GSUN (Rec: 07/02/17 11:56 GSUN [email or web address]) Nutritional Asmnt/Malnutrition Patient General Information Nutritional Screening Moderate Risk Screening Diagnosis Schizoaffective disorder Pertinent Medical Hx/Surgical Hx Seizure, dementia, hyperlipidemia, depression, psychosis, DM Subjective Information 67 year old female from SNF. Pt was awake but very anxious during visit, able to answer basic questions. Pt kept saying she can not drink or eat because the voices will kill her. RD explained importance of nutrition and assured pt that nursing staff will be around during meal time to provide safe environment. Pt appeared more calm and asked about lunch. Observed empty milk carton at bedside. Avg PO intake 100% of meals yesterday. WEB GRAPHIC DESIGNER stated pt has good appetite. Pt is not suitable for DM education at this time. No muscle fat wasting noted. Current Diet Order/ Nutrition Support [id number] Pertinent Medications Novolog, Seroquel Pertinent Labs POC glucose 107-146 since adm Nutritional Hx/Data Height 1.63 m Height (Calculated Centimeters) 162.6 Current Weight (lbs) 72.847 kg Weight (Calculated Kilograms) 72.8 Weight (Calculated Grams) 88550.9 [place] Body Weight 120 Weight Status Overweight GI Symptoms Food Allergies No Skin Integrity/Comment: Serjio 17. Skin intact. Current %PO Good (75-100%) Estimated Nutritional Goals Calories/Kcals/Kg IBW 120lb/54.5kg Kcals Calculated 1363-1635kcal (26-30kcal/kg) Protein Calculated 55g (1g/kg) Fluid: ml 1363-1635ml (1ml/kcal) Nutritional Problem 1. Problem Problem Altered nutrition related laboratory values related to Etiology DM aeb Signs/Symptoms: H&P, elevated glucose, pt is on Novolog Intervention/Recommendation Comments 1. Continue with current diet order. Avg PO intake is adequate. 2. Nursing staff to provide supervision during meals and reassure pt of a safe meal environment. Pt mentioned the voice will kill her if pt eats /drinks. Expected Outcomes/Goals Expected Outcomes/Goals 1. PO intake continue to meet at least 75% of estimated nutritional needs.
--- NOTE | 2017-07-16 00:47 | Progress Notes ---
DATE: 07/15/2017 Case was discussed with staff of the patient, reviewed records. The patient continues to isolate herself. Continues to have poor insight. Continues to be unable to make safe plan for self-care. Unpredictable impulses. She reports the voices are fading away, but she complains feelings dizzy; when I discussed with the staff, they states she is always complaining of feeling dizziness. I asked them to check with the medical doctor regarding her dizziness and check her vital signs with Dr. Quinn. I will continue to work with the patient in group therapy, milieu therapy, adjust the medication as needed. JOB# [id number]
== END 2017-07-15 18:00 | DRG 885 ==
LOC: GERO 15:43
PROVIDERS: ADMIT Psychiatry & Neurology Psychiatry; ATTEND Psychiatry & Neurology Psychiatry
DX: F29 Unspecified psychosis not due to a substance or known physiological condition (principal); F03.90 Unspecified dementia, unspecified severity, without behavioral disturbance, psychotic disturbance, mood disturbance, and anxiety; R56.9 Unspecified convulsions; F25.9 Schizoaffective disorder, unspecified; E11.9 Type 2 diabetes mellitus without complications; E78.5 Hyperlipidemia, unspecified; F41.9 Anxiety disorder, unspecified; G47.00 Insomnia, unspecified; Z88.8 Allergy status to other drugs, medicaments and biological substances; Z79.4 Long term (current) use of insulin
CPT/HCPCS: 82948-90; J1815; Z7610

== ENCOUNTER 2018-01-15 19:42 | Inpatient (IN) | payer MEDICARE, MEDICAID ==
[2018-01-15 20:27] LABS: % BASOPHILS 0.7 % (0.0-2.0); % EOSINOPHILS 0.1 % (0.0-5.0); % LYMPHOCYTES 30.7 % (20.0-50.0); % MONOCYTES 8.7 % (2.0-10.0); % NEUTROPHILS 59.8 % (40.0-80.0); BASOPHILE ABSOLUTE 0.1 Th/cumm (0-0.2); HEMATOCRIT 33.9 % (41.0-60); HEMOGLOBIN 11.4 gm/dL (12-16); LYMPHOCYTE ABSOLUTE 2.9 Th/cmm (1.5-3.0); MEAN CORPUSCULAR HEMOGLOBIN 27.7 pg (27.0-31.0); MEAN CORPUSCULAR HGB CONC 33.8 pg (28.0-36.0); MEAN PLATELET VOLUME 6.1 fl; MONOCYTE ABSOLUTE 0.8 Th/cmm (0.3-1.0); NEUTROPHILE ABSOLUTE 5.5 Th/cmm (1.8-8.0); PLATELET COUNT 514 Th/cmm (150-400); RED BLOOD COUNT 4.13 Mil/cmm (3.80-5.20); RED CELL DISTRIBUTION WIDTH 13.7 % (11.5-20.0); WHITE BLOOD COUNT 9.3 Th/cmm (4.8-10.8)
[2018-01-15 20:41] LABS: ALB/GLOB RATIO 1.3 (1.0-1.8); ALBUMIN 4.1 gm/dL (3.7-5.3); ALKALINE PHOSPHATASE 94 U/L (34-104); BILIRUBIN,TOTAL 0.3 mg/dL (0.3-1.0); BUN - UREA NITROGEN 15 mg/dL (7-25); CALCIUM SERUM 9.7 mg/dL (8.6-10.3); CHLORIDE 98 mEq/L (98-107); CREATININE - SERUM 0.7 mg/dL (0.6-1.2); GFR AFRICAN-AMERICAN > 60.0 ml/min (>90); GFR NON AFRICAN-AMERICAN > 60.0 ml/min; GLUCOSE 88 mg/dL (70-105); SGOT 10 U/L (13-39); SGPT/ALT 9 U/L (7-52); SODIUM SERUM 127 mEq/L (136-145); TOTAL PROTEIN,SERUM 7.2 gm/dL (6.0-8.3)
--- NOTE | 2018-01-15 20:57 | ED Physician Chart ---
ED Chief Complaint/HPI - Patient Information Date Seen:: 01/15/18 Time Seen:: 20:45 Chief Complaint:: auditory hallucinations History of Present Illness:: Patient's been hearing voices which tell her to kill herself. Patient says please don't let me . Patient refusing activities of daily living. Allergies:: Allergies Allergy/AdvReac Type Severity Reaction Status Date / Time haloperidol [From Haldol] Allergy Verified 01/15/18 20:24 ziprasidone [From Geodon] Allergy Verified 01/15/18 20:24 Vitals:: Vital Signs - 8 hr 01/15/18 20:00 Temp 98.0 F HR 88 RR 18 BP 148/73 O2 Sat % 95 Historian:: Patient Review:: Nurse's Note Reviewed ED Review of Systems - Review of Systems General/Constitutional: No fever, No chills Skin: No skin lesions Head: No headache Eyes: No loss of vision ENT: No earache Neck: No neck pain Cardio Vascular: No chest pain Pulmonary: No SOB GI: No nausea, No vomiting, No diarrhea G/U: No dysuria, No frequency, No hematuria Musculoskeletal: No bone or joint pain, No back pain, No muscle pain Endocrine: No polyuria Psychiatric: Prior psych history, Auditory hallucination Hematopoietic: No bruising, No lymphadenopathy ED Past Medical History - Past Medical History Past Medical History: DM Family History: None Social History: Non Smoker, No Alcohol Surgical History: None Psychiatricy History: Dementia (schizophrenia) Medication: Reviewed Family Medical History - Family Member Mother History Unknown: Yes Ethnicity: Unknown ED Physical Exam - Physical Examination General/Constitutional: Well-developed, well-nourished, Alert, No distress Other Gen/Cons comments:: Patient is mildly agitated and confused; she does not know the correct year Head: Atraumatic Eyes: Lids, conjuctiva normal Skin: Nl inspection, No rash ENMT: External ears, nose nl, TM canals nl Neck: No nuchal rigidity Respiratory: Nl effort/Exclusion, Clear to Auscultation, No Wheeze/Rhonchi/Rales Cardio Vascular: RRR, No murmur, gallop, rubs, NL S1 S2 GI: No tenderness/rebounding/guarding, No organomegaly, No hernia, Normal BS's, Nondistended, No mass/bruits Extremities: No tenderness or effusion, Full ROM, normal strength in all extremities, No edema Neuro/Psych: No focal deficits Misc: Normal back ED Labs/Radiology/EKG Results - Lab Results Results: Laboratory Tests 01/15/18 01/15/18 20:22 20:22 WBC 9.3 RBC 4.13 Hgb 11.4 L Hct 33.9 L MCV 82.0 MCH 27.7 MCHC Differential 33.8 RDW 13.7 Plt Count 514 H MPV 6.1 Neutrophils % 59.8 Lymphocytes % 30.7 Monocytes % 8.7 Eosinophils % 0.1 Basophils % 0.7 Sodium 127 L Potassium 4.0 Chloride 98 Carbon Dioxide 24.0 Anion Gap 9.0 BUN 15 Creatinine 0.7 Est GFR ( Amer) > 60.0 Est GFR (Non-Af Amer) > 60.0 BUN/Creatinine Ratio 21.4 Glucose 88 Calcium 9.7 Total Bilirubin 0.3 AST 10 L ALT 9 Alkaline Phosphatase 94 Total Protein 7.2 Albumin 4.1 Globulin 3.1 Albumin/Globulin Ratio 1.3 - EKG Interpretations Rate & Rhythm: normal sinus rhythm with a rate of 79 Krypton: normal axis Comments:: Left ventricular hypertrophy and right bundle-branch block ED Assessment - Assessment General Assessment: Patient's hyponatremia is probably from taking so much water. She frequently asked for water and also food while in the emergency department. ED Septic Shock - . Is Septic Shock (SBP<90, OR Lactate>4 mmol\L) present?: No - <6hrs of presentation: Vital Signs: Vital Signs - 8 hr 01/15/18 20:00 Temp 98.0 F HR 88 RR 18 BP 148/73 O2 Sat % 95 ED Reassessment (Disposition) - Reassessment Reassessment Condition:: Unchanged - Diagnosis Diagnosis:: Agitation; schizophrenia; hyponatremia - Patient Disposition Admitted to:: [facility] Admitting Medical Physician:: Katerine Quinn Admitting Psych Physician:: Ramone Santos Condition at Disposition:: Stable, Unchanged
[2018-01-15 21:21] VITALS: BP 120/65
[2018-01-15] MEDS ORDERED: Magnesium Hydroxide (MOM) 30 mL UDC PO PRN (21:22)
[2018-01-16] MEDS: Multivitamin Tab PO SCH (08:34)
--- NOTE | 2018-01-16 18:01 | History and Physical ---
History of Present Illness - HPI Chief Complaint: auditory hallucinations HPI: This is a 67 year old female who [facility] due to auditory hallucinations. Vital Signs: Last Vital Signs Temp 98.1 F 01/16/18 14:27 Pulse 94 01/16/18 14:27 Resp 18 01/16/18 14:27 BP 116/60 01/16/18 14:27 Pulse Ox 96 01/16/18 14:27 Past Medical History Other History: dm Family Medical History - Family Member Mother History Unknown: Yes Ethnicity: Unknown Living Status: Unknown Social History Smoke: No Alcohol: None Drugs: None Lives: [facility] - Medications Home Medications: Home Medication Medication Instructions Recorded Type Acetaminophen [Tylenol Extra 1,000 mg PO Q4HR PRN 01/15/18 History Strength] Acetaminophen [Tylenol] 650 mg PO Q4HR PRN 01/15/18 History Clonazepam [Clonazepam*] 1 mg PO BID 01/15/18 History Clozapine 325 mg PO HS 01/15/18 History Magnesium Hydroxide [Milk of 30 ml PO HS PRN 01/15/18 History Magnesia] QUEtiapine Fumarate [SEROquel] 225 mg PO BID 01/15/18 History Zolpidem Tartrate [Ambien] 5 mg PO HS PRN 01/15/18 History - Allergies Allergies/Adverse Reactions: Allergies Allergy/AdvReac Type Severity Reaction Status Date / Time haloperidol [From Haldol] Allergy Verified 01/15/18 20:24 ziprasidone [From Geodon] Allergy Verified 01/15/18 20:24 Review of Systems - Review of Systems Constitutional: Report: No Significant Eyes: Report: No Significant Respiratory: Report: No Significant Cardiovascular: Report: No Significant Neurological: Report: No Significant Physical Exam - Physical Exam HEENT: Report: Ears Nose Throat within normal limits Neck: Report: Within normal limits Cardiovascular Systems: Report: +s1/s2 noted, Regular, Rate and Rhythm Respiratory: Report: Breath Sounds are within normal limits Abdomen: Report: Non-tender to palpation Back: Report: Inspection of back is within normal limits. Skin: Report: Color of skin is within normal limits Neuro/Psych: Report: Mood affect is within normal limits - Assessment Assessment: auditory hallucinations dm psychosis - Plan Plan: continue current orders
--- NOTE | 2018-01-16 20:28 | Psychosocial Evaluation ---
DATE OF SERVICE: 01/16/2018 JUSTIFICATION FOR HOSPITALIZATION: Hearing voices telling her to kill herself, refusing ADLs, decompensating. CHIEF COMPLAINT: Bad voices. HISTORY OF PRESENT ILLNESS: A 67-year-old female with long history of schizophrenia, hearing hallucinations, commanding her to kill self, hurt self, the patient not shravan for safety, under a lot of distress and duress from these hallucinations and perceptual disturbances. The patient is attesting to depressed mood, some anxiety. Okay sleep, okay appetite. Denying any overt paranoia, for example, does not feel that anybody is trying to harm her. PAST PSYCHIATRIC HISTORY: Hospitalizations in the past, diagnosis of schizophrenia in the past. FAMILY HISTORY: Noncontributory. SOCIAL HISTORY: She states that she was born in [place], not currently . She lives in the shelter in [place]. She states she has 4 kids. Denies any drugs, alcohol or tobacco. PAST MEDICAL HISTORY: Noted per documentation, dementia is included. MENTAL STATUS EXAMINATION: Stated age. Fair eye contact. Fair orientation. She knows where she is. She knows why she is here. She is not quite sure about the year or the month. Mood "not good." Affect withdrawn. Thought processes were somewhat tangential and redirectable. The patient with SI; command hallucinations telling her to harm self. No HI. Insight and judgment diminished. Poor impulse control. The patient apparently was mildly agitated upon initial presentation. PROVISIONAL DIAGNOSES: Schizophrenia, major depression, unspecified. Under medical, please see full H and P. ASSESSMENT: The patient requiring inpatient hospitalization, psychotic, decompensating, hallucinations worsening. PLAN: Continue Clozaril. Continue Seroquel. We will likely need to increase dose of Clozaril, decreased dose of Seroquel. TREATMENT PLAN: Includes group as well as milieu therapy. CONDITIONS FOR DISCHARGE: Improved mood, improved affect, cessation of any SI, better control of voices. JOB# [id number]
[2018-01-16] MEDS ORDERED: CLOZAPINE PO SCH (21:00)
[2018-01-16] MEDS: cloZAPine 300 MG, cloZAPine 25 MG PO SCH (21:27)
[2018-01-17] MEDS: Multivitamin Tab PO SCH (09:29)
--- NOTE | 2018-01-17 15:32 | Progress Notes ---
DATE: 01/17/2018 SUBJECTIVE: The patient was seen in her room lying on the bed. The patient appears to be comfortable, in no acute distress. The patient denies any suicidal or homicidal ideation. OBJECTIVE: VITAL SIGNS: Temperature 98, heart rate 97, blood pressure 108/66, respirations 21, and 98% on room air. HEENT: Head is atraumatic and normocephalic. Eyes: Bilateral conjunctivae are clear. Bilateral pupils are equally round and reactive. NECK: Supple. No JVD. CARDIOVASCULAR: S1 and S2, without murmur. PULMONARY: Clear to auscultation. GASTROINTESTINAL: Soft and nontender without guarding. Positive bowel sounds. MUSCULOSKELETAL: No clubbing. No cyanosis noted. ASSESSMENT: 1. Schizophrenia. 2. Major depression disorder. 3. Diabetes. PLAN: We will keep the patient inpatient Psychiatric Unit. We will follow up with the psychiatrist to monitor the patient's condition and behavior. I am also going to check the patient's hemoglobin A1c. Treatment plans were discussed with the patient's nurse. Treatment plans were discussed with Dr. Quinn. JOB# [id number]
[2018-01-17 19:24] LABS: A1C % 5.3 % (4.0-6.0)
[2018-01-17] MEDS: cloZAPine 300 MG, cloZAPine 25 MG PO SCH (20:36)
--- NOTE | 2018-01-18 06:50 | Progress Notes ---
DATE: 01/17/2018 Dr. Meneses covering for Dr. Doan. SUBJECTIVE: Chart reviewed and the patient interviewed. Also discussed the patient's condition with the staff and reviewed records and labs. The patient is still reporting auditory hallucinations telling her to kill herself. The patient also is still unpredictable and still actively responding to stimuli. The patient also is still afraid of the voices and still saying that the voices are strong and bothering her. On the other hand, the patient continued to comply with taking her medications with no side effects of medications. ASSESSMENT: The patient is still psychotic and is still unpredictable. TREATMENT PLAN: Continue Seroquel in a dose of 225 mg twice a day and also continue Klonopin 1 mg twice a day. Also, continue to monitor her behavior and her condition closely because of her impulsivity and her severe psychosis. JOB# [id number]
[2018-01-18] MEDS: Multivitamin Tab PO SCH (08:51)
--- NOTE | 2018-01-18 10:14 | General Progress Note ---
Subjective - Review of Systems Events since last encounter: patient awake confused psychotic Objective - Results Result Diagrams: 01/15/18 20:22 01/15/18 20:22 Recent Labs: Laboratory Last Values WBC 9.3 Th/cmm (4.8-10.8) 01/15/18 20:22 RBC 4.13 Mil/cmm (3.80-5.20) 01/15/18 20:22 Hgb 11.4 gm/dL (12-16) L 01/15/18 20:22 Hct 33.9 % (41.0-60) L 01/15/18 20:22 MCV 82.0 fl (81-100) 01/15/18 20: MCH 27.7 pg (27.0-31.0) 01/15/18: MCHC Differential 33.8 pg (28.0-36.0) 01/15/18 20: RDW 13.7 % (11.5-20.0) 01/15/18 20: Plt Count 514 Th/cmm (150-400) H 01/15/18 20:22 MPV 6.1 fl 01/15/18 20:22 Neutrophils % 59.8 % (40.0-80.0) 01/15/18 20: Lymphocytes % 30.7 % (20.0-50.0) 01/15/18: Monocytes % 8.7 % (2.0-10.0) 01/15/18 20: Eosinophils % 0.1 % (0.0-5.0) 01/15/18: Basophils % 0.7 % (0.0-2.0) 01/15/18 20:22 Sodium 127 mEq/L (136-145) L 01/15/18 20:22 Potassium 4.0 mEq/L (3.5-5.1) 01/15/18 20:22 Chloride 98 mEq/L (98-107) 01/15/18 20: Carbon Dioxide 24.0 mEq/L (21.0-31.0) 01/15/18 20: Anion Gap 9.0 (7.0-16.0) 01/15/18 20:22 BUN 15 mg/dL (7-25) 01/15/18 20:22 Creatinine 0.7 mg/dL (0.6-1.2) 01/15/18 20:22 Est GFR ( Amer) > 60.0 ml/min (>90) 01/15/18 20:22 Est GFR (Non-Af Amer) > 60.0 ml/min 01/15/18 20:22 BUN/Creatinine Ratio 21.4 01/15/18 20:22 Glucose 88 mg/dL (70-105) 01/15/18 20:22 Hemoglobin A1c % 5.3 % (4.0-6.0) 01/17/18 10:45 Calcium 9.7 mg/dL (8.6-10.3) 01/15/18 20:22 Total Bilirubin 0.3 mg/dL (0.3-1.0) 01/15/18 20:22 AST 10 U/L (13-39) L 01/15/18 20:22 ALT 9 U/L (7-52) 01/15/18 20:22 Alkaline Phosphatase 94 U/L (34-104) 01/15/18 20:22 Total Protein 7.2 gm/dL (6.0-8.3) 01/15/18 20:22 Albumin 4.1 gm/dL (3.7-5.3) 01/15/18 20:22 Globulin 3.1 gm/dL 01/15/18 20:22 Albumin/Globulin Ratio 1.3 (1.0-1.8) 01/15/18 20:22 TSH 0.06 uIU/ml (0.34-5.60) L 01/15/18 20:22 RPR NONREACTIVE (NONREACTIVE) 01/15/18 20:22 - Physical Exam Vitals and I&O: Vital Signs Temp 97 F 01/18/18 06:02 Pulse 100 01/18/18 06:02 Resp 19 01/18/18 06:02 BP 126/61 01/17/18 21:51 Pulse Ox 98 01/18/18 06:02 Intake & Output 01/17/18 01/18/18 01/18/18 17:59 06:59 18:59 Intake Total Balance Intake: Oral Other: # Voids # Bowel Movements Active Medications: Current Medications Al Hydrox/Mg Hydrox/Simethicone (Maalox) 30 ml PO Q4HR PRN PRN Reason: GI DISTRESS Stop: 03/16/18 21:21 Clonazepam (Klonopin) 1 mg PO BID GEMA Stop: 03/17/18 08:59 Clozapine 300 mg/ Clozapine 25 (mg) 325 mg PO HS GEMA Stop: 03/17/18 20:59 Last Admin: 01/17/18 20:36 Dose: 325 mg Lorazepam (Ativan) 0.5 mg PO Q4HR PRN; Protocol PRN Reason: Anxiety/agitation Stop: 02/14/18 21:21 Last Admin: 01/16/18 07:52 Dose: 0.5 mg Magnesium Hydroxide (Milk Of Magnesia) 30 ml PO HS PRN PRN Reason: Constipation Multivitamins/Vitamin C (Theragran) 1 tab PO DAILY GEMA Stop: 03/17/18 08:59 Last Admin: 01/17/18 09:29 Dose: 1 tab Mupirocin (Bactroban Oint) 1 appl NS BID GEMA Stop: 01/22/18 09:01 Last Admin: 01/17/18 18:00 Dose: 1 appl Quetiapine Fumarate (Seroquel) 225 mg PO BID GEMA PRN Reason: Protocol Stop: 03/17/18 08:59 Last Admin: 01/17/18 18:00 Dose: 225 mg Zolpidem Tartrate (Ambien) 5 mg PO HS PRN PRN Reason: Insomnia Stop: 03/16/18 21:21 Last Admin: 01/16/18 21:27 Dose: 5 mg - Procedures Procedures: Procedures Procedure Code Date GROUP PSYCHOTHERAPY GZHZZZZ 02/23/17
[2018-01-18] MEDS: Maalox 30 mL Cup PO PRN (18:01)
[2018-01-18] MEDS: cloZAPine 300 MG, cloZAPine 25 MG PO SCH (21:45)
[2018-01-19] MEDS: Maalox 30 mL Cup PO PRN ×3 (03:16→21:00)
--- NOTE | 2018-01-19 09:39 | General Progress Note ---
Subjective - Review of Systems Events since last encounter: patient awake in no distress Objective - Results Result Diagrams: 01/15/18 20:22 01/15/18 20:22 Recent Labs: Laboratory Last Values WBC 9.3 Th/cmm (4.8-10.8) 01/15/18 20: RBC 4.13 Mil/cmm (3.80-5.20) 01/15/18 20:22 Hgb 11.4 gm/dL (12-16) L 01/15/18 20:22 Hct 33.9 % (41.0-60) L 01/15/18 20:22 MCV 82.0 fl (81-100) 01/15/18 20: MCH 27.7 pg (27.0-31.0) 01/15/18: MCHC Differential 33.8 pg (28.0-36.0) 01/15/18 20: RDW 13.7 % (11.5-20.0) 01/15/18 20: Plt Count 514 Th/cmm (150-400) H 01/15/18 20:22 MPV 6.1 fl 01/15/18 20:22 Neutrophils % 59.8 % (40.0-80.0) 01/15/18 20: Lymphocytes % 30.7 % (20.0-50.0) 01/15/18: Monocytes % 8.7 % (2.0-10.0) 01/15/18 20: Eosinophils % 0.1 % (0.0-5.0) 01/15/18: Basophils % 0.7 % (0.0-2.0) 01/15/18 20:22 Sodium 127 mEq/L (136-145) L 01/15/18 20:22 Potassium 4.0 mEq/L (3.5-5.1) 01/15/18 20: Chloride 98 mEq/L (98-107) 01/15/18 20: Carbon Dioxide 24.0 mEq/L (21.0-31.0) 01/15/18 20: Anion Gap 9.0 (7.0-16.0) 01/15/18 20:22 BUN 15 mg/dL (7-25) 01/15/18 20:22 Creatinine 0.7 mg/dL (0.6-1.2) 01/15/18 20:22 Est GFR ( Amer) > 60.0 ml/min (>90) 01/15/18 20:22 Est GFR (Non-Af Amer) > 60.0 ml/min 01/15/18 20:22 BUN/Creatinine Ratio 21.4 01/15/18 20:22 Glucose 88 mg/dL (70-105) 01/15/18 20:22 Hemoglobin A1c % 5.3 % (4.0-6.0) 01/17/18 10:45 Calcium 9.7 mg/dL (8.6-10.3) 01/15/18 20:22 Total Bilirubin 0.3 mg/dL (0.3-1.0) 01/15/18 20:22 AST 10 U/L (13-39) L 01/15/18 20:22 ALT 9 U/L (7-52) 01/15/18 20:22 Alkaline Phosphatase 94 U/L (34-104) 01/15/18 20:22 Total Protein 7.2 gm/dL (6.0-8.3) 01/15/18 20:22 Albumin 4.1 gm/dL (3.7-5.3) 01/15/18 20:22 Globulin 3.1 gm/dL 01/15/18 20:22 Albumin/Globulin Ratio 1.3 (1.0-1.8) 01/15/18 20:22 TSH 0.06 uIU/ml (0.34-5.60) L 01/15/18 20:22 RPR NONREACTIVE (NONREACTIVE) 01/15/18 20:22 - Physical Exam Vitals and I&O: Vital Signs Temp 98.8 F 01/19/18 06:05 Pulse 103 01/19/18 06:05 Resp 19 01/19/18 06:05 BP 123/73 01/19/18 06:05 Pulse Ox 94 01/19/18 06:05 Intake & Output 01/18/18 01/19/18 01/19/18 18:59 06:59 18:59 Intake Total 1500 180 Balance 1500 180 Intake: Oral 1500 180 Other: # Voids 3 2 # Bowel Movements 0 Active Medications: Current Medications Al Hydrox/Mg Hydrox/Simethicone (Maalox) 30 ml PO Q4HR PRN PRN Reason: GI DISTRESS Stop: 03/16/18 21:21 Last Admin: 01/19/18 03:16 Dose: 30 ml Clonazepam (Klonopin) 1 mg PO BID GEMA Stop: 03/17/18 08:59 Clozapine 300 mg/ Clozapine 25 (mg) 325 mg PO HS GEMA Stop: 03/17/18 20:59 Last Admin: 01/18/18 21:45 Dose: 325 mg Lorazepam (Ativan) 0.5 mg PO Q4HR PRN; Protocol PRN Reason: Anxiety/agitation Stop: 02/14/18 21:21 Last Admin: 01/18/18 18:01 Dose: 0.5 mg Magnesium Hydroxide (Milk Of Magnesia) 30 ml PO HS PRN PRN Reason: Constipation Multivitamins/Vitamin C (Theragran) 1 tab PO DAILY GEMA Stop: 03/17/18 08:59 Last Admin: 01/18/18 08:51 Dose: 1 tab Mupirocin (Bactroban Oint) 1 appl NS BID GEMA Stop: 01/22/18 09:01 Last Admin: 01/18/18 18:01 Dose: 1 appl Quetiapine Fumarate (Seroquel) 225 mg PO BID GEMA PRN Reason: Protocol Stop: 03/17/18 08:59 Last Admin: 01/18/18 18:00 Dose: 225 mg Zolpidem Tartrate (Ambien) 5 mg PO HS PRN PRN Reason: Insomnia Stop: 03/16/18 21:21 Last Admin: 01/18/18 22:09 Dose: 5 mg - Procedures Procedures: Procedures Procedure Code Date GROUP PSYCHOTHERAPY GZHZZZZ 02/23/17
[2018-01-19] MEDS: Multivitamin Tab PO SCH (09:47)
--- NOTE | 2018-01-19 20:13 | Progress Notes ---
DATE: 01/19/2018 The patient highly intrusive, ruminative, states she cannot leave because of her medications, states she has many medical problems such as GERD, stating that she needs pain medications and she states that she has no appetite and she states she has no home to go to. She seems to be mumbling to self, ongoing concerns about psychosis. The patient yelling, still screaming, difficult to interrupt. ASSESSMENT: The patient remains highly anxious, ruminative, not safe for a lower level of care. She remains on Seroquel. Her behaviors remain unruly and highly anxious. PLAN: We will continue to monitor. Given her ongoing symptoms, she is not safe for discharge at this time. [facility]# [id number]
[2018-01-19] MEDS: cloZAPine 300 MG, cloZAPine 25 MG PO SCH (20:59)
[2018-01-20] MEDS: Multivitamin Tab PO SCH (10:38)
--- NOTE | 2018-01-20 16:21 | Internal Medicine Prog Note ---
Internal Medicine Subjective - Subjective Service Date: 01/20/18 Patient seen and examined:: with staff Patient is:: awake, verbal Per staff patient has:: tolerating meds Internal Medicine Objective - Results Result Diagrams: 01/15/18 20:22 01/15/18 20:22 Recent Labs: Laboratory Last Values WBC 9.3 Th/cmm (4.8-10.8) 01/15/18 20: RBC 4.13 Mil/cmm (3.80-5.20) 01/15/18 20:22 Hgb 11.4 gm/dL (12-16) L 01/15/18 20:22 Hct 33.9 % (41.0-60) L 01/15/18 20: MCV 82.0 fl (81-100) 01/15/18 20: MCH 27.7 pg (27.0-31.0) 01/15/18: MCHC Differential 33.8 pg (28.0-36.0) 01/15/18 20: RDW 13.7 % (11.5-20.0) 01/15/18 20: Plt Count 514 Th/cmm (150-400) H 01/15/18 20:22 MPV 6.1 fl 01/15/18 20:22 Neutrophils % 59.8 % (40.0-80.0) 01/15/18 20: Lymphocytes % 30.7 % (20.0-50.0) 01/15/18 20: Monocytes % 8.7 % (2.0-10.0) 01/15/18: Eosinophils % 0.1 % (0.0-5.0) 01/15/18 20: Basophils % 0.7 % (0.0-2.0) 01/15/18 20:22 Sodium 127 mEq/L (136-145) L 01/15/18 20:22 Potassium 4.0 mEq/L (3.5-5.1) 01/15/18 20:22 Chloride 98 mEq/L (98-107) 01/15/18 20:22 Carbon Dioxide 24.0 mEq/L (21.0-31.0) 01/15/18 20: Anion Gap 9.0 (7.0-16.0) 01/15/18 20:22 BUN 15 mg/dL (7-25) 01/15/18 20:22 Creatinine 0.7 mg/dL (0.6-1.2) 01/15/18 20:22 Est GFR ( Amer) > 60.0 ml/min (>90) 01/15/18 20:22 Est GFR (Non-Af Amer) > 60.0 ml/min 01/15/18 20:22 BUN/Creatinine Ratio 21.4 01/15/18 20:22 Glucose 88 mg/dL (70-105) 01/15/18 20:22 Hemoglobin A1c % 5.3 % (4.0-6.0) 01/17/18 10:45 Calcium 9.7 mg/dL (8.6-10.3) 01/15/18 20:22 Total Bilirubin 0.3 mg/dL (0.3-1.0) 01/15/18 20:22 AST 10 U/L (13-39) L 01/15/18 20:22 ALT 9 U/L (7-52) 01/15/18 20:22 Alkaline Phosphatase 94 U/L (34-104) 01/15/18 20:22 Total Protein 7.2 gm/dL (6.0-8.3) 01/15/18 20:22 Albumin 4.1 gm/dL (3.7-5.3) 01/15/18 20:22 Globulin 3.1 gm/dL 01/15/18 20:22 Albumin/Globulin Ratio 1.3 (1.0-1.8) 01/15/18 20:22 TSH 0.06 uIU/ml (0.34-5.60) L 01/15/18 20:22 RPR NONREACTIVE (NONREACTIVE) 01/15/18 20:22 - Physical Exam Vitals and I&O: Vital Signs Temp 99.6 F 01/20/18 05:52 Pulse 65 01/20/18 05:43 Resp 19 01/20/18 12:36 BP 109/74 01/20/18 05:43 Pulse Ox 96 01/20/18 05:43 Intake & Output 01/19/18 01/20/18 01/20/18 18:59 06:59 18:59 Intake Total 240 Balance 240 Intake: Oral 240 Other: # Voids 2 # Bowel Movements 0 Active Medications: Current Medications Al Hydrox/Mg Hydrox/Simethicone (Maalox) 30 ml PO Q4HR PRN PRN Reason: GI DISTRESS Stop: 03/16/18 21:21 Last Admin: 01/19/18 21:00 Dose: 30 ml Clonazepam (Klonopin) 1 mg PO BID GEMA Stop: 03/17/18 08:59 Last Admin: 01/20/18 10:38 Dose: 1 mg Clozapine 300 mg/ Clozapine 25 (mg) 325 mg PO HS GEMA Stop: 03/17/18 20:59 Last Admin: 01/19/18 20:59 Dose: 325 mg Lorazepam (Ativan) 0.5 mg PO Q4HR PRN; Protocol PRN Reason: Anxiety/agitation Stop: 02/14/18 21:21 Last Admin: 01/19/18 14:48 Dose: 0.5 mg Magnesium Hydroxide (Milk Of Magnesia) 30 ml PO HS PRN PRN Reason: Constipation Multivitamins/Vitamin C (Theragran) 1 tab PO DAILY GEMA Stop: 03/17/18 08:59 Last Admin: 01/20/18 10:38 Dose: 1 tab Mupirocin (Bactroban Oint) 1 appl NS BID GEMA Stop: 01/22/18 09:01 Last Admin: 01/20/18 10:38 Dose: 1 appl Quetiapine Fumarate 200 mg/ (Quetiapine Fumarate 25 mg) 225 mg PO BID [facility] Stop: 03/20/18 16:59 Last Admin: 01/20/18 10:38 Dose: 225 mg Zolpidem Tartrate (Ambien) 5 mg PO HS PRN PRN Reason: Insomnia Stop: 03/16/18 21:21 Last Admin: 01/19/18 21:00 Dose: 5 mg General: alert HEENT: NC/AT, PERRLA Neck: Supple Lungs: CTAB Cardiovascular: RRR Abdomen: soft, non-tender, non-distended, positive bowel sound Neurological: alert - Procedures Procedures: Procedures Procedure Code Date GROUP PSYCHOTHERAPY GZHZZZZ 02/23/17 Internal Medicine Assmt/Plan - Assessment Assessment: auditory hallucinations dm psychosis - Plan Plan: continue current orders
[2018-01-20] MEDS: Maalox 30 mL Cup PO PRN (17:40)
--- NOTE | 2018-01-20 18:59 | Progress Notes ---
DATE: 01/20/2018 SUBJECTIVE: The patient is currently in the hospital, hearing voices telling her to kill herself, refusing ADLs, decompensating. The patient with a long history of schizophrenia, stating "I am sick" on initial examination. Still telling me about her reflux. Telling me that she has a sore throat and a cough. The patient is still loud, still unruly, yelling and screaming at times. Medications were noted. No overt side effects were noted. She remained somewhat isolative. ASSESSMENT: The patient remains symptomatic, still with ongoing voices, yelling, responding to internal stimuli, saying things that are difficult to understand. She is somewhat calmer versus initial presentation, better impulse control. No aggression. PLAN: We will continue to monitor. Continue Seroquel. Given her ongoing symptoms, she is not safe for discharge. [facility]# [id number]
[2018-01-20] MEDS: cloZAPine 300 MG, cloZAPine 25 MG PO SCH (22:03)
[2018-01-21] MEDS ORDERED: Albuterol Nebulizer 2.5mg/3mL HHN PRN (01:32)
[2018-01-21] MEDS: Maalox 30 mL Cup PO PRN (01:33)
[2018-01-21] MEDS: Multivitamin Tab PO SCH (09:10)
--- NOTE | 2018-01-21 16:57 | Internal Medicine Prog Note ---
Internal Medicine Subjective - Subjective Patient is:: awake, verbal Per staff patient has:: tolerating meds Internal Medicine Objective - Results Result Diagrams: 01/15/18 20:01/15/18 20: Recent Labs: Laboratory Last Values WBC 9.3 Th/cmm (4.8-10.8) 01/15/18 20: RBC 4.13 Mil/cmm (3.80-5.20) 01/15/18 20: Hgb 11.4 gm/dL (12-16) L 01/15/18 20: Hct 33.9 % (41.0-60) L 01/15/18 20: MCV 82.0 fl (81-100) 01/15/18: MCH 27.7 pg (27.0-31.0) 01/15/18: MCHC Differential 33.8 pg (28.0-36.0) 01/15/18: RDW 13.7 % (11.5-20.0) 01/15/18: Plt Count 514 Th/cmm (150-400) H 01/15/18 20: MPV 6.1 fl 01/15/18 20: Neutrophils % 59.8 % (40.0-80.0) 01/15/18: Lymphocytes % 30.7 % (20.0-50.0) 01/15/18 20: Monocytes % 8.7 % (2.0-10.0) 01/15/18: Eosinophils % 0.1 % (0.0-5.0) 01/15/18: Basophils % 0.7 % (0.0-2.0) 01/15/18 20: Sodium 127 mEq/L (136-145) L 01/15/18 20: Potassium 4.0 mEq/L (3.5-5.1) 01/15/18: Chloride 98 mEq/L (98-107) 01/15/18: Carbon Dioxide 24.0 mEq/L (21.0-31.0) 01/15/18 20: Anion Gap 9.0 (7.0-16.0) 01/15/18 20: BUN 15 mg/dL (7-25) 01/15/18 20:22 Creatinine 0.7 mg/dL (0.6-1.2) 01/15/18 20:22 Est GFR ( Amer) > 60.0 ml/min (>90) 01/15/18 20:22 Est GFR (Non-Af Amer) > 60.0 ml/min 01/15/18 20:22 BUN/Creatinine Ratio 21.4 01/15/18 20:22 Glucose 88 mg/dL (70-105) 01/15/18 20:22 Hemoglobin A1c % 5.3 % (4.0-6.0) 01/17/18 10:45 Calcium 9.7 mg/dL (8.6-10.3) 01/15/18 20:22 Total Bilirubin 0.3 mg/dL (0.3-1.0) 01/15/18 20:22 AST 10 U/L (13-39) L 01/15/18 20:22 ALT 9 U/L (7-52) 01/15/18 20:22 Alkaline Phosphatase 94 U/L (34-104) 01/15/18 20:22 Total Protein 7.2 gm/dL (6.0-8.3) 01/15/18 20:22 Albumin 4.1 gm/dL (3.7-5.3) 01/15/18 20:22 Globulin 3.1 gm/dL 01/15/18 20:22 Albumin/Globulin Ratio 1.3 (1.0-1.8) 01/15/18 20:22 TSH 0.06 uIU/ml (0.34-5.60) L 01/15/18 20:22 RPR NONREACTIVE (NONREACTIVE) 01/15/18 20:22 - Physical Exam Vitals and I&O: Vital Signs Temp 97.4 F 01/21/18 14:00 Pulse 95 01/21/18 14:00 Resp 18 01/21/18 14:00 BP 106/70 01/21/18 14:00 Pulse Ox 97 01/21/18 14:00 Intake & Output 01/20/18 01/21/18 01/21/18 18:59 06:59 18:59 Intake Total 120 Balance 120 Intake: Oral 120 Other: # Voids 3 # Bowel Movements 0 Active Medications: Current Medications Al Hydrox/Mg Hydrox/Simethicone (Maalox) 30 ml PO Q4HR PRN PRN Reason: GI DISTRESS Stop: 03/16/18 21:21 Last Admin: 01/21/18 01:33 Dose: 30 ml Albuterol Sulfate (Albuterol 2.5mg/3ml Neb Ud) 2.5 mg HHN Q4HR PRN PRN Reason: Shortness of Breath Stop: 03/22/18 01:31 Last Admin: 01/21/18 01:58 Dose: 2.5 mg Clonazepam (Klonopin) 1 mg PO BID GEMA Stop: 03/17/18 08:59 Last Admin: 01/21/18 09:10 Dose: 1 mg Clozapine (Clozaril) 350 mg PO HS GEMA Stop: 03/22/18 11:51 Lorazepam (Ativan) 0.5 mg PO Q4HR PRN; Protocol PRN Reason: Anxiety/agitation Stop: 02/14/18 21:21 Last Admin: 01/19/18 14:48 Dose: 0.5 mg Magnesium Hydroxide (Milk Of Magnesia) 30 ml PO HS PRN PRN Reason: Constipation Multivitamins/Vitamin C (Theragran) 1 tab PO DAILY GEMA Stop: 03/17/18 08:59 Last Admin: 01/21/18 09:10 Dose: 1 tab Mupirocin (Bactroban Oint) 1 appl NS BID GEMA Stop: 01/22/18 09:01 Last Admin: 01/21/18 09:10 Dose: 1 appl Quetiapine Fumarate 200 mg/ (Quetiapine Fumarate 25 mg) 225 mg PO BID GEMA Stop: 03/20/18 16:59 Last Admin: 01/21/18 09:10 Dose: 225 mg Zolpidem Tartrate (Ambien) 5 mg PO HS PRN PRN Reason: Insomnia Stop: 03/16/18 21:21 Last Admin: 01/19/18 21:00 Dose: 5 mg General: alert HEENT: NC/AT, PERRLA Neck: Supple Lungs: CTAB Cardiovascular: RRR Abdomen: soft, non-tender, non-distended, positive bowel sound Neurological: alert - Procedures Procedures: Procedures Procedure Code Date GROUP PSYCHOTHERAPY GZHZZZZ 02/23/17 Nutritional Asmnt/Malnutr-PDOC - Dietary Evaluation Malnutrition Findings (Please click <Entered> for more info): Nutritional Asmnt/Malnutrition Start: 01/20/18 17: 51 Text: Status: Complete Freq: Document 01/20/18 17:51 BILLIE (Rec: 01/20/18 17:54 BILLIE [email or web address]) Nutritional Asmnt/Malnutrition Patient General Information Nutritional Screening Moderate Risk Diagnosis psychosis Pertinent Medical Hx/Surgical Hx DM Subjective Information Per EMR, PO intake 100%. glucose level WNL. Current Diet Order/ Nutrition Support CCHO-60gm Pertinent Medications theragran Pertinent Labs 01/15 Na 127 Nutritional Hx/Data Height 1.63 m Height (Calculated Centimeters) 162.6 Current Weight (lbs) 76.204 kg Weight (Calculated Kilograms) 76.2 Weight (Calculated Grams) 36711.5 [place] Body Weight 120 Body Mass Index (BMI) 28.8 Weight Status Overweight GI Symptoms GI Symptoms None Last BM 01/17 x 2 Difficult in: None Skin Integrity/Comment: intact Current %PO Good (75-100%) Estimated Nutritional Goals Calories/Kcals/Kg 25-30 based on IBW 55kg Kcals Calculated 5359-1441 Protein g/k Protein Calculated 55 Fluid: ml 1375-1650ml (1ml/ckal) Nutritional Problem No current Nutrition Prob Problem N/A Intervention/Recommendation Comments 1. Continue with current diet as ordered. Consider regular diet d/t glucose and a1c WNL. 2. Monitor PO intake, wt, labs and skin integrity 3. F/U as low risk in 7 days, 01/27 Expected Outcomes/Goals Expected Outcomes/Goals 1. PO intake to meet at least 75% of nutritional needs. 2. Wt stability, skin to remain intact, labs to approach WNL.
--- NOTE | 2018-01-21 18:56 | Progress Notes ---
DATE: 01/21/2018 SUBJECTIVE: The patient is currently in the hospital, had been hearing voices telling her to hurt self, decompensating. Currently not suicidal, but notes she is "sick" attest to voices, not speaking in a whisper for unclear reasons. States her voice hurts. Believes she is not safe to leave the hospital. Staff noting she has been very fearful, feels that others here may harm her. Medications were reviewed. The patient is very isolative. ASSESSMENT: The patient remains symptomatic, not safe for a lower level of care, still with ongoing psychotic symptoms. I will be increasing her dose of Clozaril. The patient still with ongoing psychotic symptoms. We will monitor for any overt side effects. [facility]# [id number]
--- NOTE | 2018-01-22 08:52 | General Progress Note ---
Subjective - Review of Systems Events since last encounter: confused in no acute distress Objective - Results Result Diagrams: 01/15/18 20:22 01/15/18 20:22 Recent Labs: Laboratory Last Values WBC 9.3 Th/cmm (4.8-10.8) 01/15/18 20: RBC 4.13 Mil/cmm (3.80-5.20) 01/15/18 20:22 Hgb 11.4 gm/dL (12-16) L 01/15/18 20:22 Hct 33.9 % (41.0-60) L 01/15/18 20:22 MCV 82.0 fl (81-100) 01/15/18 20: MCH 27.7 pg (27.0-31.0) 01/15/18: MCHC Differential 33.8 pg (28.0-36.0) 01/15/18 20: RDW 13.7 % (11.5-20.0) 01/15/18 20: Plt Count 514 Th/cmm (150-400) H 01/15/18 20:22 MPV 6.1 fl 01/15/18 20:22 Neutrophils % 59.8 % (40.0-80.0) 01/15/18 20: Lymphocytes % 30.7 % (20.0-50.0) 01/15/18 20: Monocytes % 8.7 % (2.0-10.0) 01/15/18 20: Eosinophils % 0.1 % (0.0-5.0) 01/15/18: Basophils % 0.7 % (0.0-2.0) 01/15/18 20:22 Sodium 127 mEq/L (136-145) L 01/15/18 20:22 Potassium 4.0 mEq/L (3.5-5.1) 01/15/18 20: Chloride 98 mEq/L (98-107) 01/15/18 20: Carbon Dioxide 24.0 mEq/L (21.0-31.0) 01/15/18 20: Anion Gap 9.0 (7.0-16.0) 01/15/18 20:22 BUN 15 mg/dL (7-25) 01/15/18 20:22 Creatinine 0.7 mg/dL (0.6-1.2) 01/15/18 20:22 Est GFR ( Amer) > 60.0 ml/min (>90) 01/15/18 20:22 Est GFR (Non-Af Amer) > 60.0 ml/min 01/15/18 20:22 BUN/Creatinine Ratio 21.4 01/15/18 20:22 Glucose 88 mg/dL (70-105) 01/15/18 20:22 Hemoglobin A1c % 5.3 % (4.0-6.0) 01/17/18 10:45 Calcium 9.7 mg/dL (8.6-10.3) 01/15/18 20:22 Total Bilirubin 0.3 mg/dL (0.3-1.0) 01/15/18 20:22 AST 10 U/L (13-39) L 01/15/18 20:22 ALT 9 U/L (7-52) 01/15/18 20:22 Alkaline Phosphatase 94 U/L (34-104) 01/15/18 20:22 Total Protein 7.2 gm/dL (6.0-8.3) 01/15/18 20:22 Albumin 4.1 gm/dL (3.7-5.3) 01/15/18 20:22 Globulin 3.1 gm/dL 01/15/18 20:22 Albumin/Globulin Ratio 1.3 (1.0-1.8) 01/15/18 20:22 TSH 0.06 uIU/ml (0.34-5.60) L 01/15/18 20:22 RPR NONREACTIVE (NONREACTIVE) 01/15/18 20:22 - Physical Exam Vitals and I&O: Vital Signs Temp 98.8 F 01/22/18 05:38 Pulse 106 01/22/18 05:38 Resp 20 01/22/18 05:38 BP 123/71 01/22/18 05:38 Pulse Ox 92 01/22/18 05:38 Intake & Output 01/21/18 01/22/18 01/22/18 18:59 06:59 18:59 Intake Total 1000 640 Balance 1000 640 Intake: Oral 1000 640 Other: # Voids 4 1 # Bowel Movements 0 Active Medications: Current Medications Al Hydrox/Mg Hydrox/Simethicone (Maalox) 30 ml PO Q4HR PRN PRN Reason: GI DISTRESS Stop: 03/16/18 21:21 Last Admin: 01/21/18 01:33 Dose: 30 ml Albuterol Sulfate (Albuterol 2.5mg/3ml Neb Ud) 2.5 mg HHN Q4HR PRN PRN Reason: Shortness of Breath Stop: 03/22/18 01:31 Last Admin: 01/21/18 01:58 Dose: 2.5 mg Clonazepam (Klonopin) 1 mg PO BID GEMA Stop: 03/17/18 08:59 Last Admin: 01/21/18 17:30 Dose: 1 mg Clozapine (Clozaril) 350 mg PO HS GEMA Stop: 03/22/18 11:51 Last Admin: 01/21/18 21:20 Dose: 350 mg Lorazepam (Ativan) 0.5 mg PO Q4HR PRN; Protocol PRN Reason: Anxiety/agitation Stop: 02/14/18 21:21 Last Admin: 01/21/18 21:21 Dose: 0.5 mg Multivitamins/Vitamin C (Theragran) 1 tab PO DAILY GEMA Stop: 03/17/18 08:59 Last Admin: 01/21/18 09:10 Dose: 1 tab Mupirocin (Bactroban Oint) 1 appl NS BID GEMA Stop: 01/22/18 09:01 Last Admin: 01/21/18 17:33 Dose: 1 appl Quetiapine Fumarate 200 mg/ (Quetiapine Fumarate 25 mg) 225 mg PO BID GEMA Stop: 03/20/18 16:59 Last Admin: 01/21/18 17:33 Dose: 225 mg Zolpidem Tartrate (Ambien) 5 mg PO HS PRN PRN Reason: Insomnia Stop: 03/16/18 21:21 Last Admin: 01/21/18 21:21 Dose: 5 mg - Procedures Procedures: Procedures Procedure Code Date GROUP PSYCHOTHERAPY GZHZZZZ 02/23/17 Nutritional Asmnt/Malnutr-PDOC - Dietary Evaluation Malnutrition Findings (Please click <Entered> for more info): Nutritional Asmnt/Malnutrition Start: 01/20/18 17: 51 Text: Status: Complete Freq: Document 01/20/18 17:51 BILLIE (Rec: 01/20/18 17:54 BILLIE [email or web address]) Nutritional Asmnt/Malnutrition Patient General Information Nutritional Screening Moderate Risk Diagnosis psychosis Pertinent Medical Hx/Surgical Hx DM Subjective Information Per EMR, PO intake 100%. glucose level WNL. Current Diet Order/ Nutrition Support CCHO-60gm Pertinent Medications theragran Pertinent Labs 01/15 Na 127 Nutritional Hx/Data Height 1.63 m Height (Calculated Centimeters) 162.6 Current Weight (lbs) 76.204 kg Weight (Calculated Kilograms) 76.2 Weight (Calculated Grams) 98257.5 [place] Body Weight 120 Body Mass Index (BMI) 28.8 Weight Status Overweight GI Symptoms GI Symptoms None Last BM 01/17 x 2 Difficult in: None Skin Integrity/Comment: intact Current %PO Good (75-100%) Estimated Nutritional Goals Calories/Kcals/Kg 25-30 based on IBW 55kg Kcals Calculated 1487-2064 Protein g/k Protein Calculated 55 Fluid: ml 1375-1650ml (1ml/ckal) Nutritional Problem No current Nutrition Prob Problem N/A Intervention/Recommendation Comments 1. Continue with current diet as ordered. Consider regular diet d/t glucose and a1c WNL. 2. Monitor PO intake, wt, labs and skin integrity 3. F/U as low risk in 7 days, 01/27 Expected Outcomes/Goals Expected Outcomes/Goals 1. PO intake to meet at least 75% of nutritional needs. 2. Wt stability, skin to remain intact, labs to approach WNL.
[2018-01-22] MEDS: Multivitamin Tab PO SCH (10:10)
--- NOTE | 2018-01-22 13:48 | Internal Medicine Prog Note ---
Internal Medicine Subjective - Subjective Service Date: 01/22/18 Patient is:: awake, verbal Per staff patient has:: tolerating meds Internal Medicine Objective - Results Result Diagrams: 01/15/18 20:22 01/15/18 20: Recent Labs: Laboratory Last Values WBC 9.3 Th/cmm (4.8-10.8) 01/15/18 20: RBC 4.13 Mil/cmm (3.80-5.20) 01/15/18 20: Hgb 11.4 gm/dL (12-16) L 01/15/18 20: Hct 33.9 % (41.0-60) L 01/15/18 20: MCV 82.0 fl (81-100) 01/15/18 20: MCH 27.7 pg (27.0-31.0) 01/15/18: MCHC Differential 33.8 pg (28.0-36.0) 01/15/18 20: RDW 13.7 % (11.5-20.0) 01/15/18: Plt Count 514 Th/cmm (150-400) H 01/15/18 20: MPV 6.1 fl 01/15/18 20: Neutrophils % 59.8 % (40.0-80.0) 01/15/18: Lymphocytes % 30.7 % (20.0-50.0) 01/15/18: Monocytes % 8.7 % (2.0-10.0) 01/15/18: Eosinophils % 0.1 % (0.0-5.0) 01/15/18: Basophils % 0.7 % (0.0-2.0) 01/15/18 20: Sodium 127 mEq/L (136-145) L 01/15/18 20: Potassium 4.0 mEq/L (3.5-5.1) 01/15/18 20: Chloride 98 mEq/L (98-107) 01/15/18 20: Carbon Dioxide 24.0 mEq/L (21.0-31.0) 01/15/18 20: Anion Gap 9.0 (7.0-16.0) 01/15/18 20: BUN 15 mg/dL (7-25) 01/15/18 20:22 Creatinine 0.7 mg/dL (0.6-1.2) 01/15/18 20:22 Est GFR ( Amer) > 60.0 ml/min (>90) 01/15/18 20:22 Est GFR (Non-Af Amer) > 60.0 ml/min 01/15/18 20:22 BUN/Creatinine Ratio 21.4 01/15/18 20:22 Glucose 88 mg/dL (70-105) 01/15/18 20:22 Hemoglobin A1c % 5.3 % (4.0-6.0) 01/17/18 10:45 Calcium 9.7 mg/dL (8.6-10.3) 01/15/18 20:22 Total Bilirubin 0.3 mg/dL (0.3-1.0) 01/15/18 20:22 AST 10 U/L (13-39) L 01/15/18 20:22 ALT 9 U/L (7-52) 01/15/18 20:22 Alkaline Phosphatase 94 U/L (34-104) 01/15/18 20:22 Total Protein 7.2 gm/dL (6.0-8.3) 01/15/18 20:22 Albumin 4.1 gm/dL (3.7-5.3) 01/15/18 20:22 Globulin 3.1 gm/dL 01/15/18 20:22 Albumin/Globulin Ratio 1.3 (1.0-1.8) 01/15/18 20:22 TSH 0.06 uIU/ml (0.34-5.60) L 01/15/18 20:22 RPR NONREACTIVE (NONREACTIVE) 01/15/18 20:22 - Physical Exam Vitals and I&O: Vital Signs Temp 98.8 F 01/22/18 05:38 Pulse 107 01/22/18 10:04 Resp 20 01/22/18 10:04 BP 123/71 01/22/18 05:38 Pulse Ox 94 01/22/18 10:04 Intake & Output 01/21/18 01/22/18 01/22/18 18:59 06:59 18:59 Intake Total 1000 640 Balance 1000 640 Intake: Oral 1000 640 Other: # Voids 4 1 # Bowel Movements 0 Active Medications: Current Medications Al Hydrox/Mg Hydrox/Simethicone (Maalox) 30 ml PO Q4HR PRN PRN Reason: GI DISTRESS Stop: 03/16/18 21:21 Last Admin: 01/21/18 01:33 Dose: 30 ml Albuterol Sulfate (Albuterol 2.5mg/3ml Neb Ud) 2.5 mg HHN Q4HR PRN PRN Reason: Shortness of Breath Stop: 03/22/18 01:31 Last Admin: 01/21/18 01:58 Dose: 2.5 mg Clonazepam (Klonopin) 1 mg PO BID GEMA Stop: 03/17/18 08:59 Last Admin: 01/22/18 10:10 Dose: 1 mg Clozapine (Clozaril) 350 mg PO HS GEMA Stop: 03/22/18 11:51 Last Admin: 01/21/18 21:20 Dose: 350 mg Lorazepam (Ativan) 0.5 mg PO Q4HR PRN; Protocol PRN Reason: Anxiety/agitation Stop: 02/14/18 21:21 Last Admin: 01/21/18 21:21 Dose: 0.5 mg Multivitamins/Vitamin C (Theragran) 1 tab PO DAILY GEMA Stop: 03/17/18 08:59 Last Admin: 01/22/18 10:10 Dose: Not Given Quetiapine Fumarate 200 mg/ (Quetiapine Fumarate 25 mg) 225 mg PO BID [facility] Stop: 03/20/18 16:59 Last Admin: 01/22/18 10:10 Dose: 225 mg Zolpidem Tartrate (Ambien) 5 mg PO HS PRN PRN Reason: Insomnia Stop: 03/16/18 21:21 Last Admin: 01/21/18 21:21 Dose: 5 mg General: alert HEENT: NC/AT, PERRLA Neck: Supple Lungs: CTAB Cardiovascular: RRR Abdomen: soft, non-tender, non-distended, positive bowel sound Neurological: alert - Procedures Procedures: Procedures Procedure Code Date GROUP PSYCHOTHERAPY GZHZZZZ 02/23/17 Internal Medicine Assmt/Plan - Assessment Assessment: auditory hallucinations dm psychosis - Plan Plan: continue current orders Nutritional Asmnt/Malnutr-PDOC - Dietary Evaluation Malnutrition Findings (Please click <Entered> for more info): Nutritional Asmnt/Malnutrition Start: 03/13/18 17: 51 Text: Status: Complete Freq: Document 01/20/18 17:51 [email or web address] (Rec: 01/20/18 17:54 [email or web address] [email or web address]) Nutritional Asmnt/Malnutrition Patient General Information Nutritional Screening Moderate Risk Diagnosis psychosis Pertinent Medical Hx/Surgical Hx DM Subjective Information Per EMR, PO intake 100%. glucose level WNL. Current Diet Order/ Nutrition Support CCHO-60gm Pertinent Medications theragran Pertinent Labs 01/15 Na 127 Nutritional Hx/Data Height 5 ft 4 in Height (Calculated Centimeters) 162.6 Current Weight (lbs) 168 lb Weight (Calculated Kilograms) 76.2 Weight (Calculated Grams) 59661.5 [place] Body Weight 120 Body Mass Index (BMI) 28.8 Weight Status Overweight GI Symptoms GI Symptoms None Last BM 01/17 x 2 Difficult in: None Skin Integrity/Comment: intact Current %PO Good (75-100%) Estimated Nutritional Goals Calories/Kcals/Kg 25-30 based on IBW 55kg Kcals Calculated 3293-0488 Protein g/k Protein Calculated 55 Fluid: ml 1375-1650ml (1ml/ckal) Nutritional Problem No current Nutrition Prob Problem N/A Intervention/Recommendation Comments 1. Continue with current diet as ordered. Consider regular diet d/t glucose and a1c WNL. 2. Monitor PO intake, wt, labs and skin integrity 3. F/U as low risk in 7 days, 3/20 Expected Outcomes/Goals Expected Outcomes/Goals 1. PO intake to meet at least 75% of nutritional needs. 2. Wt stability, skin to remain intact, labs to approach WNL.
--- NOTE | 2018-01-22 21:15 | Discharge Summary ---
DATE OF DISCHARGE: 01/22/2018 JUSTIFICATION FOR HOSPITALIZATION: Hearing voices and suicidal. HISTORY OF PRESENT ILLNESS: A 67-year-old female with history of schizophrenia, hallucinating, command, voices to hurt self, under duress, psychological distress, and turmoil. Okay sleep. Okay appetite. No paranoia. PAST PSYCHIATRIC HISTORY: Schizophrenia, hospitalizations in the past. SOCIAL HISTORY: Noted. MENTAL STATUS EXAMINATION: Please see full psych eval for details. PROVISIONAL DIAGNOSES: Schizophrenia, also major depression, unspecified. MEDICAL: Please see full H and P. HOSPITAL COURSE: After initial assessment, the patient was restarted back on her medications including Clozaril, also, Klonopin. Medications were titrated and adjusted. She also came in on Seroquel given the complex nature of her diagnosis and her medication regimen. I essentially left everything as it is, but it would be prudent to continue to titrate Clozaril and taper Seroquel upon discharge. The patient was sleeping okay and eating okay. She did develop some hoarseness and this was treated appropriately with medical interventions and staff noting she was friendly and cooperative and consistently denying any SI. CONDITION UPON DISCHARGE: Improved, better ADLs. Good eye contact. Speech hoarse, had a whisper, but I can understand her and she is asking questions appropriately and she is friendly, socially appropriate. Mood "okay". Affect broad. Thought processes were linear and engaged. No SI. No HI. No intent. No plan. No psychotic symptoms. Denies voices. Insight and judgment better as exemplified by better insight, better understanding of her disease process and she is amenable to treatment and wants to get better. The patient hopeful and motivated. DISCHARGE DIAGNOSES: Schizophrenia, also mood unspecified; rule out bipolar affective disorder; also, anxiety, unspecified. MEDICAL: Please see full H and P. PROGNOSIS: The patient follows up with outpatient mental health services and remains treatment compliant. Prognosis will improve, otherwise guarded. The patient to be discharged to [facility] . It seems that the patient's sister is also involved. JOB# [id number]
--- NOTE | 2018-01-27 21:51 | Progress Notes ---
DATE: 01/27/2018 SUBJECTIVE: Chart reviewed and the patient interviewed. Also discussed the patient's condition with the staff and reviewed the records and labs. The patient is still reporting auditory hallucinations and hearing voices telling her to kill herself. The patient also is still showing poor hygiene, and she is still actively hallucinating and actively responding to stimuli. The patient also complaining of "constipation." She also is still paranoid and suspicious and she is still feeling agitated. ASSESSMENT: The patient is still psychotic and agitated. TREATMENT PLAN: We will continue monitoring her behavior and condition closely. Also, continue to adjust Clozaril dose, and we will continue to follow up. [facility]# [id number]
== END 2018-01-22 15:25 | disposition home or self-care (01) | DRG 885 ==
LOC: ER 19:42 → GERO2 21:00
PROVIDERS: ADMIT Psychiatry & Neurology Psychiatry; ATTEND Psychiatry & Neurology Psychiatry
DX: F20.9 Schizophrenia, unspecified (principal); E87.1 Hypo-osmolality and hyponatremia; F03.91 Unspecified dementia, unspecified severity, with behavioral disturbance; E11.9 Type 2 diabetes mellitus without complications; F29 Unspecified psychosis not due to a substance or known physiological condition; F32.9 Major depressive disorder, single episode, unspecified; F41.9 Anxiety disorder, unspecified; K21.9 Gastro-esophageal reflux disease without esophagitis
CPT/HCPCS: 36415-UA; 80053-TC; 83036-90; 84443-TC; 85025-TC; 86592-TC; 93005; 94640; 94760; J7613; Z7610